=== PATIENT | female | born 1985 | race Caucasian/White ===

== ENCOUNTER 2023-07-02 08:46 | Outpatient (OUT) | payer OTHER, SELFPAY ==
[2023-07-02 09:14] LABS: Basophils Absolute Auto 0.1 10^3/uL (0.0-0.1); Basophils Percent Auto 0.6 % (0.2-2.0); Eosinophils Absolute Auto 0.3 10^3/uL (0.0-0.7); Eosinophils Percent Auto 4.2 % (0.9-7.0); Hematocrit 40.5 % (36.0-48.0); Hemoglobin 13.6 g/dL (12.0-16.0); Immature Granulocytes Abs Auto 0.02 10^3/uL (0.00-0.03); Immature Granulocytes Pct Auto 0.3 % (0.0-0.5); Lymphocytes Absolute Auto 2.2 10^3/uL (1.2-3.8); Lymphocytes Percent Auto 27.8 % (20.5-60.0); Mean Corpuscular HGB Conc 33.6 g/dL (29.9-35.2); Mean Corpuscular Hemoglobin 30.8 pg (26.7-34.0); Mean Corpuscular Volume 91.6 fL (81.0-99.0); Mean Platelet Volume 9.7 fL (9.5-13.5); Monocytes Absolute Auto 0.5 10^3/uL (0.3-0.8); Neutrophils Absolute Auto 4.9 10^3/uL (1.4-6.5); Neutrophils Percent Auto 61.1 % (43.0-75.0); Platelet Count 306 10^3/uL (150-450); Red Blood Count 4.42 10^6/uL (4.20-5.40)
[2023-07-02 12:10] LABS: Alanine Aminotransferase 31 U/L (14-59); Albumin Globulin Ratio 1.3; Albumin Level 4.2 g/dL (3.4-5.0); Alkaline Phosphatase 85 U/L (46-116); Anion Gap 10.9; Aspartate Amino Transferase 25 U/L (15-37); BUN Creatinine Ratio 8.2; Bilirubin Total 0.6 mg/dL (0.2-1.0); Calcium 9.4 mg/dL (8.5-10.1); Carbon Dioxide 27.9 mmol/L (21.0-32.0); Chloride 101 mmol/L (98-107); Chol HDL Ratio 3.8; Cholesterol 153 mg/dL (<=200); Estimated GFR (African America >60 (>=60); Estimated GFR (Non-African Ame 56 (>=60); Free T3 2.69 pg/mL (2.18-3.98); Globulin 3.3 g/dL; Glucose 99 mg/dL (74-106); HDL Cholesterol 40 mg/dL (40-60); LDL Cholesterol Calculated 90.4 mg/dL; Potassium 3.8 mmol/L (3.5-5.1); Sodium 136 mmol/L (136-145); Thyroid Stimulating Hormone 2.282 uIU/mL (0.358-3.740); Total Protein 7.5 g/dL (6.4-8.2); Triglycerides 113 mg/dL (<=150); VLDL CHOLESTEROL 22.6 mg/dL
[2023-07-02 12:58] LABS: Estimated Average Glucose 114 mg/dL; Glycohemoglobin A1C 5.6 % (4.5-6.2)
[2023-07-03 11:09] LABS: Insulin 29.8 uIU/mL (2.6-24.9)
== END 2023-07-02 08:47 | disposition home or self-care (01) ==
LOC: LAB 08:49
PROVIDERS: PCP Family Medicine; Visit Provider Nurse Practitioner Family
DX: Z00.00 Encounter for general adult medical examination without abnormal findings (principal)
CPT/HCPCS: 36415; 80053; 80061; 82306; 83036; 83525; 83540; 84436; 84443; 84481; 85025

== ENCOUNTER 2024-01-11 20:22 | Outpatient (REF) | payer OTHER, SELFPAY ==
[2024-01-15 11:12] LABS: Age Gdln ACOG Testing Note (.); HPV Aptima Negative (Negative); IGP, Aptima HPV, rfx 16/18,45 Note (.)
== END 2024-01-11 20:23 | disposition home or self-care (01) ==
LOC: LAB 20:22
PROVIDERS: PCP Family Medicine; Visit Provider Obstetrics & Gynecology
DX: Z01.419 Encounter for gynecological examination (general) (routine) without abnormal findings (principal)
CPT/HCPCS: 87624; G0145

== ENCOUNTER 2024-01-20 20:18 | Outpatient (REF) | payer OTHER, SELFPAY ==
--- OUTSIDE RECORDS SUMMARY | 2024-01-20 20:21 | XMS_ITS | CCD ---
Author Organization [facility] Care Team Providers Care Vice President Sales And Marketing Name Role Phone MATHIEU, VIRAJ Admitting Unavailable MATHIEU, VIRAJ Attending Unavailable HOY ., DR FALCON Primary Care Unavailable MATHIEU, VIRAJ Consulting Unavailable MATHIEU, VIRAJ Admitting Unavailable MATHIEU, VIRAJ Attending Unavailable HOY ., DR FALCON Primary Care Unavailable MATHIEU, VIRAJ Admitting Unavailable MATHIEU, VIRAJ Attending Unavailable HOY ., DR FALCON Primary Care Unavailable MATHIEU, VIRAJ Consulting Unavailable ZIEBER, DR YAMILET Rodríguez Consulting Unavailable MATHIEU, VIRAJ Admitting Unavailable MATHIEU, VIRAJ Attending Unavailable HOY ., DR FALCON Primary Care Unavailable MATHIEU, VIRAJ Consulting Unavailable UNIQUE FRASER Consulting Unavailable MILLY MACIAS Consulting Unavailable HOY ., DR FALCON Primary Care Unavailable CHRISTINE ., DR RASCON Admitting Unavailable HAY ., DR RASCON Attending Unavailable RICKIE, DR CHAVEZ Hinson Consulting Unavailable HAY ., DR RASCON Consulting Unavailable MATHIEU, VIRAJ Admitting Unavailable MATHIEU, VIRAJ Attending Unavailable HOY ., DR FALCON Primary Care Unavailable MATHIEU, VIRAJ Attending Unavailable Allergies Allergy Classification Reported Allergen(s) Allergy Type Date of Onset Reaction(s) Facility (1 source) Meperidine Drug Allergy 06-11-2013 [facility] Repository Problems Active Problems Problem Classification Problem Date Documented Da te Episodic/Chronic Abdominal pain (1 source) Pelvic and perineal pain; Translations: [PELVIC AND PERINEAL PAIN] Onset: 01-23-2023 Episodic Inflammatory diseases of female pelvic organs (1 source) Inflammatory disease of cervix uteri; Translations: [INFLAMMATORY DISEASE CERVIX UTERI] Onset: 01-23-2023 Episodic Menstrual disorders (9 sources) Dysmenorrhea, unspecified; Translations: [Excessive and frequent menstruation with regular cycle] Onset: 10-29-2022 Chronic Other female genital disorders (1 source) Unspecified dyspareunia; Translations: [UNSPECIFIED DYSPAREUNIA] Onset: 01-23-2023 Chronic Other female genital disorders (1 source) Abnormal uterine and vaginal bleeding, unspecified; Translations: [ABNORMAL UTERINE VAGINAL BLEED UNS] Onset: 01-12-2023 Chronic Other nutritional; endocrine; and metabolic disorders (1 source) Morbid (severe) obesity due to excess calories; Translations: [MORBID SEVERE OBES D/T EXCESS CATRACHO] Onset: 01-23-2023 Chronic Other nutritional; endocrine; and metabolic disorders (1 source) Body mass index (BMI) 40.0-44.9, adult; Translations: [BODY MASS INDEX BMI 40.0-44.9 ADULT] Onset: 01-23-2023 Chronic Residual codes; unclassified (1 source) Acquired absence of other specified parts of digestive tract; Translations: [ACQ ABSENCE OTH PART DIGESTV TRACT] Onset: 01-23-2023 Episodic Past or Other Problems Problem Classification Problem Date Documented Da te Episodic/Chronic Other aftercare (1 source) Other detention (current) drug therapy; Translations: [OTH FORMING ACID DUMPER CURRENT DRUG THERAPY] Onset: 05-08-2022 Episodic Other lower respiratory disease (3 sources) Shortness of breath; Translations: [SHORTNESS OF BREATH] Onset: 05-07-2022 Episodic Other lower respiratory disease (1 source) Other forms of dyspnea; Translations: [OTHER FORMS OF DYSPNEA] Onset: 05-08-2022 Episodic Pleurisy; pneumothorax; pulmonary collapse (1 source) Pleurisy; Translations: [PLEURISY] Onset: 05-08-2022 Episodic Results Test Name Value Interpretation Reference Range Facil ity BUNon 01-09-2023 Urea nitrogen [Mass/Vol] 11.0 mg/dL Normal 7.0-18.0 [facility] [place] Comment on above: Performed By: #### C THANIA, BUN #### [facility] [address] [place] [address] Dr. Katty Gutierrez CBC AUTO DIFFon 01-09-2023 BASO # 0.1 103/ul Normal 0.0-0.1 [facility] [place] Comment on above: Performed By: #### B MP, LIVER #### [facility] [address] [place] [address] Dr. Katty Gutierrez Basophils/100 WBC (Bld) 0.4 % Normal 0.2-2.0 [facility] [place] Comment on above: Performed By: #### B MP, LIVER #### [facility] [address] [place] [address] Dr. Katty Gutierrez EO # 0.1 103/ul Normal 0.0-0.7 [facility] [place] Comment on above: Performed By: #### B MP, LIVER #### [facility] [address] [place] [address] Dr. Katty Gutierrez Eosinophils/100 WBC (Bld) 0.9 % Normal 0.9-7.0 [facility] [place] Comment on above: Performed By: #### B MP, LIVER #### [facility] [address] [place] [address] Dr. Katty Gutierrez Erythrocyte distribution width (RBC) [Ratio] 12.5 % Normal 11.0-15.0 [facility] [place] Comment on above: Performed By: #### B MP, LIVER #### [facility] [address] [place] [address] Dr. Katty Gutierrez Hematocrit (Bld) [Volume fraction] 33.2 % Critically low 36.0-48.0 [facility] [place] Comment on above: Performed By: #### B MP, LIVER #### [facility] [address] [place] [address] Dr. Katty Gutierrez Hemoglobin (Bld) [Mass/Vol] 11.0 g/dL Critically low 12.0-16.0 [facility] [place] Comment on above: Performed By: #### B MP, LIVER #### [facility] [address] [place] [address] Dr. Katty Gutierrez IG # 0.05 10e3/ul Critically high 0.00-0.03 [facility] Comment on above: Performed By: #### B MP, LIVER #### [facility] [address] [place] [address] Dr. Katty Gutierrez IG % 0.4 % Normal 0.0-0.5 [facility] [place] Comment on above: Performed By: #### B MP, LIVER #### [facility] [address] [place] [address] Dr. Katty Gutierrez LYMPH # 1.4 103/ul Normal 1.2-3.8 [facility] Comment on above: Performed By: #### B MP, LIVER #### [facility] [address] [place] [address] Dr. Katty Gutierrez Lymphocytes/100 WBC (Bld) 10.5 % Critically low 20.5-60.0 [facility] Comment on above: Performed By: #### B MP, LIVER #### [facility] [address] [place] [address] Dr. Katty Gutierrez MANUAL DIFF REQ NO Normal [facility] Comment on above: Performed By: #### B MP, LIVER #### [facility] [address] [place] [address] Dr. Katty Gutierrez MCH (RBC) [Entitic mass] 29.8 pg Normal 26.7-34.0 [facility] Comment on above: Performed By: #### B MP, LIVER #### [facility] [address] [place] [address] Dr. Katty Gutierrez MCHC (RBC) [Mass/Vol] 33.1 g/dL Normal 29.9-35.2 [facility] Comment on above: Performed By: #### B MP, LIVER #### [facility] [address] [place] [address] Dr. Katty Gutierrez MCV (RBC) [Entitic vol] 90.0 fL Normal 81.0-99.0 [facility] Comment on above: Performed By: #### B MP, LIVER #### [facility] [address] [place] [address] Dr. Katty Gutierrez MONO # 1.0 103/ul Critically high 0.3-0.8 [facility] Comment on above: Performed By: #### B MP, LIVER #### [facility] [address] [place] [address] Dr. Katty Gutierrez Monocytes/100 WBC (Bld) 7.5 % Normal 1.7-12.0 [facility] Comment on above: Performed By: #### B MP, LIVER #### [facility] [address] [address] [address] Katty Gutierrez NEUT # 11.0 103/ul Critically high 1.4-6.5 [facility] Comment on above: Performed By: #### B MP, LIVER #### [facility] [address] [place] [address] Dr. Katty Gutierrez Neutrophils/100 WBC (Bld) 80.3 % Critically high 43.0-75.0 [facility] Comment on above: Performed By: #### B MP, LIVER #### [facility] [address] [place] [address] Dr. Katty Gutierrez Platelet mean volume (Bld) [Entitic vol] 10.4 fL Normal 9.5-13.5 [facility] Comment on above: Performed By: #### B MP, LIVER #### [facility] [address] [place] [address] Dr. Katty Gutierrez PLT 315 103/ul Normal 150-450 [facility] Comment on above: Performed By: #### B MP, LIVER #### [facility] [address] [place] [address] Dr. Katty Gutierrez RBC 3.69 106/ul Critically low 4.20-5.40 [facility] Comment on above: Performed By: #### B MP, LIVER #### [facility] [address] [place] [address] Dr. Katty Gutierrez WBC 13.7 103/ul Critically high 4.0-11.0 [facility] Comment on above: Performed By: #### B MP, LIVER #### [facility] [address] [place] [address] Dr. Katty Gutierrez CREATININEon 01-09-2023 Creatinine [Mass/Vol] 0.86 mg/dL Normal 0.55-1.02 [facility] [place] Comment on above: Performed By: #### C THANIA, BUN #### [facility] [address] [place] [address] Dr. Katty Gutierrez EGFR-AF GUAMANIAN >60 Normal >=60 [facility] Comment on above: Performed By: #### C THANIA, BUN #### [facility] [address] [place] [address] Dr. Katty Gutierrez EGFR-NON AF GUAMANIAN >60 Normal >=60 [facility] Comment on above: Performed By: #### C THANIA, BUN #### [facility] [address] [place] [address] Dr. Katty Gutierrez PREG QUANT HCGon 01-08-2023 HCG QUANT 2 mIU/mL Normal [facility] [place] Comment on above: Performed By: #### P REGQNT #### [facility] [address] [place] [address] Dr. Katty Gutierrez HCG RANGE SEE BELOW Normal [facility] [place] Comment on above: Result Comment: 5-50 0.2-1 WEEK 50-500 1-2 WEEKS 100-5,000 2-3 WEEKS 500-10,000 3-4 WEEKS 1,000-50,000 4-5 WEEKS 10,000-100,000 5-6 WEEKS 15,000-200,000 6-8 WEEKS 10,000-100,000 2-3 MONTHS Performed By: #### P REGQNT #### [facility] [address] [place] [address] Dr. Katty Gutierrez CBC AUTO DIFFon 01-05-2023 BASO # 0.1 103/ul Normal 0.0-0.1 [facility] [place] Comment on above: Performed By: #### P REGQNT #### [facility] [address] [place] [address] Dr. Katty Gutierrez Basophils/100 WBC (Bld) 0.7 % Normal 0.2-2.0 [facility] [place] Comment on above: Performed By: #### P REGQNT #### [facility] [address] [place] [address] Dr. Katty Gutierrez EO # 0.4 103/ul Normal 0.0-0.7 [facility] [place] Comment on above: Performed By: #### P REGQNT #### [facility] [address] [place] [address] Dr. Katty Gutierrez Eosinophils/100 WBC (Bld) 4.4 % Normal 0.9-7.0 [facility] [place] Comment on above: Performed By: #### P REGQNT #### [facility] [address] [place] [address] Dr. Katty Gutierrez Erythrocyte distribution width (RBC) [Ratio] 12.5 % Normal 11.0-15.0 [facility] [place] Comment on above: Performed By: #### P REGQNT #### [facility] [address] [place] [address] Dr. Katty Gutierrez Hematocrit (Bld) [Volume fraction] 39.1 % Normal 36.0-48.0 [facility] [place] Comment on above: Performed By: #### P REGQNT #### [facility] [address] [place] [address] Dr. Katty Gutierrez Hemoglobin (Bld) [Mass/Vol] 13.6 g/dL Normal 12.0-16.0 [facility] [place] Comment on above: Performed By: #### P REGQNT #### [facility] [address] [place] [address] Dr. Katty Gutierrez IG # 0.04 10e3/ul Critically high 0.00-0.03 [facility] Comment on above: Performed By: #### P REGQNT #### [facility] [address] [place] [address] Dr. Katty Gutierrez IG % 0.5 % Normal 0.0-0.5 [facility] [place] Comment on above: Performed By: #### P REGQNT #### [facility] [address] [place] [address] Dr. Katty Gutierrez LYMPH # 2.1 103/ul Normal 1.2-3.8 [facility] [place] Comment on above: Performed By: #### P REGQNT #### [facility] [address] [place] [address] Dr. Katty Gutierrez Lymphocytes/100 WBC (Bld) 25.2 % Normal 20.5-60.0 [facility] [place] Comment on above: Performed By: #### P REGQNT #### [facility] [address] [place] [address] Dr. Katty Gutierrez MANUAL DIFF REQ NO Normal [facility] Comment on above: Performed By: #### P REGQNT #### [facility] [address] [place] [address] Dr. Katty Gutierrez MCH (RBC) [Entitic mass] 30.4 pg Normal 26.7-34.0 [facility] [place] Comment on above: Performed By: #### P REGQNT #### [facility] [address] [place] [address] Dr. Katty Gutierrez MCHC (RBC) [Mass/Vol] 34.8 g/dL Normal 29.9-35.2 [facility] [place] Comment on above: Performed By: #### P REGQNT #### [facility] [address] [place] [address] Dr. Katty Gutierrez MCV (RBC) [Entitic vol] 87.3 fL Normal 81.0-99.0 [facility] [place] Comment on above: Performed By: #### P REGQNT #### [facility] [address] [place] [address] Dr. Katty Gutierrez MONO # 0.7 103/ul Normal 0.3-0.8 [facility] [place] Comment on above: Performed By: #### P REGQNT #### [facility] [address] [place] [address] Dr. Katty Gutierrez Monocytes/100 WBC (Bld) 8.2 % Normal 1.7-12.0 [facility] [place] Comment on above: Performed By: #### P REGQNT #### [facility] [address] [place] [address] Dr. Katty Gutierrez NEUT # 5.0 103/ul Normal 1.4-6.5 [facility] Comment on above: Performed By: #### P REGQNT #### [facility] [address] [place] [address] Dr. Katty Gutierrez Neutrophils/100 WBC (Bld) 61.0 % Normal 43.0-75.0 [facility] [place] Comment on above: Performed By: #### P REGQNT #### [facility] [address] [place] [address] Dr. Katty Gutierrez Platelet mean volume (Bld) [Entitic vol] 9.8 fL Normal 9.5-13.5 [facility] [place] Comment on above: Performed By: #### P REGQNT #### [facility] [address] [place] [address] Dr. Katty Gutierrez PLT 321 103/ul Normal 150-450 [facility] [place] Comment on above: Performed By: #### P REGQNT #### [facility] [address] [place] [address] Dr. Katty Gutierrez RBC 4.48 106/ul Normal 4.20-5.40 [facility] [place] Comment on above: Performed By: #### P REGQNT #### [facility] [address] [place] [address] Dr. Katty Gutierrez WBC 8.3 103/ul Normal 4.0-11.0 [facility] [place] Comment on above: Performed By: #### P REGQNT #### [facility] [address] [place] [address] Dr. Katty Gutirerez LIVER PROFILEon 01-05-2023 Albumin [Mass/Vol] 4.1 g/dL Normal 3.4-5.0 [facility] Comment on above: Performed By: #### B MP, LIVER #### [facility] [address] [place] [address] Dr. Katty Gutierrez Albumin/Globulin [Mass ratio] 1.3 {ratio} Normal [facility] [place] Comment on above: Performed By: #### B MP, LIVER #### [facility] [address] [place] [address] Dr. Katty Gutierrez ALP [Catalytic activity/Vol] 91 U/L Normal 46-116 [facility] Comment on above: Performed By: #### B MP, LIVER #### [facility] [address] [place] [address] Dr. Katty Gutierrez ALT [Catalytic activity/Vol] 41 U/L Normal 14-59 [facility] Comment on above: Performed By: #### B MP, LIVER #### [facility] [address] [place] [address] Dr. Katty Gutierrez AST [Catalytic activity/Vol] 18 U/L Normal 15-37 [facility] [place] Comment on above: Performed By: #### B MP, LIVER #### [facility] [address] [place] [address] Dr. Katty Gutierrez BILI, CONJUGATED 0.1 mg/dL Normal 0.0-0.2 [facility] Comment on above: Performed By: #### B MP, LIVER #### [facility] [address] [place] [address] Dr. Katty Gutierrez Bilirubin [Mass/Vol] 0.6 mg/dL Normal 0.2-1.0 [facility] [place] Comment on above: Performed By: #### B MP, LIVER #### [facility] [address] [place] [address] Dr. Katty Gutierrez Globulin (S) [Mass/Vol] 3.1 g/dL Normal [facility] [place] Comment on above: Performed By: #### B MP, LIVER #### [facility] [address] [place] [address] Dr. Katty Gutierrez Protein [Mass/Vol] 7.2 g/dL Normal 6.4-8.2 [facility] Comment on above: Performed By: #### B MP, LIVER #### [facility] [address] [place] [address] Dr. Katty Gutierrez PROF CHEM 8 (BAS METB)on Anion gap [Moles/Vol] 13.0 mmol/L Normal [facility] [place] Comment on above: Performed By: #### B MP, LIVER #### [facility] [address] [place] [address] Dr. Katty Gutierrez Calcium [Mass/Vol] 9.2 mg/dL Normal 8.5-10.1 [facility] Comment on above: Performed By: #### B MP, LIVER #### [facility] [address] [place] [address] Dr. Katty Gutierrez Chloride [Moles/Vol] 105 mmol/L Normal 98-107 [facility] Comment on above: Performed By: #### B MP, LIVER #### [facility] [address] [place] [address] Dr. Katty Gutierrez CO2 [Moles/Vol] 25.0 mmol/L Normal 21.0-32.0 [facility] Comment on above: Performed By: #### B MP, LIVER #### [facility] [address] [place] [address] Dr. Katty Gutierrez Creatinine [Mass/Vol] 0.84 mg/dL Normal 0.55-1.02 [facility] [place] Comment on above: Performed By: #### B MP, LIVER #### [facility] [address] [place] [address] Dr. Katty Gutierrez EGFR-AF GUAMANIAN >60 Normal >=60 [facility] Comment on above: Performed By: #### B MP, LIVER #### [facility] [address] [place] [address] Dr. Katty Gutierrez EGFR-NON AF GUAMANIAN >60 Normal >=60 [facility] [place] Comment on above: Performed By: #### B MP, LIVER #### [facility] [address] [place] [address] Dr. Katty Gutierrez Glucose [Mass/Vol] 121 mg/dL Critically high 74-106 [facility] Comment on above: Performed By: #### B MP, LIVER #### [facility] [address] [place] [address] Dr. Katty Gutierrez Potassium [Moles/Vol] 4.0 mmol/L Normal 3.5-5.1 [facility] Comment on above: Performed By: #### B MP, LIVER #### [facility] [address] [place] [address] Dr. Katty Gutierrez Sodium [Moles/Vol] 139 mmol/L Normal 136-145 [facility] Comment on above: Performed By: #### B MP, LIVER #### [facility] [address] [place] [address] Dr. Katty Gutierrez Urea nitrogen [Mass/Vol] 13.0 mg/dL Normal 7.0-18.0 [facility] [place] Comment on above: Performed By: #### B MP, LIVER #### [facility] [address] [place] [address] Dr. Katty Gutierrez Urea nitrogen/Creatinine [Mass ratio] 15.5 mg/mg Normal [facility] Comment on above: Performed By: #### B MP, LIVER #### [facility] [address] [place] [address] Dr. Katty Gutierrez PROTIMEon 01-05-2023 INR Coag (PPP) [Relative time] 0.96 {INR} Normal [facility] Comment on above: Performed By: #### P T, PTT #### [facility] [address] [place] [address] Dr. Katty Gutierrez INR GUIDELINES SEE BELOW Normal [facility] Comment on above: Result Comment: RICARDA RED INR: 2.0 - 3.0 CONDITIONS NOT LISTED BELOW 2.5 - 3.5 FOR PROSTHETIC HEART VALVE REPLACEMENT 2.5 - 3.5 RECURRENT THROMBOSIS Performed By: #### P T, PTT #### [facility] [address] [place] [address] Dr. Katty Gutierrez PT Coag (PPP) [Time] 10.2 s Normal 9.0-11.6 [facility] [place] Comment on above: Performed By: #### P T, PTT #### [facility] [address] [place] [address] Dr. Katty Gutierrez PTTon 01-05-2023 aPTT Coag (Bld) [Time] 26.2 s Normal 22.3-36.2 [facility] Comment on above: Performed By: #### P T, PTT #### [facility] [address] [place] [address] Dr. Katty Gutierrez TYPE AND SCREENon 01-05-2023 TYPE AND SCREEN Negative Normal [facility] Comment on above: Performed By: #### B MP, LIVER #### [facility] [address] [place] [address] Dr. Katty Gutierrez CBC AUTO DIFFon 10-29-2022 BASO # 0.1 103/ul Normal 0.0-0.1 [facility] [place] Comment on above: Performed By: #### C BC #### [facility] [address] [place] [address] Dr. Katty Gutierrez Basophils/100 WBC (Bld) 0.7 % Normal 0.2-2.0 [facility] [place] Comment on above: Performed By: #### C BC #### [facility] [address] [place] [address] Dr. Katty Gutierrez EO # 0.3 103/ul Normal 0.0-0.7 [facility] [place] Comment on above: Performed By: #### C BC #### [facility] [address] [place] [address] Dr. Katty Gutierrez Eosinophils/100 WBC (Bld) 3.2 % Normal 0.9-7.0 [facility] [place] Comment on above: Performed By: #### C BC #### [facility] [address] [place] [address] Dr. Katty Gutierrez Erythrocyte distribution width (RBC) [Ratio] 12.4 % Normal 11.0-15.0 [facility] [place] Comment on above: Performed By: #### C BC #### [facility] [address] [place] [address] Dr. Katty Gutierrez Hematocrit (Bld) [Volume fraction] 42.7 % Normal 36.0-48.0 [facility] [place] Comment on above: Performed By: #### C BC #### [facility] [address] [place] [address] Dr. Katty Gutierrez Hemoglobin (Bld) [Mass/Vol] 14.3 g/dL Normal 12.0-16.0 [facility] [place] Comment on above: Performed By: #### C BC #### [facility] [address] [place] [address] Dr. Katty Gutierrez IG # 0.04 10e3/ul Critically high 0.00-0.03 [facility] Comment on above: Performed By: #### C BC #### [facility] [address] [place] [address] Dr. Katty Gutierrez IG % 0.4 % Normal 0.0-0.5 [facility] [place] Comment on above: Performed By: #### C BC #### [facility] [address] [place] [address] Dr. Katty Gutierrez LYMPH # 2.5 103/ul Normal 1.2-3.8 [facility] [place] Comment on above: Performed By: #### C BC #### [facility] [address] [place] [address] Dr. Katty Gutierrez Lymphocytes/100 WBC (Bld) 24.7 % Normal 20.5-60.0 [facility] [place] Comment on above: Performed By: #### C BC #### [facility] [address] [place] [address] Dr. Katty Gutierrez MANUAL DIFF REQ NO Normal [facility] Comment on above: Performed By: #### C BC #### [facility] [address] [place] [address] Dr. Katty Gutierrez MCH (RBC) [Entitic mass] 30.0 pg Normal 26.7-34.0 [facility] [place] Comment on above: Performed By: #### C BC #### [facility] [address] [place] [address] Dr. Katty Gutierrez MCHC (RBC) [Mass/Vol] 33.5 g/dL Normal 29.9-35.2 [facility] [place] Comment on above: Performed By: #### C BC #### [facility] [address] [place] [address] Dr. Katty Gutierrez MCV (RBC) [Entitic vol] 89.7 fL Normal 81.0-99.0 [facility] [place] Comment on above: Performed By: #### C BC #### [facility] [address] [place] [address] Dr. Katty Gutierrez MONO # 0.7 103/ul Normal 0.3-0.8 [facility] [place] Comment on above: Performed By: #### C BC #### [facility] [address] [place] [address] Dr. Katty Gutierrez Monocytes/100 WBC (Bld) 7.0 % Normal 1.7-12.0 [facility] [place] Comment on above: Performed By: #### C BC #### [facility] [address] [place] [address] Dr. Katty Gutierrez NEUT # 6.5 103/ul Normal 1.4-6.5 [facility] [place] Comment on above: Performed By: #### C BC #### [facility] [address] [place] [address] Dr. Katty Gutierrez Neutrophils/100 WBC (Bld) 64.0 % Normal 43.0-75.0 [facility] [place] Comment on above: Performed By: #### C BC #### [facility] [address] [place] [address] Dr. Katty Gutierrez Platelet mean volume (Bld) [Entitic vol] 9.5 fL Normal 9.5-13.5 [facility] [place] Comment on above: Performed By: #### C BC #### [facility] [address] [place] [address] Dr. Katty Gutierrez PLT 363 103/ul Normal 150-450 [facility] [place] Comment on above: Performed By: #### C BC #### [facility] [address] [place] [address] Dr. aKtty Gutierrez RBC 4.76 106/ul Normal 4.20-5.40 [facility] [place] Comment on above: Performed By: #### C BC #### [facility] [address] [place] [address] Dr. Katty Gutierrez WBC 10.1 103/ul Normal 4.0-11.0 [facility] [place] Comment on above: Performed By: #### C BC #### [facility] [address] [place] [address] Dr. Katty Gutierrez FREE T4on 10-29-2022 Free T4 [Mass/Vol] 1.04 ng/dL Normal 0.76-1.46 [facility] Comment on above: Performed By: #### P REGQNT #### [facility] [address] [place] [address] Dr. Katty Gutierrez PREG QUANT HCGon 10-29-2022 HCG QUANT <1 Normal [facility] [place] Comment on above: Performed By: #### P REGQNT, TSH #### [facility] [address] [place] [address] Dr. Katty Gutierrez HCG RANGE SEE BELOW Normal [facility] [place] Comment on above: Result Comment: 5-50 0.2-1 WEEK 50-500 1-2 WEEKS 100-5,000 2-3 WEEKS 500-10,000 3-4 WEEKS 1,000-50,000 4-5 WEEKS 10,000-100,000 5-6 WEEKS 15,000-200,000 6-8 WEEKS 10,000-100,000 2-3 MONTHS Performed By: #### P REGQNT, TSH #### [facility] [address] [place] [address] Dr. Katty Gutierrez PROTIMEon 10-29-2022 INR Coag (PPP) [Relative time] 0.97 {INR} Normal [facility] Comment on above: Performed By: #### P REGQNT #### [facility] [address] [place] [address] Dr. Katty Gutierrez INR GUIDELINES SEE BELOW Normal [facility] Comment on above: Result Comment: RICARDA RED INR: 2.0 - 3.0 CONDITIONS NOT LISTED BELOW 2.5 - 3.5 FOR PROSTHETIC HEART VALVE REPLACEMENT 2.5 - 3.5 RECURRENT THROMBOSIS Performed By: #### P REGQNT #### [facility] [address] [place] [address] Dr. Katty Gutierrez PT Coag (PPP) [Time] 10.5 s Normal 9.0-11.6 [facility] [place] Comment on above: Performed By: #### P REGQNT #### [facility] [address] [place] [address] Dr. Katty Gutierrez PTTon 10-29-2022 aPTT Coag (Bld) [Time] 26.7 s Normal 22.3-36.2 [facility] [place] Comment on above: Performed By: #### P REGQNT #### [facility] [address] [place] [address] Dr. Katty Gutierrez TSHon 10-29-2022 TSH 1.956 uIU/mL Normal 0.358-3.740 [facility] Comment on above: Performed By: #### P REGQNT, TSH #### [facility] [address] [place] [address] Dr. Katty Gutierrez US PELVIS AND TRANSVAGon US PELVIS AND TRANSVAG EXAMINATION: US PELVIS AND TRANSVAG HISTORY: Irregular periods ; heavy, painful periods COMPARISON: No relevant comparison available. TECHNIQUE: Transabdominal and transvaginal sonographic examination. FINDINGS: UTERUS: Numerous nabothian cysts within the cervix. Uterus size: 9.6 x 7.60 6.0 cm ENDOMETRIUM: Heterogeneous and abnormally thickened endometrium with a slightly more defined 1.4 x 1.8 x 0.6 cm area within the fundal region; mass versus blood products. Endometrial thickness: 17 mm. RIGHT OVARY: Contains a 2.3 cm benign-appearing cysts. Duplex Doppler demonstrates normal waveform and flow; resistive index 0.4. Ovary size: 4.3 x 3.0 x 3.2 cm LEFT OVARY: Normal size and appearance. Duplex Doppler demonstrates normal waveform and flow; resistive index 0.4. Ovary size: 3.0 x 2.8 x 2.0 cm CUL-DE-SAC: Unremarkable. No significant free fluid. BLADDER: Unremarkable. OTHER: None. IMPRESSION: 1. Polyp/mass within the fundal endometrial cavity versus blood products. Abnormally thickened, heterogeneous endometrium (17 mm). Follow-up ultrasound in 6 weeks is recommended to evaluate persistence of these findings versus resolution. Electronically authenticated by: YAMILET SHAH Date: 2022-10-29 17:23 Normal [facility] BNPon 05-07-2022 Natriuretic peptide B (Bld) [Mass/Vol] 12.0 pg/mL Normal <=450.0 [facility] Comment on above: Performed By: #### P REGQNT #### [facility] [address] [address] [address] Katty Gutierrez CBC AUTO DIFFon 05-07-2022 BASO # 0.1 103/ul Normal 0.0-0.1 [facility] [place] Comment on above: Performed By: #### P REGQNT #### [facility] [address] [address] [address] Katty Gutierrez Basophils/100 WBC (Bld) 0.6 % Normal 0.2-2.0 [facility] [place] Comment on above: Performed By: #### P REGQNT #### [facility] [address] [place] [address] Dr. Katty Gutierrez EO # 0.3 103/ul Normal 0.0-0.7 [facility] Comment on above: Performed By: #### P REGQNT #### [facility] [address] [place] [address] Dr. Katty Gutierrez Eosinophils/100 WBC (Bld) 4.0 % Normal 0.9-7.0 [facility] Comment on above: Performed By: #### P REGQNT #### [facility] [address] [place] [address] Dr. Katty Gutierrez Erythrocyte distribution width (RBC) [Ratio] 12.7 % Normal 11.0-15.0 [facility] Comment on above: Performed By: #### P REGQNT #### [facility] [address] [place] [address] Dr. Katty Gutierrez Hematocrit (Bld) [Volume fraction] 40.6 % Normal 36.0-48.0 [facility] [place] Comment on above: Performed By: #### P REGQNT #### [facility] [address] [place] [address] Dr. Katty Gutierrez Hemoglobin (Bld) [Mass/Vol] 13.5 g/dL Normal 12.0-16.0 [facility] [place] Comment on above: Performed By: #### P REGQNT #### [facility] [address] [place] [address] Dr. Katty Gutierrez IG # 0.03 10e3/ul Normal 0.00-0.03 [facility] Comment on above: Performed By: #### P REGQNT #### [facility] [address] [place] [address] Dr. Katty Gutierrez IG % 0.4 % Normal 0.0-0.5 [facility] Comment on above: Performed By: #### P REGQNT #### [facility] [address] [place] [address] Dr. Katty Gutierrez LYMPH # 2.3 103/ul Normal 1.2-3.8 [facility] Comment on above: Performed By: #### P REGQNT #### [facility] [address] [place] [address] Dr. Katty Gutierrez Lymphocytes/100 WBC (Bld) 27.4 % Normal 20.5-60.0 [facility] [place] Comment on above: Performed By: #### P REGQNT #### [facility] [address] [place] [address] Dr. Katty Gutierrez MANUAL DIFF REQ NO Normal [facility] Comment on above: Performed By: #### P REGQNT #### [facility] [address] [place] [address] Dr. Katty Gutierrez MCH (RBC) [Entitic mass] 29.9 pg Normal 26.7-34.0 [facility] Comment on above: Performed By: #### P REGQNT #### [facility] [address] [place] [address] Dr. Katty Gutierrez MCHC (RBC) [Mass/Vol] 33.3 g/dL Normal 29.9-35.2 [facility] Comment on above: Performed By: #### P REGQNT #### [facility] [address] [place] [address] Dr. Katty Gutierrez MCV (RBC) [Entitic vol] 90.0 fL Normal 81.0-99.0 [facility] [place] Comment on above: Performed By: #### P REGQNT #### [facility] [address] [place] [address] Dr. Katty Gutierrez MONO # 0.6 103/ul Normal 0.3-0.8 [facility] [place] Comment on above: Performed By: #### P REGQNT #### [facility] [address] [place] [address] Dr. Katty Gutierrez Monocytes/100 WBC (Bld) 7.2 % Normal 1.7-12.0 [facility] Comment on above: Performed By: #### P REGQNT #### [facility] [address] [place] [address] Dr. Katty Gutierrez NEUT # 5.1 103/ul Normal 1.4-6.5 [facility] Comment on above: Performed By: #### P REGQNT #### [facility] [address] [address] [address] Katty Gutierrez Neutrophils/100 WBC (Bld) 60.4 % Normal 43.0-75.0 [facility] [place] Comment on above: Performed By: #### P REGQNT #### [facility] [address] [place] [address] Dr. Katty Gutierrez Platelet mean volume (Bld) [Entitic vol] 10.0 fL Normal 9.5-13.5 [facility] [place] Comment on above: Performed By: #### P REGQNT #### [facility] [address] [place] [address] Dr. Katty Gutierrez PLT 319 103/ul Normal 150-450 [facility] [place] Comment on above: Performed By: #### P REGQNT #### [facility] [address] [place] [address] Dr. aKtty Gutierrez RBC 4.51 106/ul Normal 4.20-5.40 [facility] Comment on above: Performed By: #### P REGQNT #### [facility] [address] [place] [address] Dr. Katty Gutierrez WBC 8.5 103/ul Normal 4.0-11.0 [facility] [place] Comment on above: Performed By: #### P REGQNT #### [facility] [address] [place] [address] Dr. Katty Gutierrez CTA CHEST WO W CONon 07-13-2 022 CTA CHEST WO W CON EXAMINATION: CTA CHEST WO W CON HISTORY: SHORTNESS OF BREATH , chest pressure COMPARISON: No relevant comparison available. TECHNIQUE: Axial, Coronal, and Sagittal images were created without and with IV contrast. Dose reduction techniques were achieved by using automated exposure control and/or adjustment of mA and/or kV according to patient size and/or use of iterative reconstruction technique. FINDINGS: LUNGS: No visible pulmonary disease. PLEURA: No mass, effusion, or pneumothorax. VASCULATURE: No abnormality. JUDY: No mass or adenopathy. MEDIASTINUM: No mass or adenopathy. CARDIAC: No enlargement, pericardial thickening, or significant calcification. AORTA: No aneurysm or dissection. CHEST WALL: No mass or axillary adenopathy. BONES: No bone lesion or fracture. LIMITED ABDOMEN: No suspicious findings. Limited images of the upper abdomen. OTHER: Negative. IMPRESSION: No central pulmonary thromboembolic disease Clear lungs Electronically authenticated by: CHAVEZ DAMIAN Date: 2022-05-07 12:19 Normal [facility] PROF CHEM 8 (BAS METB)on Anion gap [Moles/Vol] 14.9 mmol/L Normal [facility] [place] Comment on above: Performed By: #### P REGQNT #### [facility] [address] [address] [address] Katty Gutierrez Calcium [Mass/Vol] 9.4 mg/dL Normal 8.5-10.1 [facility] Comment on above: Performed By: #### P REGQNT #### [facility] [address] [place] [address] Dr. Katty Gutierrez Chloride [Moles/Vol] 104 mmol/L Normal 98-107 [facility] [place] Comment on above: Performed By: #### P REGQNT #### [facility] [address] [place] [address] Dr. Katty Gutierrez CO2 [Moles/Vol] 26.1 mmol/L Normal 21.0-32.0 [facility] Comment on above: Performed By: #### P REGQNT #### [facility] [address] [place] [address] Dr. Katty Gutierrez Creatinine [Mass/Vol] 0.96 mg/dL Normal 0.55-1.02 [facility] [place] Comment on above: Performed By: #### P REGQNT #### [facility] [address] [place] [address] Dr. Katty Gutierrez EGFR-AF GUAMANIAN >60 Normal >=60 [facility] Comment on above: Performed By: #### P REGQNT #### [facility] [address] [place] [address] Dr. Katty Gutierrez EGFR-NON AF GUAMANIAN >60 Normal >=60 [facility] [place] Comment on above: Performed By: #### P REGQNT #### [facility] [address] [place] [address] Dr. Katty Gutierrez Glucose [Mass/Vol] 104 mg/dL Normal 74-106 [facility] Comment on above: Performed By: #### P REGQNT #### [facility] [address] [address] [address] Katty Gutierrez Potassium [Moles/Vol] 4.0 mmol/L Normal 3.5-5.1 [facility] [place] Comment on above: Performed By: #### P REGQNT #### [facility] [address] [address] [address] Katty Gutierrez Sodium [Moles/Vol] 141 mmol/L Normal 136-145 [facility] Comment on above: Performed By: #### P REGQNT #### [facility] [address] [place] [address] Dr. Katty Gutierrez Urea nitrogen [Mass/Vol] 8.0 mg/dL Normal 7.0-18.0 [facility] [place] Comment on above: Performed By: #### P REGQNT #### [facility] [address] [place] [address] Dr. Katty Gutierrez Urea nitrogen/Creatinine [Mass ratio] 8.3 mg/mg Normal [facility] [place] Comment on above: Performed By: #### P REGQNT #### [facility] [address] [place] [address] Dr. Katty Gutierrez TROPONIN, HIGH SENSITIVITYon 05-07-2022 HSTROP <4.0 Normal 4.0-51.3 [facility] [place] Comment on above: Result Comment: CUT- OFF POINTS HAVE BEEN ESTABLISHED BASED ON THE FOURTH UNIVERSAL DEFINITIONS OF MYOCARDIAL INFARCTION. THE UPPER REFERENCE LIMIT (URL) OF TROPONIN, DEFINED THE 99TH PERCENTILE OF cTnI DISTRIBUTION IN A REFERENCE POPULATION, HAS BEEN CONFIRMED THE DECISION THRESHOLD FOR VA DIAGNOSIS. Performed By: #### P REGQNT #### [facility] [address] [place] [address] Dr. Katty Gutierrez Encounters Encounter Date Encounter Type Care Provider Facility Start: 01-11-2024 End: 01-11-2024 ambulatory VIRAJ WRIGHT Not Available Start: 01-12-2023 Encounter for prepro cedural cardiovascular examination VIRAJ WRIGHT [facility] Start: 01-08-2023 End: 01-09-2023 ambulatory VIRAJ MATHIEU Facility:[facility] Start: 01-05-2023 End: 01-06-2023 ambulatory VIRAJ MATHIEU Facility:[facility] Start: 01-05-2023 End: 01-06-2023 Encounter for preprocedural cardiovascular examination VIRAJ ZALDIVARO Facility:[facility] Start: 12-29-2022 Encounter for other preprocedural examination VIRAJ MATHIEU [facility] [place] Start: 12-26-2022 End: 12-27-2022 ambulatory VIRAJ MATHIEU Facility:[facility] Start: 12-26-2022 End: 12-27-2022 Encounter for other preprocedural examination VIRAJ ZALDIVARO Facility:[facility] Start: 10-29-2022 End: 10-30-2022 ambulatory VIRAJ MATHIEU Facility:[facility] Start: 05-29-2022 ambulatory VIRAJ ZALDIVARO Facility:[facility] Start: 05-07-2022 End: 05-07-[address] TERRIE BE . Facility:[facility] Payers Date Payer Category Payer Unknown [id number] 2.16.84 [id number] 1987 Unknown [id number] 2.16.84 [id number] 1987 Unknown [id number] 2.16.84 [id number] 1987 Unknown [id number] 2.16.84 [id number] 1987 Unknown [id number] 2.16.84 [id number] 1987 Unknown [id number] 2.16.84 [id number] 1987 Unknown [id number] 2.16.84 [id number] 1959 Private Health Insurance [id number] 1957 Self-pay Clinical Note 03-16-2023 Note Date & Type Note Facility 01-08-2023 Note OPERATIVE NOTE OPERATION DATE: 01/08/2023 PROCEDURE: Robotic assisted laparoscopic hysterectomy with bilateral salpingectomy with right oophorectomy. PREOPERATIVE DIAGNOSIS: Menorrhagia, dysmenorrhea, dyspareunia, pelvic pain. POSTOPERATIVE DIAGNOSIS: Menorrhagia, dysmenorrhea, dyspareunia, pelvic pain. ANESTHESIA: General. SURGEON: Viraj Wright D.O. TRAFFIC MAINTENANCE OFFICER: AVTAR Gilbert URINE OUTPUT: Yellow and clear. BLOOD LOSS: 150 mL. SPECIMEN: Uterus, bilateral tubes and right ovary. FINDINGS: Enlarged uterus. Normal appearing ovaries and tubes. PROCEDURE: The patient was taken back to the operating room, where she was prepped and draped in the normal sterile fashion after being placed in the dorsal lithotomy position. Patient's anesthesia was found to be adequate. Surgical timeout was performed using two patient identifiers. SCDs were on and in place. Two grams of Ancef were given prior to the surgery. Sterile Grewal catheter was inserted. Standard size VCare was secured to the uterine cervix and the surgeon changed gloves. Attention then was turned to the patient's abdomen, where a supraumbilical incision was then made. Two S retractors were used to identify the patient's fascia. The fascia was then tented up using Dom clamps and the patient's fascia was incised sharply. Patient's abdomen was identified and entered bluntly. The patient had the trocar placed and a pneumoperitoneum was obtained. Approximately 4 liters of CO2 gas was used. The camera was then placed through the trocar. At this time, two robot trocars were placed in the patient's left and right side, two hand widths from the midline, and this was placed under direct visualization. The patient's tube on the right side was tended up and the vessel sealer was then used to come across the mesosalpinx, and this was carried down to the uterine ovarian ligament. The vessel sealer was carried down serially to the broad ligament, to the area of the bladder flap, which was then created anteriorly, and the uterine arteries were skeletonized and sealed using the vessel sealer. The colpotomy was made using the monopolar cautery on cut, and this was carried circumferentially, posteriorly to anteriorly, until the uterus was amputated. The specimen was then removed intact through the vagina, without difficulty. The vagina was then closed using two running V-Loc in a non-lock fashion. The robot was undocked. The abdomen was desufflated. The skin defects were closed using 4-0 Vicryl. Please note, the fascia was closed using 0 Vicryl. Sponge, lap and needle counts were correct x2. Patient was taken to recovery room in stable condition. The patient was awakened by Anesthesia first. Patient tolerated procedure well [facility] Clinical Note 01-08-2023 Note Date & Type Note Facility 01-08-2023 Note OP Note OPERATION DATE: 01/08/2023 ADDENDUM: Please note that the patient had her right ovary removed. Please note that the vessel sealer was used to come across the infundibulopelvic ligament, down to the broad ligament. Otherwise, the note can stay the same. [facility] Summary Purpose Family History No Family History Records FoundNo Family History Records Found Advance Directives No Advanced Directives Records FoundNo Advanced Directives Records Found Additional Source Comments INFORMATION SOURCE (unrecogn ized section and content) DATE CREATED AUTHOR 02/18/2023 [facility] DATE CREATED AUTHOR AUTHOR'S ORGANIZ ATION 01/11/2024 [facility] EPIC FOR RECORDS PERTAINING TO PATIENTS WHO ARE OR HAVE BEEN ENROLLED IN A CHEMICAL DEPENDENCY/SUBSTANCEABUSE PROGRAM, SOME INFORMATION MAY BE OMITTED. This clinical summary was aggregated from multiple sources. Caution should be exercised in using it in the provision of clinical care. This summary normalizes information from multiple sources, and as a consequence, information in this document may materially change the coding, format and clinical context of patient data. In addition, data may be omitted in some cases. CLINICAL DECISIONS SHOULD BE BASED ON THE PRIMARY CLINICAL RECORDS. [facility] [employer] provides no warranty or guarantee of the accuracy or completeness of information in this document.
== END 2024-01-20 20:19 | disposition home or self-care (01) ==
LOC: LAB 20:18
PROVIDERS: PCP Family Medicine; Visit Provider Obstetrics & Gynecology
DX: Z01.419 Encounter for gynecological examination (general) (routine) without abnormal findings (principal); R87.615 Unsatisfactory cytologic smear of cervix; D22.5 Melanocytic nevi of trunk
CPT/HCPCS: 36415; 88304

== ENCOUNTER 2025-04-25 07:18 | Outpatient (OUT) | payer OTHER, SELFPAY ==
--- OUTSIDE RECORDS SUMMARY | 2025-04-25 07:21 | XMS_ITS | CCD ---
Author Organization [facility] Care Team Providers Care Vest Maker Name Role Phone MATHIEU, VIRAJ Admitting Unavailable MATHIEU, VIRAJ Attending Unavailable HOY ., DR FALCON Primary Care Unavailable MATHIEU, VIRAJ Consulting Unavailable MATHIEU, VIRAJ Admitting Unavailable MATHIEU, VIRAJ Attending Unavailable HOY ., DR FALCON Primary Care Unavailable MATHIEU, VIRAJ Admitting Unavailable MATHIEU, VIRAJ Attending Unavailable HOY ., DR FALCON Primary Care Unavailable MATHIEU, VIRAJ Consulting Unavailable LAYSSA, DR YAMILET Rodríguez Consulting Unavailable MATHIEU, VIRAJ Admitting Unavailable MATHIEU, VIRAJ Attending Unavailable HOY ., DR FALCON Primary Care Unavailable MATHIEU, VIRAJ Consulting Unavailable UNIQUE FRASER Consulting Unavailable MILLY MACIAS Consulting Unavailable HOY ., DR FALCON Primary Care Unavailable CHRISTINE ., DR RASCON Admitting Unavailable HAY ., DR RASCON Attending Unavailable CORNING, DR CHAVEZ Hinson Consulting Unavailable HAY ., DR RASCON Consulting Unavailable MATHIEU, VIRAJ Admitting Unavailable MATHIEU, VIRAJ Attending Unavailable HOY ., DR FALCON Primary Care Unavailable MATHIEU, VIRAJ Attending Unavailable MATHIEU, VIRAJ Attending Unavailable Allergies Allergy Classification Reported Allergen(s) Allergy Type Date of Onset Reaction(s) Facility (1 source) Meperidine Drug Allergy 06-11-2013 [facility] Repository Problems Active Problems Problem [...] te Episodic/Chronic Other aftercare (1 source) Other group home (current) drug therapy; Translations: [OTH NURSING HOME CURRENT DRUG THERAPY] Onset: 05-08-2022 Episodic Other [...] Urea nitrogen [Mass/Vol] 11.0 mg/dL Normal 7.0-18.0 [facility] Comment on above: Performed By: #### C THANIA, BUN #### [facility] [address] [place] [address] Dr. Katty Gutierrez CBC AUTO DIFFon 01-09-2023 BASO # 0.1 103/ul Normal 0.0-0.1 [facility] Comment on above: Performed By: #### B MP, LIVER #### [facility] [address] [place] [address] Dr. Katty Gutierrez Basophils/100 WBC (Bld) 0.4 % Normal 0.2-2.0 [facility] Comment on above: Performed By: #### B MP, LIVER #### [facility] [address] [place] [address] Dr. Katty Gutierrez EO # 0.1 103/ul Normal 0.0-0.7 [facility] Comment on above: Performed By: #### B MP, LIVER #### [facility] [address] [place] [address] Dr. Katty Gutierrez Eosinophils/100 WBC (Bld) 0.9 % Normal 0.9-7.0 [facility] Comment on above: Performed By: #### B MP, LIVER #### [facility] [address] [place] [address] Dr. Katty Gutierrez Erythrocyte distribution width (RBC) [Ratio] 12.5 % Normal 11.0-15.0 [facility] Comment on above: Performed By: #### B MP, LIVER #### [facility] [address] [place] [address] Dr. Katty Gutierrez Hematocrit (Bld) [Volume fraction] 33.2 % Critically low 36.0-48.0 [facility] Comment on above: Performed By: #### B MP, LIVER #### [facility] [address] [place] [address] Dr. Katty Gutierrez Hemoglobin (Bld) [Mass/Vol] 11.0 g/dL Critically low 12.0-16.0 [facility] Comment on above: Performed By: #### B MP, LIVER #### [facility] [address] [place] [address] Dr. Katty Gutierrez IG # 0.05 10e3/ul Critically high 0.00-0.[address] [facility] Comment on above: Performed By: #### B MP, LIVER #### [facility] [address] [place] [address] Dr. Katty Gutierrez IG % 0.4 % Normal 0.0-0.5 [facility] Comment on above: Performed By: #### B MP, LIVER #### [facility] [address] [address] [address] Katty Gutierrez LYMPH # 1.4 103/ul Normal 1.2-3.8 [facility] Comment on above: Performed By: #### B MP, LIVER #### [facility] [address] [place] [address] Dr. Katty Gutierrez Lymphocytes/100 WBC (Bld) 10.5 % Critically low 20.5-60.0 [facility] Comment on above: Performed By: #### B MP, LIVER #### [facility] [address] [place] [address] Dr. Katty Gutierrez MANUAL DIFF REQ NO Normal [facility] Comment on above: Performed By: #### B MP, LIVER #### [facility] [address] [place] [address] Dr. Katty Gutierrez MCH (RBC) [Entitic mass] 29.8 pg Normal 26.7-34.0 [facility] Comment on above: Performed By: #### B MP, LIVER #### [facility] [address] [place] [address] Dr. Katty Gutierrez MCHC (RBC) [Mass/Vol] 33.1 g/dL Normal 29.9-35.2 [facility] Comment on above: Performed By: #### B MP, LIVER #### [facility] [address] [place] [address] Dr. Katty Gutierrez MCV (RBC) [Entitic vol] 90.0 fL Normal 81.0-99.0 [facility] Comment on above: Performed By: #### B MP, LIVER #### [facility] [address] [place] [address] Dr. Katty Gutierrez MONO # 1.0 103/ul Critically high 0.3-0.8 [facility] Comment on above: Performed By: #### B MP, LIVER #### [facility] [address] [place] [address] Dr. Katty Gutierrez Monocytes/100 WBC (Bld) 7.5 % Normal 1.7-12.0 [facility] Comment on above: Performed By: #### B MP, LIVER #### [facility] [address] [address] [address] Katty Gutierrez NEUT # 11.0 103/ul Critically high 1.4-6.5 [facility] Comment on above: Performed By: #### B MP, LIVER #### [facility] [address] [address] [address] Katty Gutierrez Neutrophils/100 WBC (Bld) 80.3 % Critically high 43.0-75.0 [facility] Comment on above: Performed By: #### B MP, LIVER #### [facility] [address] [address] [address] Katty Gutierrez Platelet mean volume (Bld) [Entitic vol] 10.4 fL Normal 9.5-13.5 [facility] Comment on above: Performed By: #### B MP, LIVER #### [facility] [address] [address] [address] Katty Gutierrez PLT 315 103/ul Normal 150-450 [facility] Comment on above: Performed By: #### B MP, LIVER #### [facility] [address] [address] [address] Katty Gutierrez RBC 3.69 106/ul Critically low 4.20-5.40 [facility] Comment on above: Performed By: #### B MP, LIVER #### [facility] [address] [address] [address] Katty Gutierrez WBC 13.7 103/ul Critically high 4.0-11.0 [facility] Comment on above: Performed By: #### B MP, LIVER #### [facility] [address] [place] [address] Dr. Katty Gutierrez CREATININEon 01-09-2023 Creatinine [Mass/Vol] 0.86 mg/dL Normal 0.55-1.02 [facility] Comment on above: Performed By: #### C THANIA, BUN #### [facility] [address] [place] [address] Dr. Katty Gutierrez EGFR-AF SENEGALESE >60 Normal >=60 [facility] Comment on above: Performed By: #### C THANIA, BUN #### [facility] [address] [place] [address] Dr. Katty Gutierrez EGFR-NON AF SENEGALESE >60 Normal >=60 [facility] Comment on above: Performed By: #### C THANIA, BUN #### [facility] [address] [place] [address] Dr. Katty Gutierrez PREG QUANT HCGon 01-08-2023 HCG QUANT 2 mIU/mL Normal [facility] Comment on above: Performed By: #### P REGQNT #### [facility] [address] [place] [address] Dr. Katty Gutierrez HCG RANGE SEE BELOW Normal [facility] Comment on above: Result Comment: 5-50 0.2-1 WEEK 50-500 1-2 WEEKS 100-5,000 2-3 WEEKS 500-10,000 3-4 WEEKS 1,000-50,000 4-5 WEEKS 10,000-100,000 5-6 WEEKS 15,000-200,000 6-8 WEEKS 10,000-100,000 2-3 MONTHS Performed By: #### P REGQNT #### [facility] [address] [place] [address] Dr. Katty Gutierrez CBC AUTO DIFFon 01-05-2023 BASO # 0.1 103/ul Normal 0.0-0.1 [facility] Comment on above: Performed By: #### P REGQNT #### [facility] [address] [place] [address] Dr. Katty Gutierrez Basophils/100 WBC (Bld) 0.7 % Normal 0.2-2.0 [facility] Comment on above: Performed By: #### P REGQNT #### [facility] [address] [place] [address] Dr. Katty Gutierrez EO # 0.4 103/ul Normal 0.0-0.7 [facility] Comment on above: Performed By: #### P REGQNT #### [facility] [address] [place] [address] Dr. Katty Gutierrez Eosinophils/100 WBC (Bld) 4.4 % Normal 0.9-7.0 [facility] Comment on above: Performed By: #### P REGQNT #### [facility] [address] [place] [address] Dr. Katty Gutierrez Erythrocyte distribution width (RBC) [Ratio] 12.5 % Normal 11.0-15.0 [facility] Comment on above: Performed By: #### P REGQNT #### [facility] [address] [place] [address] Dr. Katty Gutierrez Hematocrit (Bld) [Volume fraction] 39.1 % Normal 36.0-48.0 [facility] Comment on above: Performed By: #### P REGQNT #### [facility] [address] [place] [address] Dr. Katty Gutierrez Hemoglobin (Bld) [Mass/Vol] 13.6 g/dL Normal 12.0-16.0 [facility] Comment on above: Performed By: #### P REGQNT #### [facility] [address] [place] [address] Dr. Katty Gutierrez IG # 0.04 10e3/ul Critically high 0.00-0.[address] [facility] Comment on above: Performed By: #### P REGQNT #### [facility] [address] [place] [address] Dr. Katty Gutierrez IG % 0.5 % Normal 0.0-0.5 [facility] Comment on above: Performed By: #### P REGQNT #### [facility] [address] [place] [address] Dr. Katty Gutierrez LYMPH # 2.1 103/ul Normal 1.2-3.8 [facility] Comment on above: Performed By: #### P REGQNT #### [facility] [address] [place] [address] Dr. Katty Gutierrez Lymphocytes/100 WBC (Bld) 25.2 % Normal 20.5-60.0 [facility] Comment on above: Performed By: #### P REGQNT #### [facility] [address] [place] [address] Dr. Katty Gutierrez MANUAL DIFF REQ NO Normal [facility] Comment on above: Performed By: #### P REGQNT #### [facility] [address] [place] [address] Dr. Katty Gutierrez MCH (RBC) [Entitic mass] 30.4 pg Normal 26.7-34.0 [facility] Comment on above: Performed By: #### P REGQNT #### [facility] [address] [place] [address] Dr. Katty Gutierrez MCHC (RBC) [Mass/Vol] 34.8 g/dL Normal 29.9-35.2 [facility] Comment on above: Performed By: #### P REGQNT #### [facility] [address] [place] [address] Dr. Katty Gutierrez MCV (RBC) [Entitic vol] 87.3 fL Normal 81.0-99.0 [facility] Comment on above: Performed By: #### P REGQNT #### [facility] [address] [place] [address] Dr. Katty Gutierrez MONO # 0.7 103/ul Normal 0.3-0.8 [facility] Comment on above: Performed By: #### P REGQNT #### [facility] [address] [place] [address] Dr. Katty Gutierrez Monocytes/100 WBC (Bld) 8.2 % Normal 1.7-12.0 [facility] Comment on above: Performed By: #### P REGQNT #### [facility] [address] [place] [address] Dr. Katty Gutierrez NEUT # 5.0 103/ul Normal 1.4-6.5 [facility] Comment on above: Performed By: #### P REGQNT #### [facility] [address] [place] [address] Dr. Katty Gutierrez Neutrophils/100 WBC (Bld) 61.0 % Normal 43.0-75.0 [facility] Comment on above: Performed By: #### P REGQNT #### [facility] [address] [place] [address] Dr. Katty Gutierrez Platelet mean volume (Bld) [Entitic vol] 9.8 fL Normal 9.5-13.5 [facility] Comment on above: Performed By: #### P REGQNT #### [facility] [address] [place] [address] Dr. Katty Gutierrez PLT 321 103/ul Normal 150-450 [facility] Comment on above: Performed By: #### P REGQNT #### [facility] [address] [place] [address] Dr. Katty Gutierrez RBC 4.48 106/ul Normal 4.20-5.40 [facility] Comment on above: Performed By: #### P REGQNT #### [facility] [address] [place] [address] Dr. Katty Gutierrez WBC 8.3 103/ul Normal 4.0-11.0 [facility] Comment on above: Performed By: #### P REGQNT #### [facility] [address] [place] [address] Dr. Katty Gutierrez LIVER PROFILEon 01-05-2023 Albumin [Mass/Vol] 4.1 g/dL Normal 3.4-5.0 [facility] Comment on above: Performed By: #### B MP, LIVER #### [facility] [address] [place] [address] Dr. Katty Gutierrez Albumin/Globulin [Mass ratio] 1.3 {ratio} Normal [facility] Comment on above: Performed By: #### B MP, LIVER #### [facility] [address] [place] [address] Dr. Katty Gutierrez ALP [Catalytic activity/Vol] 91 U/L Normal 46-116 [facility] Comment on above: Performed By: #### B MP, LIVER #### [facility] [address] [place] [address] Dr. Katty Gutierrez ALT [Catalytic activity/Vol] 41 U/L Normal 14-59 [facility] Comment on above: Performed By: #### B MP, LIVER #### [facility] [address] [place] [address] Dr. Katty Gutierrez AST [Catalytic activity/Vol] 18 U/L Normal 15-37 [facility] Comment on above: Performed By: #### B MP, LIVER #### [facility] [address] [place] [address] Dr. Katty Gutierrez BILI, CONJUGATED 0.1 mg/dL Normal 0.0-0.2 [facility] Comment on above: Performed By: #### B MP, LIVER #### [facility] [address] [place] [address] Dr. Katty Gutierrez Bilirubin [Mass/Vol] 0.6 mg/dL Normal 0.2-1.0 [facility] Comment on above: Performed By: #### B MP, LIVER #### [facility] [address] [place] [address] Dr. Katty Gutierrez Globulin (S) [Mass/Vol] 3.1 g/dL Normal [facility] Comment on above: Performed By: #### B MP, LIVER #### [facility] [address] [place] [address] Dr. Katty Gutierrez Protein [Mass/Vol] 7.2 g/dL Normal 6.4-8.2 [facility] Comment on above: Performed By: #### B MP, LIVER #### [facility] [address] [place] [address] Dr. Katty Gutierrez PROF CHEM 8 (BAS METB)on Anion gap [Moles/Vol] 13.0 mmol/L Normal [facility] Comment on above: Performed By: #### B MP, LIVER #### [facility] [address] [place] [address] Dr. Katty Gutierrez Calcium [Mass/Vol] 9.2 mg/dL Normal 8.5-10.1 [facility] Comment on above: Performed By: #### B MP, LIVER #### [facility] [address] [place] [address] Dr. Katty Gutierrez Chloride [Moles/Vol] 105 mmol/L Normal 98-107 [facility] Comment on above: Performed By: #### B MP, LIVER #### [facility] [address] [address] [address] Katty Gutierrez CO2 [Moles/Vol] 25.0 mmol/L Normal 21.0-32.0 [facility] Comment on above: Performed By: #### B MP, LIVER #### [facility] [address] [address] [address] Katty Gutierrez Creatinine [Mass/Vol] 0.84 mg/dL Normal 0.55-1.02 [facility] Comment on above: Performed By: #### B MP, LIVER #### [facility] [address] [place] [address] Dr. Katty Gutierrez EGFR-AF SENEGALESE >60 Normal >=60 [facility] Comment on above: Performed By: #### B MP, LIVER #### [facility] [address] [place] [address] Dr. Katty Gutierrez EGFR-NON AF SENEGALESE >60 Normal >=60 [facility] Comment on above: Performed By: #### B MP, LIVER #### [facility] [address] [place] [address] Dr. Katty Gutierrez Glucose [Mass/Vol] 121 mg/dL Critically high 74-106 [facility] Comment on above: Performed By: #### B MP, LIVER #### [facility] [address] [place] [address] Dr. Katty Gutierrez Potassium [Moles/Vol] 4.0 mmol/L Normal 3.5-5.1 [facility] Comment on above: Performed By: #### B MP, LIVER #### [facility] [address] [address] [address] Katty Gutierrez Sodium [Moles/Vol] 139 mmol/L Normal 136-145 [facility] Comment on above: Performed By: #### B MP, LIVER #### [facility] [address] [place] [address] Dr. Katty Gutierrez Urea nitrogen [Mass/Vol] 13.0 mg/dL Normal 7.0-18.0 [facility] Comment on above: Performed By: #### B MP, LIVER #### [facility] [address] [place] [address] Dr. Katty Gutierrez Urea nitrogen/Creatinine [Mass ratio] 15.5 mg/mg Normal [facility] Comment on above: Performed By: #### B MP, LIVER #### [facility] [address] [place] [address] Dr. Katty Gutierrez PROTIMEon 01-05-2023 INR Coag (PPP) [Relative time] 0.96 {INR} Normal [facility] Comment on above: Performed By: #### P T, PTT #### [facility] [address] [place] [address] Dr. Katty Gutierrez INR GUIDELINES SEE BELOW Normal [facility] Comment on above: Result Comment: RICARDA RED INR: 2.0 - 3.0 CONDITIONS NOT LISTED BELOW 2.5 - 3.5 FOR PROSTHETIC HEART VALVE REPLACEMENT 2.5 - 3.5 RECURRENT THROMBOSIS Performed By: #### P T, PTT #### [facility] [address] [place] [address] Dr. Katty Gutierrez PT Coag (PPP) [Time] 10.2 s Normal 9.0-11.6 [facility] Comment on above: Performed By: #### P T, PTT #### [facility] [address] [place] [address] Dr. Katty Gutierrez PTTon 01-05-2023 aPTT Coag (Bld) [Time] 26.2 s Normal 22.3-36.2 [facility] Comment on above: Performed By: #### P T, PTT #### [facility] [address] [place] [address] Dr. Katty Gutierrez TYPE AND SCREENon 01-05-2023 TYPE AND SCREEN Negative Normal [facility] Comment on above: Performed By: #### B MP, LIVER #### [facility] [address] [place] [address] Dr. Katty Gutierrez CBC AUTO DIFFon 10-29-2022 BASO # 0.1 103/ul Normal 0.0-0.1 [facility] Comment on above: Performed By: #### C BC #### [facility] [address] [address] [address] Katty Gutierrez Basophils/100 WBC (Bld) 0.7 % Normal 0.2-2.0 [facility] Comment on above: Performed By: #### C BC #### [facility] [address] [address] [address] Katty Gutierrez EO # 0.3 103/ul Normal 0.0-0.7 [facility] Comment on above: Performed By: #### C BC #### [facility] [address] [address] [address] Katty Gutierrez Eosinophils/100 WBC (Bld) 3.2 % Normal 0.9-7.0 [facility] Comment on above: Performed By: #### C BC #### [facility] [address] [place] [address] Dr. Katty Gutierrez Erythrocyte distribution width (RBC) [Ratio] 12.4 % Normal 11.0-15.0 [facility] Comment on above: Performed By: #### C BC #### [facility] [address] [place] [address] Dr. Katty Gutierrez Hematocrit (Bld) [Volume fraction] 42.7 % Normal 36.0-48.0 [facility] Comment on above: Performed By: #### C BC #### [facility] [address] [place] [address] Dr. Katty Gutierrez Hemoglobin (Bld) [Mass/Vol] 14.3 g/dL Normal 12.0-16.0 [facility] Comment on above: Performed By: #### C BC #### [facility] [address] [place] [address] Dr. Katty Gutierrez IG # 0.04 10e3/ul Critically high 0.00-0.[address] [facility] Comment on above: Performed By: #### C BC #### [facility] [address] [address] [address] Katty Gutierrez IG % 0.4 % Normal 0.0-0.5 [facility] Comment on above: Performed By: #### C BC #### [facility] [address] [place] [address] Dr. Katty Gutierrez LYMPH # 2.5 103/ul Normal 1.2-3.8 [facility] Comment on above: Performed By: #### C BC #### [facility] [address] [place] [address] Dr. Katty Gutierrez Lymphocytes/100 WBC (Bld) 24.7 % Normal 20.5-60.0 [facility] Comment on above: Performed By: #### C BC #### [facility] [address] [place] [address] Dr. Katty Gutierrez MANUAL DIFF REQ NO Normal [facility] Comment on above: Performed By: #### C BC #### [facility] [address] [place] [address] Dr. Katty Gutierrez MCH (RBC) [Entitic mass] 30.0 pg Normal 26.7-34.0 [facility] Comment on above: Performed By: #### C BC #### [facility] [address] [place] [address] Dr. Katty Gutierrez MCHC (RBC) [Mass/Vol] 33.5 g/dL Normal 29.9-35.2 [facility] Comment on above: Performed By: #### C BC #### [facility] [address] [place] [address] Dr. Katty Gutierrez MCV (RBC) [Entitic vol] 89.7 fL Normal 81.0-99.0 [facility] Comment on above: Performed By: #### C BC #### [facility] [address] [place] [address] Dr. Katty Gutierrez MONO # 0.7 103/ul Normal 0.3-0.8 [facility] Comment on above: Performed By: #### C BC #### [facility] [address] [place] [address] Dr. Katty Gutierrez Monocytes/100 WBC (Bld) 7.0 % Normal 1.7-12.0 [facility] Comment on above: Performed By: #### C BC #### [facility] [address] [place] [address] Dr. Katty Gutierrez NEUT # 6.5 103/ul Normal 1.4-6.5 [facility] Comment on above: Performed By: #### C BC #### [facility] [address] [place] [address] Dr. Katty Gutierrez Neutrophils/100 WBC (Bld) 64.0 % Normal 43.0-75.0 [facility] Comment on above: Performed By: #### C BC #### [facility] [address] [place] [address] Dr. Katty Gutierrez Platelet mean volume (Bld) [Entitic vol] 9.5 fL Normal 9.5-13.5 [facility] Comment on above: Performed By: #### C BC #### [facility] [address] [place] [address] Dr. Katty Gutierrez PLT 363 103/ul Normal 150-450 [facility] Comment on above: Performed By: #### C BC #### [facility] [address] [place] [address] Dr. Katty Gutierrez RBC 4.76 106/ul Normal 4.20-5.40 [facility] Comment on above: Performed By: #### C BC #### [facility] [address] [place] [address] Dr. Katty Gutierrez WBC 10.1 103/ul Normal 4.0-11.0 [facility] Comment on above: Performed By: #### C BC #### [facility] [address] [place] [address] Dr. Katty Gutierrez FREE T4on 10-29-2022 Free T4 [Mass/Vol] 1.04 ng/dL Normal 0.76-1.46 [facility] Comment on above: Performed By: #### P REGQNT #### [facility] [address] [place] [address] Dr. Katty Gutierrez PREG QUANT HCGon 10-29-2022 HCG QUANT <1 Normal [facility] Comment on above: Performed By: #### P REGQNT, TSH #### [facility] [address] [place] [address] Dr. Katty Gutierrez HCG RANGE SEE BELOW Normal [facility] Comment on above: Result Comment: 5-50 0.2-1 WEEK 50-500 1-2 WEEKS 100-5,000 2-3 WEEKS 500-10,000 3-4 WEEKS 1,000-50,000 4-5 WEEKS 10,000-100,000 5-6 WEEKS 15,000-200,000 6-8 WEEKS 10,000-100,000 2-3 MONTHS Performed By: #### P REGQNT, TSH #### [facility] [address] [place] [address] Dr. Katty Gutierrez PROTIMEon 10-29-2022 INR Coag (PPP) [Relative time] 0.97 {INR} Normal [facility] Comment on above: Performed By: #### P REGQNT #### [facility] [address] [place] [address] Dr. Katty Gutierrez INR GUIDELINES SEE BELOW Normal [facility] Comment on above: Result Comment: RICARDA RED INR: 2.0 - 3.0 CONDITIONS NOT LISTED BELOW 2.5 - 3.5 FOR PROSTHETIC HEART VALVE REPLACEMENT 2.5 - 3.5 RECURRENT THROMBOSIS Performed By: #### P REGQNT #### [facility] [address] [place] [address] Dr. Katty Gutierrez PT Coag (PPP) [Time] 10.5 s Normal 9.0-11.6 [facility] Comment on above: Performed By: #### P REGQNT #### [facility] [address] [place] [address] Dr. Katty Gutierrez PTTon 10-29-2022 aPTT Coag (Bld) [Time] 26.7 s Normal 22.3-36.2 [facility] Comment on above: Performed By: #### P REGQNT #### [facility] [address] [place] [address] Dr. Katty Gutierrez TSHon 10-29-2022 TSH 1.956 uIU/mL Normal 0.358-3.740 [facility] [place] Comment on above: Performed By: #### P REGQNT, TSH #### [facility] [address] [address] [address] Katty Gutierrez US PELVIS AND TRANSVAGon [...] YAMILET SHAH Date: 2022-10-29 17:23 Normal [facility] BNPon 05-07-2022 Natriuretic peptide B (Bld) [Mass/Vol] 12.0 pg/mL Normal <=450.0 [facility] Comment on above: Performed By: #### P REGQNT #### [facility] [address] [place] [address] Dr. Katty Gutierrez CBC AUTO DIFFon 05-07-2022 BASO # 0.1 103/ul Normal 0.0-0.1 [facility] Comment on above: Performed By: #### P REGQNT #### [facility] [address] [place] [address] Dr. Katty Gutierrez Basophils/100 WBC (Bld) 0.6 % Normal 0.2-2.0 [facility] Comment on above: Performed By: #### P REGQNT #### [facility] [address] [place] [address] Dr. Katty Gutierrez EO # 0.3 103/ul Normal 0.0-0.7 [facility] Comment on above: Performed By: #### P REGQNT #### [facility] [address] [place] [address] Dr. Katty Gutierrez Eosinophils/100 WBC (Bld) 4.0 % Normal 0.9-7.0 [facility] Comment on above: Performed By: #### P REGQNT #### [facility] [address] [place] [address] Dr. Katty Gutierrez Erythrocyte distribution width (RBC) [Ratio] 12.7 % Normal 11.0-15.0 [facility] Comment on above: Performed By: #### P REGQNT #### [facility] [address] [place] [address] Dr. Katty Gutierrez Hematocrit (Bld) [Volume fraction] 40.6 % Normal 36.0-48.0 [facility] Comment on above: Performed By: #### P REGQNT #### [facility] [address] [place] [address] Dr. Katty Gutierrez Hemoglobin (Bld) [Mass/Vol] 13.5 g/dL Normal 12.0-16.0 [facility] Comment on above: Performed By: #### P REGQNT #### [facility] [address] [place] [address] Dr. Katty Gutierrez IG # 0.03 10e3/ul Normal 0.00-0.03 [facility] Comment on above: Performed By: #### P REGQNT #### [facility] [address] [place] [address] Dr. Katty Gutierrez IG % 0.4 % Normal 0.0-0.5 [facility] Comment on above: Performed By: #### P REGQNT #### [facility] [address] [place] [address] Dr. Katty Gutierrez LYMPH # 2.3 103/ul Normal 1.2-3.8 [facility] Comment on above: Performed By: #### P REGQNT #### [facility] [address] [address] [address] Katty Gutierrez Lymphocytes/100 WBC (Bld) 27.4 % Normal 20.5-60.0 [facility] Comment on above: Performed By: #### P REGQNT #### [facility] [address] [address] [address] Katty Gutierrez MANUAL DIFF REQ NO Normal [facility] Comment on above: Performed By: #### P REGQNT #### [facility] [address] [address] [address] Katty Gutierrez MCH (RBC) [Entitic mass] 29.9 pg Normal 26.7-34.0 [facility] Comment on above: Performed By: #### P REGQNT #### [facility] [address] [place] [address] Dr. Katty Gutierrez MCHC (RBC) [Mass/Vol] 33.3 g/dL Normal 29.9-35.2 [facility] Comment on above: Performed By: #### P REGQNT #### [facility] [address] [address] [address] Katty Gutierrez MCV (RBC) [Entitic vol] 90.0 fL Normal 81.0-99.0 [facility] Comment on above: Performed By: #### P REGQNT #### [facility] [address] [address] [address] Katty Gutierrez MONO # 0.6 103/ul Normal 0.3-0.8 [facility] Comment on above: Performed By: #### P REGQNT #### [facility] [address] [address] [address] Katty Gutierrez Monocytes/100 WBC (Bld) 7.2 % Normal 1.7-12.0 [facility] Comment on above: Performed By: #### P REGQNT #### [facility] [address] [place] [address] Dr. Katty Gutierrez NEUT # 5.1 103/ul Normal 1.4-6.5 [facility] Comment on above: Performed By: #### P REGQNT #### [facility] [address] [address] [address] Katty Gutierrez Neutrophils/100 WBC (Bld) 60.4 % Normal 43.0-75.0 [facility] Comment on above: Performed By: #### P REGQNT #### [facility] [address] [address] [address] Katty Gutierrez Platelet mean volume (Bld) [Entitic vol] 10.0 fL Normal 9.5-13.5 [facility] Comment on above: Performed By: #### P REGQNT #### [facility] [address] [address] [address] Katty Gutierrez PLT 319 103/ul Normal 150-450 [facility] Comment on above: Performed By: #### P REGQNT #### [facility] [address] [place] [address] Dr. Katty Gutierrez RBC 4.51 106/ul Normal 4.20-5.40 [facility] Comment on above: Performed By: #### P REGQNT #### [facility] [address] [address] [address] Katty Gutierrez WBC 8.5 103/ul Normal 4.0-11.0 [facility] Comment on above: Performed By: #### P REGQNT #### [facility] [address] [place] [address] Dr. Katty Gutierrez CTA CHEST WO W CONon 05-07-2 022 CTA CHEST WO W CON EXAMINATION: [...] by: CHAVEZ DAMIAN Date: 2022-05-07 12:19 Normal [facility] PROF CHEM 8 (BAS METB)on Anion gap [Moles/Vol] 14.9 mmol/L Normal [facility] Comment on above: Performed By: #### P REGQNT #### [facility] [address] [address] [address] Katty Gutierrez Calcium [Mass/Vol] 9.4 mg/dL Normal 8.5-10.1 [facility] Comment on above: Performed By: #### P REGQNT #### [facility] [address] [place] [address] Dr. Katty Gutierrez Chloride [Moles/Vol] 104 mmol/L Normal 98-107 [facility] Comment on above: Performed By: #### P REGQNT #### [facility] [address] [address] [address] Katty Gutierrez CO2 [Moles/Vol] 26.1 mmol/L Normal 21.0-32.0 [facility] Comment on above: Performed By: #### P REGQNT #### [facility] [address] [place] [address] Dr. Katty Gutierrez Creatinine [Mass/Vol] 0.96 mg/dL Normal 0.55-1.02 [facility] Comment on above: Performed By: #### P REGQNT #### [facility] [address] [address] [address] Katty Gutierrez EGFR-AF SENEGALESE >60 Normal >=60 [facility] Comment on above: Performed By: #### P REGQNT #### [facility] [address] [address] [address] Katty Gutierrez EGFR-NON AF SENEGALESE >60 Normal >=60 [facility] Comment on above: Performed By: #### P REGQNT #### [facility] [address] [address] [address] Katty Gutierrez Glucose [Mass/Vol] 104 mg/dL Normal 74-106 [facility] Comment on above: Performed By: #### P REGQNT #### [facility] [address] [address] [address] Katty Gutierrez Potassium [Moles/Vol] 4.0 mmol/L Normal 3.5-5.1 [facility] Comment on above: Performed By: #### P REGQNT #### [facility] [address] [address] [address] Katty Gutierrez Sodium [Moles/Vol] 141 mmol/L Normal 136-145 [facility] Comment on above: Performed By: #### P REGQNT #### [facility] [address] [address] [address] Katty Gutierrez Urea nitrogen [Mass/Vol] 8.0 mg/dL Normal 7.0-18.0 [facility] Comment on above: Performed By: #### P REGQNT #### [facility] [address] [address] [address] Katty Gutierrez Urea nitrogen/Creatinine [Mass ratio] 8.3 mg/mg Normal [facility] Comment on above: Performed By: #### P REGQNT #### [facility] [address] [address] [address] Katty Gutierrez TROPONIN, HIGH SENSITIVITYon 05-07-2022 HSTROP <4.0 Normal 4.0-51.3 [facility] Comment on above: Result Comment: CUT- OFF POINTS HAVE BEEN ESTABLISHED BASED ON THE FOURTH UNIVERSAL DEFINITIONS OF MYOCARDIAL INFARCTION. THE UPPER REFERENCE LIMIT (URL) OF TROPONIN, DEFINED THE 99TH PERCENTILE OF cTnI DISTRIBUTION IN A REFERENCE POPULATION, HAS BEEN CONFIRMED THE DECISION THRESHOLD FOR CO DIAGNOSIS. Performed By: #### P REGQNT #### [facility] [address] [address] [address] Katty Gutierrez Encounters Encounter Date Encounter Type Care Provider Facility Start: 01-20-2024 End: 01-20-2024 ambulatory VIRAJ WRIGHT Not Available Start: 01-11-2024 End: 01-11-2024 ambulatory VIRAJ ZALDIVARO Not Available Start: 01-12-2023 Encounter for prepro cedural cardiovascular examination VIRAJ ZALDIVARO [facility] Start: 01-08-2023 End: 01-09-2023 ambulatory VIRAJ ZALDIVARO Facility:[facility] Start: 01-05-2023 End: 01-06-2023 ambulatory VIRAJ ZALDIVARO Facility:[facility] Start: 01-05-2023 End: 01-06-2023 Encounter for preprocedural cardiovascular examination VIRAJ ZALDIVARO Facility:[facility] Start: 12-29-2022 Encounter for other preprocedural examination VIRAJ MATHIEU [facility] Start: 12-26-2022 End: 12-27-2022 ambulatory VIRAJ ZALDIVARO Facility:[facility] Start: 12-26-2022 End: 12-27-2022 Encounter for other preprocedural examination VIRAJ ZALDIVARO Facility:[facility] Start: 10-29-2022 End: 10-30-2022 ambulatory VIRAJ ZALDIVARO Facility:[facility] Start: 05-29-2022 ambulatory VIRAJ ZALDIVARO Facility:[facility] Start: 05-07-2022 End: 05-07-[address] TERRIE BE . Facility:[facility] Payers Date Payer Category Payer Unknown [id number] 2.16.84 [id number] 1987 Unknown [id number] 2.16.84 [id number] 1987 Unknown [id number] 2.16.84 [id number] 1987 Unknown [id number] 2.16.84 [id number] 1987 Unknown [id number] 2.16.84 [id number] 1987 Unknown [id number] .16.84 [id number] 1987 Unknown [id number] 2.16.84 [id number] 1987 Unknown [id number] 2.16.84 [id number] 1959 Private Health Insurance [id number] 1957 Self-pay Clinical Note 01-08-2023 Note Date & Type Note Facility 01-08-2023 Note OPERATIVE NOTE OPERATION DATE: 01/08/2023 PROCEDURE: Robotic assisted laparoscopic hysterectomy with bilateral salpingectomy with right oophorectomy. PREOPERATIVE DIAGNOSIS: Menorrhagia, dysmenorrhea, dyspareunia, pelvic pain. POSTOPERATIVE DIAGNOSIS: Menorrhagia, dysmenorrhea, dyspareunia, pelvic pain. ANESTHESIA: General. SURGEON: Viraj Wright D.O. VENDING MACHINE MECHANIC: AVTAR Gilbert URINE OUTPUT: Yellow and clear. [...] Anesthesia first. Patient tolerated procedure well [facility] Clinical Note 01-08-2023 Note Date & Type Note Facility 01-08-2023 Note OP Note OPERATION DATE: 01/08/2023 ADDENDUM: Please note that the patient had her right ovary removed. Please note that the vessel sealer was used to come across the infundibulopelvic ligament, down to the broad ligament. Otherwise, the note can stay the same. [facility] Summary Purpose Family History No Family History Records FoundNo Family History Records Found Advance Directives No Advanced Directives Records FoundNo Advanced Directives Records Found Additional Source Comments INFORMATION SOURCE (unrecogn ized section and content) DATE CREATED AUTHOR 02/18/2023 [facility] pital DATE CREATED AUTHOR AUTHOR'S ORGANIZ ATION 01/22/2024 [facility] FOR RECORDS PERTAINING TO PATIENTS WHO ARE [...] BE BASED ON THE PRIMARY CLINICAL RECORDS. [facility] [facility]. provides no warranty or guarantee of the accuracy or completeness of information in this document.
[2025-04-25 07:38] LABS: Hematocrit 40.6 % (36.0-48.0); Hemoglobin 13.8 g/dL (12.0-16.0); Immature Granulocytes Abs Auto 0.03 10^3/uL (0.00-0.03); Immature Granulocytes Pct Auto 0.4 % (0.0-0.5); Lymphocytes Absolute Auto 2.2 10^3/uL (1.2-3.8); Mean Corpuscular HGB Conc 34.0 g/dL (29.9-35.2); Mean Corpuscular Hemoglobin 30.9 pg (26.7-34.0); Mean Corpuscular Volume 91.0 fL (81.0-99.0); Platelet Count 265 10^3/uL (150-450); Red Blood Count 4.46 10^6/uL (4.20-5.40); White Blood Count 8.4 10^3/uL (4.0-11.0)
[2025-04-25 10:30] LABS: Iron 84.0 ug/dL (50.0-170.0)
[2025-04-25 10:54] LABS: Alanine Aminotransferase 31 U/L (14-59); Albumin Globulin Ratio 1.0; Albumin Level 3.5 g/dL (3.4-5.0); Alkaline Phosphatase 91 U/L (46-116); Anion Gap 14.8; Aspartate Amino Transferase 22 U/L (15-37); Blood Urea Nitrogen 11.0 mg/dL (7.0-18.0); Calcium 9.1 mg/dL (8.5-10.1); Carbon Dioxide 26.3 mmol/L (21.0-32.0); Chloride 104 mmol/L (98-107); Cholesterol 159 mg/dL (<=200); Estimated GFR (African America >60 (>=60 mL/min/1.73m^2); Estimated GFR (Non-African Ame >60 (>=60 mL/min/1.73m^2); Free T3 2.76 pg/mL (2.18-3.98); Globulin 3.4 g/dL; Glucose 102 mg/dL (74-106); HDL Cholesterol 39 mg/dL (40-60); Potassium 4.1 mmol/L (3.5-5.1); Sodium 141 mmol/L (136-145); Thyroid Stimulating Hormone 2.350 uIU/mL (0.358-3.740); Total Protein 6.9 g/dL (6.4-8.2); Triglycerides 192 mg/dL (<=150); VLDL CHOLESTEROL 38.4 mg/dL
== END 2025-04-25 07:19 | disposition home or self-care (01) ==
LOC: LAB 07:19
PROVIDERS: PCP Family Medicine; Visit Provider Family Medicine
DX: Z00.00 Encounter for general adult medical examination without abnormal findings (principal)
CPT/HCPCS: 36415; 80053; 80061; 83036; 83525; 83540; 84436; 84443; 84481; 85025

== ENCOUNTER 2025-05-07 18:10 | Emergency (ER) | payer OTHER, SELFPAY ==
--- OUTSIDE RECORDS SUMMARY | 2024-09-19 10:45 | XMS_ITS ---
Author Organization [facility] in [place] Address [address] [place] [address] Care Team Providers Care Music Publisher Name Role Phone Heriberto Wei Primary Care Provider REASON FOR VISIT Contact Dermatitis/ Non Resolving Encounters Encounter Location Date Provider Diagnosis [facility] [place] [address] [place] [address] 09/19/2024 Heriberto Wei Plan Of Treatment Next Appt Details Provider Name:Heriberto Wei, 08:30:00 AM, [address] [place], [address], Progress Notes * Bassam CANNONB:1985 ( 40 yo F)Acc No.[id number]:09/19/2024 UNLOCKED PROGRESS NOTE Progress Note Patient: Amy TOVAR [facility] Vince Wei [facility] Audi :1985 A ge:39 Y S ex:Female Date:09/19/2024 Address:[address] [id number] Subjective: * Chief Complaints: * 1 . Contact Dermatitis/ Non Resolving. * Medical History: Objective: * Vitals: Assessment: Plan: * Treatment: * * Electronic signature of Heriberto Wei MD, [id number] on 05/07/2025 at 06:14 PM EDT Sign off status: Pending Visit Status: C ANC (Cancelled) * Provider: Vince Wei ([facility])MD Date: 1 11/19/2023 Generated for Valentín johnston/Norman/Beto on: 0 05/07/2025 06:14 PM EDT
--- OUTSIDE RECORDS SUMMARY | 2025-04-24 07:15 | XMS_ITS ---
Author Organization [facility] in [place] Address [address] [place] [address] Care Team Providers Care Soft Sugar Cutter Name Role Phone Heriberto Wei Primary Care Provider Allergies No Known Allergies REASON FOR VISIT Presents to office alone for headaches, Would like yearly labs ordered Medications Medication SIG (Take, Route, Frequency, Duration) Notes Start Date End Date Status Triamcinolone Acetonide 0.1 % 1 application Externally Twice a day for 30 09/03/2023 Active Estradiol 0.5 MG 1 tablet Orally Once a day for 30 days Active Ubrelvy 50 MG 1 tablet as needed, may take second dose at least 2 hours after first dose up to 4 tablets per day as needed Orally Once a day Active Adipex-P 37.5 MG 1 tablet before haleigh kfast Orally Once a day 04/24/2025 Active Social History Tobacco Use: Social History Observation Description Date Details (start date - stop date) Never Smoker NA - NA Tobacco Use/Smoking Question Answer Notes Patient is a nonsmoker AUDIT-C (Standard) Question Answer Notes Did you have a drink containing alcohol in the p ast year? No Points 0 Interpretation Negative Problems Problem Type SNOMED Code ICD Code Onset Dates Problem Status W/U Status Risk Notes Problem Well adult (833652991) Well adult (Z00.00) Active confirmed Problem Migraine (67368407) Migraine (G43.909) Active confirmed Vital Signs Weight 316.4 lbs 04/24/2025 Height 72 in 04/24/2025 Blood pressure systolic 132 mm Hg 04/24/20 25 Blood pressure diastolic 96 mm Hg 025 BMI 42.91 kg/m2 04/24/2025 Encounters Encounter Location Date Provider Diagnosis [facility] [address] [place] [address] 04/24/2025 Heriberto Wei Well adult Z00.00 an d Migraine G43.909 Assessments Encounter Date Diagnosis (ICD Code) Assessment Notes Treatment Notes Treatment Clinical Notes Section Notes 04/24/2025 Well adult (ICD-10 - Z00.00) 04/24/2025 Migraine (ICD-10 - G43.909) failing treatment 0 needs MRI to rule out other migraine - heaache etiologies Plan Of Treatment Medication Medication Name Sig Start Date Stop Date Notes Adipex-P 37.5 MG 1 tablet before haleigh kfast Orally Once a day 04/24/2025 Treatment Notes Assessment Notes Migraine failing treatment 0 needs MRI to rule out other migraine - heaache etiologies Pending Test Test Name Order Date HEMOGLOBIN A1C (GLYCO) 04/24/2025 IRON, TOTAL 04/24/2025 LIPID PANEL (CHOL/TRIG/HDL/LDL) 04/24/20 25 Insulin Level 04/24/2025 MRI BRAIN WO CON 04/24/2025 THYROID PANEL (T4/TSH/FREE T3) 5 CMP (COMP MET [place]) w/eGFR CKD-EPI 2024 CBC WITH DIFF 04/24/2025 Next Appt Details Provider Name:Heriberto Wei, 08:30:00 AM, [address] [place], [address], Progress Notes * Isra CANNON:1985 ( 40 yo F)Acc No.[id number]:04/24/2025 Progress Note Patient: Amy TOVAR Provider: Vince Wei ([facility])MD :1985 A ge:40 Y S ex:Female Date:04/24/2025 Address:[facility] [address] [id number] Check In:10:58 AM ESTCheck O ut:12:00 PM EST Subjective: * Chief Complaints: * P resents to office alone for headachesWould like yearly labs ordered * HPI: D epression Screening: PHQ-2 (2015 Edition) L ittle interest or pleasure in doing things??Not at all F eeling down, depressed, or hopeless? N ot at all T otal Score 0 doisused headacehs getting more frequent again ubrelvy helps as preventive - QOD -. * Active Problem List R07.9 Chest pain Modified On:07/21/2023 Status:confirmed G43.909 Migraine headache Modified On:08/03/2023 Status:confirmed I10 Hypertension Modified On:10/30/2023 Status:confirmed R06.00 Dyspnea Modified On:07/21/2023 Status:confirmed E66.01 Morbid (severe) obes ity due to excess calories Modified On:07/02/2023 Status:confirmed Z68.41 Body mass index [BMI ] 40.0-44.9, adult Modified On:07/02/2023 Status:confirmed G89.29 Other chronic pain Modified On:07/02/2023 Status:confirmed E66.9 Obese Modified On:10/02/2023 Status:confirmed Z00.00 Well adult Modified On:04/24/2025 Status:confirmed G43.909 Migraine Modified On:04/24/2025 Status:confirmed * Medical History: * Surgical History: C HOLECYSTECTOMY 06/2016CESAREAN DELIVERY x2 Hysterectomy 01/08/2023 * Hospitalization/Major Diagno stic Procedure: * Family History: F ather: alive, diagnosed with Unspecified essential hypertension. M other: alive. B rother(s): alive, asthma. S ister(s): alive, asthma. S on(s): alive, asthma. D aughter(s): alive. 1 brother(s) , 1 sister(s) . 1 son(s) , 1 daughter(s) . . * Social History: T obacco Use: T obacco Use/Smoking P atient is a n onsmoker D rug/Alcohol: A NIKITA-C (Standard) D id you have a drink containing alcohol in the past year? N o P oints 0 I nterpretation N egative * Medications: T akingEstradiol 0.5 MG Tablet 1 tablet Orally Once a day Triamcinolone Acetonide 0.1 % Cream 1 application Externally Twice a day Ubrelvy(Ubrogepant) 50 MG Tablet 1 tablet as needed, may take second dose at least 2 hours after first dose up to 4 tablets per day as needed Orally Once a day Taking Estradiol 0.5 MG Tablet 1 tablet Orally Once a day Taking Triamcinolone Acetonide 0.1 % Cream 1 application Externally Twice a day Taking Ubrelvy(Ubrogepant) 50 MG Tablet 1 tablet as needed, may take second dose at least 2 hours after first dose up to 4 tablets per day as needed Orally Once a day DiscontinuedAdipex-P(Phentermine HCl) 37.5 MG Tablet 1 tablet before breakfast Orally Once a day Amoxicillin-Pot Clavulanate 875-125 MG Tablet 1 tablet Orally every 12 hrs Azithromycin 250 MG Tablet 2 tabs today then 1 tab Orally daily dexAMETHasone 6 MG Tablet 1 tablet Orally daily Medication List reviewed and reconciled with the patientDiscontinued Adipex-P(Phentermine HCl) 37.5 MG Tablet 1 tablet before breakfast Orally Once a day Discontinued Amoxicillin-Pot Clavulanate 875-125 MG Tablet 1 tablet Orally every 12 hrs Discontinued Azithromycin 250 MG Tablet 2 tabs today then 1 tab Orally daily Discontinued dexAMETHasone 6 MG Tablet 1 tablet Orally daily Medication List reviewed and reconciled with the patient * Allergies: N .K.D.A.no[Allergies Verified] Objective: * Vitals: W t:316.4lbs, Ht: 72 in, BP:132/96mm Hg, BMI:42.91Index, Ht-cm: 182.88 cm, Wt-k.52 kg. Assessment: * Assessment: 1. W ell adult - Z00.00 (Primary) 2 . M igraine - G43.909 Plan: * Treatment: 2. M igraine I maging: MRI BRAIN WO CON Notes: failing treatment 0 needs MRI to rule out other migraine - heaache etiologies * Procedure Codes: * Preventive Medicine: Screenings/Counseling: B NE ACTION PLAN Above Normal BMI Follow-up D ietary management education, guidance, and counseling See treatment section of progress note for complete details of management plan. * * Sign off status: Completed Visit Status: C HK (Check Out) true * Provider: Vince Wei ([facility])MD Date: 0 04/24/2025 Generated for Valentín johnston/Norman/eTransmitting on: 0 05/07/2025 06:14 PM EDT History and Physical Notes * HPI (History of Present Illness) Category Sub-Category Detail Notes Category Not es Depression Screening PHQ-2 (2015 Edition) Little interest or pleasure in doing things?: Not at all doisused headacehs getting more frequent again ubrelvy helps as preventive - QOD - Feeling down, depressed, or hopeless?: N ot at all Total Score: 0
--- OUTSIDE RECORDS SUMMARY | 2025-04-25 14:48 | XMS_ITS ---
Author Organization [facility] in [place] Address [address] [place] [address] Care Team Providers Care Raftsman Name Role Phone Heriberto Wei Primary Care Provider [phone] REASON FOR VISIT Lab Results Encounters Encounter Location Date Provider Diagnosis [facility] [address] [place] [address] 04/25/2025 Heriberto Wei Plan Of Treatment Next Appt Details Provider Name:Heriberto Lawson Eriberto, 08:30:00 AM, [address] [place], [address], Progress Notes * SHIV BassamB:1985 ( 40 yo F)Acc No.[id number]:04/25/2025 Patient: Amy TOVAR :1985 A ge:40 Y S ex:Female Address:[address] [place] [address] * true * Date: Generated for Printi ng/Faxing/eTransmitting on: 05/07/2025 06:14 PM EDT
[2025-05-07] VITALS (22 sets, daily range): BP systolic 123–184; BP diastolic 71–113; PULSE 69–100; TEMP 36.7; O2SAT 98–100; BMI 42.2
--- OUTSIDE RECORDS SUMMARY | 2025-05-07 18:14 | XMS_ITS | Encounter Summary ---
Author Organization [facility] Address [address] [place] [address] Care Team Providers Care Marketing Financial Analyst Name Role Phone Unavailable Primary Care Provider Unavailabl e Encounter Details Date Type Department Care Team (Late st Contact Info) Description 04/27/2025 Abstract [facility] [address] [place] [id number] Ronak Wright, DO [address] [place], [id number] Social History Tobacco Use Types Packs/Day Years Used Date Smoking Tobacco: Never Alcohol Use Standard Drinks/Week Comments Never 0 (1 standard drink = 0.6 oz pure alcohol) caffeine: 1 can pop occasionally Comments No Sex and Gender Information Value Date Recorded Sex Assigned at Not on file Legal Sex Female 7:25 PM EDT Gender Identity Not on file Sexual Orientation Not on file documented as of this encounter Plan of Treatment Not on file documented as of this encounter Visit Diagnoses Not on filedocumented in this encounter
--- OUTSIDE RECORDS SUMMARY | 2025-05-07 18:14 | XMS_ITS | Clinical Summary ---
Author Organization [facility] Address [address] [facility] [place] [address] Care Team Providers Care Chief Meteorologist Name Role Phone Unavailable Primary Care Provider Unavailabl e Allergies No known active allergies Medications Ubrogepant (Ubrelvy) 100 MG tabletIndication s: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, not intractable Take 1 tablet by mouth every other day 16 tablet 3 07/11/2024 Active estradiol (Estrace) 0.5 MG tabletIndication s:Hormone imbalance TAKE 1 TABLET (0.5 MG) BY MOUTH IN THE MORNING 30 tablet 3 01/09/2025 05/09/20 25 Active Encounters Date Type Department Care Team Description 04/27/2025 Abstract [facility] [address] [phone] Ronak Wright, DO 04/26/[address] [facility] [address] [place] [id number] Ronak Wright, DO 03/29/2025 Travel from Last 3 Months Family History Medical History Relation Name Comments Heart disease Father Hypertension Father Hypertension Maternal Grandfather Heart disease Maternal Grandmother Hypertension Maternal Grandmother Melanoma Mother Hypertension Paternal Grandfather Hypertension Paternal Grandmother Relation Name Status Comments Brother x1 Daughter Alive Father Alive Maternal Grandfather Maternal Grandmother Mother Alive Paternal Grandfather Paternal Grandmother Sister x1 Son Alive Social History Tobacco Use Types Packs/Day Years Used Date Smoking Tobacco: Never Tobacco Cessation:Counseling Given: Not Answered Alcohol Use Standard Drinks/Week Comments Never 0 (1 standard drink = 0.6 oz pure alcohol) caffeine: 1 can pop occasionally Comments No Sex and Gender Information Value Date Recorded Sex Assigned at Not on file Legal Sex Female 7:25 PM EDT Gender Identity Not on file Sexual Orientation Not on file Last Filed Vital Signs Vital Sign Reading Time Taken Comments Blood Pressure 118/80 01/20/2024 2:38 PM EDT Pulse - - Temperature - - Respiratory Rate - - Oxygen Saturation - - Inhaled Oxygen Concentration - - Weight 132 kg (291 lb 12.8 oz) 01/20/2024 2:38 P M EDT Height 182.9 cm (6') 01/11/2024 9:13 AM EDT Body Mass Index 39.58 01/11/2024 9:13 AM EDT Plan of Treatment Health Maintenance Due Date Last Done Comments HPV/Cotest 02/29/2020 Influenza Vaccine (#1) 2025 Cervical Cancer Screening 01/19/2027 Pap Smear 01/19/2027 01/20/2024, 01/11/2024, 05/0 03/2015 Procedures Procedure Name Priority Date/Time Associated Diagnosis Comments PAP SMEAR Routine 01/20/2024 2:40 PM EDT Well woman exam with routine gynecological exam from Last 3 Months or Most Recently Relevant to Health Maintenance Results * Pap Smear (01/20/2024 2:40 PM EDT) Swab Cervical swab / Unknown 01/20/2024 2:40 PM EDT us Ronak Adriana DO LAB CYTOLOGY ORDERABLES Final Re sult EXTERNAL LAB from Last 3 Months or Most Recently Relevant to Health Maintenance Insurance [employer]
--- OUTSIDE RECORDS SUMMARY | 2025-05-07 18:14 | XMS_ITS | Encounter Summary ---
Author Organization [facility] Address [address] [place] [address] Care Team Providers Care Smasher Hand Name Role Phone Unavailable Primary Care Provider Unavailabl e Encounter Details Date Type Department Care Team (Late st Contact Info) Description 04/26/2025 Telephone [facility] [address] [place] [id number] Ronak Wright, DO [address] [facility] [address] Rafaela Jackson, [facility]11 Social History Tobacco Use Types Packs/Day Years [...] on file documented as of this encounter Miscellaneous Notes * Telephone Encounter - Amy Amado LPN - 04/27/2025 8:21 AM EDT Prior Auth was completed on Cover mymeds awaiting response. * Telephone Encounter - Amy Amado LPN - 04/26/2025 12:59 PM EDT Hi, my name is Aly Cannon, I am calling from my Karen Cannon. Birthday [birth year]. Dr Wright gave a prescription for [employer] [facility] down in [place] is going to be sending another priorauthorization. They they said, just give you guys a call to let you know if that is what they are going to be doing. Any questions? Her phone number [phone] or - [phone]. Thank you. documented in this encounter Plan of Treatment Not on file documented as of this encounter Visit Diagnoses Not on filedocumented in this encounter
--- OUTSIDE RECORDS SUMMARY | 2025-05-07 18:14 | XMS_ITS | Patient Health Record ---
Author Organization [facility] in [place] Address [address] [place] [address] Care Team Providers Care Supervisor Instrument Repair Name Role Phone Heriberto Wei Primary Care Provider Allergies No Known Allergies Results Component Value Reference Range Notes CBC AUTO DIFF Reviewed date:04/25/2025 06:48:54 PM Interpretation: Performing Lab: Notes/Report: [facility] , White Blood Count 8.4 4.0-11.0 10 3/uL Red Blood Count 4.46 4.20-5.40 10 6/uL Hemoglobin 13.8 12.0-16.0 g/dL Hematocrit 40.6 36.0-48.0 % Mean Corpuscular Volume 91.0 81.0-99.0 fL Mean Corpuscular Hemoglobin 30.9 26.7-34.0 pg Mean Corpuscular HGB Conc 34.0 29.9-35.2 g/dL Red Cell Distribution Width 12.3 11.0-15.0 % Platelet Count 265 150-450 10 3/uL Mean Platelet Volume 9.8 9.5-13.5 fL Neutrophils Percent Auto 60.8 43.0-75.0 % Lymphocytes Percent Auto 26.4 20.5-60.0 % Monocytes Percent Auto 6.6 1.7-12.0 % Eosinophils Percent Auto 5.3 0.9-7.0 % Basophils Percent Auto 0.5 0.2-2.0 % Immature Granulocytes Pct Auto 0.4 0.0-0.5 % Neutrophils Absolute Auto 5.1 1.4-6.5 10 3/uL Lymphocytes Absolute Auto 2.2 1.2-3.8 10 3/uL Monocytes Absolute Auto 0.6 0.3-0.8 10 3/uL Eosinophils Absolute Auto 0.5 0.0-0.7 10 3/uL Basophils Absolute Auto 0.0 0.0-0.1 10 3/uL Immature Granulocytes Abs Auto 0.03 0.00-0.03 10 3/uL Performing Lab: see note - [facility] FREE T3 Reviewed date:04/25/2025 06:48:54 PM Interpretation: Performing Lab: Notes/Report: [facility] , Free T3 2.76 2.18-3.98 pg/mL Performing Lab: see note - [facility] GLYCOHEMOGLOBIN A1C Reviewed date:04/25/2025 06:48:54 PM Interpretation: Performing Lab: Notes/Report: [facility] , Glycohemoglobin A1C 5.7 4.5-6.2 % ADA RECOMMENDED LIMIT 4.0 - 6.0 ADA THERAPEUTIC TARGET < 7.0 ACTION SUGGESTED > 7.0 Estimated Average Glucose 117 Performing Lab: see note - [facility] INSULIN Reviewed date:04/26/2025 06:35:28 PM Interpretation: Performing Lab: Notes/Report: [facility] , Insulin 26.7 2.6-24.9 uIU/mL Performed at: - [facility] [address] [id number] Acid Polymerization Operator: Fabricio Espinal PhD, Phone: [phone] Performing Lab: see note - [facility] LB IRON Reviewed date:04/25/2025 06:48:54 PM Interpretation: Performing Lab: Notes/Report: [facility] , Iron 84.0 50.0-170.0 ug/dL Performing Lab: see note ML - [facility] LIPID PROFILE Reviewed date:04/25/2025 06:48:54 PM Interpretation: Performing Lab: Notes/Report: [facility] , Triglycerides 192 <=150 mg/dL Cholesterol 159 <=200 mg/dL HDL Cholesterol 39 40-60 mg/dL <40 mg/dl - HIGH CARDIOVASCULAR RISK > or =60 mg/dl - LOW CARDIOVASCULAR RISK LDL Cholesterol Calculated 82.0 160-189 mg/dl HIGH <100 mg/dl OPTIMAL >190 mg/dl VERY HIGH 100-129 mg/dl NEAR OR ABOVE OPTIMAL 130-159 mg/dl BORDERLINE HIGH VLDL CHOLESTEROL 38.4 Chol HDL Ratio 4.1 4.4 - 7.1 AVERAGE RISK 7.1 - 11.0 MODERATE RISK >11.0 HIGH RISK 3.3 - 4.4 LOW RISK Performing Lab: see note - [facility] LB PROF 14(COMP METB) Reviewed date:04/25/2025 06:48:54 PM Interpretation: Performing Lab: Notes/Report: [facility] , Sodium 141 136-145 mmol/L Potassium 4.1 3.5-5.1 mmol/L Chloride 104 98-107 mmol/L Carbon Dioxide 26.3 21.0-32.0 mmol/L Anion Gap 14.8 Glucose 102 74-106 mg/dL Blood Urea Nitrogen 11.0 7.0-18.0 mg/dL Creatinine 0.81 0.55-1.02 mg/dL Estimated GFR ( Gemini >60 >=60 mL/min/1.73m 2 Estimated GFR (Non- Dora >60 >=60 mL/min/1.73m 2 BUN Creatinine Ratio 13.6 Calcium 9.1 8.5-10.1 mg/dL Bilirubin Total 0.5 0.2-1.0 mg/dL Aspartate Amino Transferase 22 15-37 U/L Alanine Aminotransferase 31 14-59 U/L Alkaline Phosphatase 91 46-116 U/L Total Protein 6.9 6.4-8.2 g/dL Albumin Level 3.5 3.4-5.0 g/dL Globulin 3.4 Albumin Globulin Ratio 1.0 Performing Lab: see note ML - [facility] LB T4 Reviewed date:04/25/2025 06:48:54 PM Interpretation: Performing Lab: Notes/Report: [facility] , T4 Thyroxine 8.10 4.80-13.90 ug/dL Performing Lab: see note ML - [facility] LB TSH Reviewed date:04/25/2025 06:48:54 PM Interpretation: Performing Lab: Notes/Report: [facility] , Thyroid Stimulating Hormone 2.350 0.358-3.740 u IU/mL Performing Lab: see note - [facility] LB Reason For Referral No Information Medications Medication SIG (Take, Route, Frequency, Duration) Notes Start Date End Date Status Estradiol 0.5 MG 1 tablet Orally Once a day for 30 days Active Triamcinolone Acetonide 0.1 % 1 application Externally Twice a day for 30 09/03/2023 Active Ubrelvy 50 MG 1 tablet as [...] Question Answer Notes Patient is a nonsmoker Alcohol Screen (Audit-C) Question Answer Notes Did you have a drink containing alcohol in the p ast year? No Points 0 Interpretation Negative AUDIT-C (Standard) Question Answer Notes Did you have a drink containing alcohol in the p ast year? No Points 0 Interpretation Negative Problems Problem Type SNOMED Code ICD Code Onset Dates Problem Status W/U Status Risk Notes Problem [id number] Morbid (severe) obesity due to excess calories (E66.01) Active confirmed Problem 33721404 Other chronic pain (G89.29) Active confirmed Problem Chest pain (R07.9) Active confirmed Problem Migraine variant with headache (disorder) (131827411) Migraine headache (G43.909) Active confirmed Problem Hypertension (22976750) Hypertension (I10) Active confirmed Problem Dyspnea (R06.00) Active confirmed Problem Migraine (96591079) Migraine (G43.909) Active confirmed Problem Obese (148017000) Obese (E66.9) Active confirme d Problem Well adult (451121788) Well adult (Z00.00) Active confirmed Problem 908127871 Body mass index [BMI] 40.0-44.9, adult (Z68.41) Active confirmed Vital Signs Blood pressure diastolic 96 mm Hg 04/24/2025 Height 72 in 04/24/2025 Blood pressure systolic 132 mm Hg 04/24/2025 Weight 316.4 lbs 04/24/2025 BMI 42.91 kg/m2 04/24/2025 Encounters Encounter Location Date Provider Diagnosis [facility] [address] [place] [address] 04/24/2025 Heriberto Hoy Well adult Z00.00 an d Migraine G43.909 [facility] [address] [place] [address] 07/04/2024 Heriberto Wei [facility] [address] [place] [address] 07/04/2024 Heriberto Wei [facility] [address] [place] [address] 08/25/2024 Heriberto Wei Hypertension I10 [facility] [address] [place] [address] 04/25/2025 Heriberto Wei Assessments Encounter Date Diagnosis (ICD Code) Assessment Notes Treatment Notes Treatment Clinical Notes Section Notes 04/24/2025 Migraine (ICD-10 - G43.909) failing treatment 0 needs MRI to rule out other migraine - heaache etiologies 04/24/2025 Well adult (ICD-10 - Z00.00) 08/25/2024 Hypertension (ICD-10 - I10) Plan Of Treatment Pending Test Test Name Order Date CMP (COMPLETE METABOLIC PANEL) 3 HEMOGLOBIN A1C (GLYCO) 07/02/2023 HEMOGLOBIN A1C (GLYCO) 04/24/2025 IRON, TOTAL 04/24/2025 IRON, TOTAL 07/02/2023 LIPID PANEL (CHOL/TRIG/HDL/LDL) 07/02/20 23 LIPID PANEL (CHOL/TRIG/HDL/LDL) 04/24/20 25 CBC WITH DIFF 07/02/2023 VITAMIN D, 25 LEVEL (TOTAL) 07/02/2023 Insulin Level 07/02/2023 Insulin Level 04/24/2025 MRI BRAIN WO CON 04/24/2025 THYROID PANEL (T4/TSH/FREE T3) 5 THYROID PANEL (T4/TSH/FREE T3) 3 CMP (COMP MET [place]) w/eGFR CKD-EPI 2024 CBC WITH DIFF 04/24/2025 Next Appt Details Provider Name:Heriberto Wei, 08:30:00 AM, [address] [facility] [place], [address], Insurance Providers Payer Name Payer Address Payer Phone Subscriber Number Group Number Insured Name Patient Relationship to Insured Coverage Start Date Coverage End Date [facility] [address] [place] [phone] [id number] Amy Cannon Self - patient is the insured Medical (General) History Medical History History ICD Code Chest pain R07.9 Dyspnea R06.00 Hypertension I10 Migraine headache G43.909 Surgical History Surgery Date(Month/Year) CHOLECYSTECTOMY 06/2016 DELIVERY x2 Hysterectomy 01/08/2023
--- OUTSIDE RECORDS SUMMARY | 2025-05-07 18:15 | XMS_ITS | CCD ---
Author Organization [facility] Care Team Providers Care Slitter Processed Film Name Role Phone MATHIEU, VIRAJ Admitting Unavailable MATHIEU, VIRAJ Attending Unavailable HOY ., DR FALCON Primary Care Unavailable MATHIEU, VIRAJ Consulting Unavailable MATHIEU, VIRAJ Admitting Unavailable MATHIEU, VIRAJ Attending Unavailable HOY ., DR FALCON Primary Care Unavailable MATHIEU, VIRAJ Admitting Unavailable MATHIEU, VIRAJ Attending Unavailable HOY ., DR FALCON Primary Care Unavailable MATHIEU, VIRAJ Consulting Unavailable ALYSSA, DR YAMILET Rodríguez Consulting Unavailable MATHIEU, VIRAJ Admitting Unavailable MATHIEU, VIRAJ Attending Unavailable HOY ., DR FALCON Primary Care Unavailable MATHIEU, VIRAJ Consulting Unavailable UNIQUE FRASER Consulting Unavailable MILLY MACIAS Consulting Unavailable HOY ., DR FALCON Primary Care Unavailable CHRISTINE ., DR RASCON Admitting Unavailable HAY ., DR RASCON Attending Unavailable RUMNEY, DR CHAVEZ Hinson Consulting Unavailable HAY ., DR RASCON Consulting Unavailable MATHIEU, VIRAJ Admitting Unavailable MATHIEU, VIRAJ Attending Unavailable HOY ., DR FALCON Primary Care Unavailable MATHIEU, VIRAJ Attending Unavailable MATHIEU, VIRAJ Attending Unavailable Allergies Allergy Classification Reported Allergen(s) Allergy Type Date of Onset Reaction(s) Facility (1 source) Meperidine Drug Allergy 06-11-2013 [facility] Repository Problems Active Problems Problem Classification Problem [...] te Episodic/Chronic Other aftercare (1 source) 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 Katty Gutierrez CBC AUTO DIFFon 01-09-2023 BASO # 0.1 103/ul Normal 0.0-0.1 [facility] Comment on above: Performed By: #### B MP, LIVER #### [facility] [address] [place] [address] Dr. Katty Gutierrez Basophils/100 WBC (Bld) 0.4 % Normal 0.2-2.0 [facility] Comment on above: Performed By: #### B MP, LIVER #### [facility] [address] [place] [address] Dr. Katty Gutierrez EO # 0.1 103/ul Normal 0.0-0.7 [facility] Comment on above: Performed By: #### B MP, LIVER #### [facility] [address] [place] [address] Dr. Katty Gutierrez Eosinophils/100 WBC (Bld) 0.9 % Normal 0.9-7.0 [facility] Comment on above: Performed By: #### B MP, LIVER #### [facility] [address] [place] [address] Dr. Katty Gutierrez Erythrocyte distribution width (RBC) [Ratio] 12.5 % Normal 11.0-15.0 [facility] Comment on above: Performed By: #### B MP, LIVER #### [facility] [address] [place] [address] Dr. Katty Gutierrez Hematocrit (Bld) [Volume fraction] 33.2 % Critically low 36.0-48.0 [facility] Comment on above: Performed By: #### B MP, LIVER #### [facility] [address] [place] [address] Dr. Katty Gutierrez Hemoglobin (Bld) [Mass/Vol] 11.0 g/dL Critically low 12.0-16.0 [facility] Comment on above: Performed By: #### B MP, LIVER #### [facility] [address] [place] [address] Dr. Katty Gutierrez IG # 0.05 10e3/ul Critically high 0.00-0.03 [facility] Comment on above: Performed By: #### B MP, LIVER #### [facility] [address] [place] [address] Dr. Katty Gutierrez IG % 0.4 % Normal 0.0-0.5 [facility] Comment on above: Performed By: #### B MP, LIVER #### [facility] [address] [address] [address] Katty Gutierrez LYMPH # 1.4 103/ul Normal 1.2-3.8 [facility] Comment on above: Performed By: #### B MP, LIVER #### [facility] [address] [place] [address] Dr. Katty Gutierrez Lymphocytes/100 WBC (Bld) 10.5 % Critically low 20.5-60.0 [facility] Comment on above: Performed By: #### B MP, LIVER #### [facility] [address] [place] [address] Dr. Katty Gutierrez MANUAL DIFF REQ NO Normal [facility] Comment on above: Performed By: #### B MP, LIVER #### [facility] [address] [place] [address] Dr. Katty Gutierrez MCH (RBC) [Entitic mass] 29.8 pg Normal 26.7-34.0 [facility] Comment on above: Performed By: #### B MP, LIVER #### [facility] [address] [place] [address] Dr. Katty Gutierrez MCHC (RBC) [Mass/Vol] 33.1 g/dL Normal 29.9-35.2 [facility] Comment on above: Performed By: #### B MP, LIVER #### [facility] [address] [place] [address] Dr. Katty Gutierrez MCV (RBC) [Entitic vol] 90.0 fL Normal 81.0-99.0 [facility] Comment on above: Performed By: #### B MP, LIVER #### [facility] [address] [place] [address] Dr. Katty Gutierrez MONO # 1.0 103/ul Critically high 0.3-0.8 [facility] Comment on above: Performed By: #### B MP, LIVER #### [facility] [address] [place] [address] Dr. Katty Gutierrez Monocytes/100 WBC (Bld) 7.5 % Normal 1.7-12.0 [facility] Comment on above: Performed By: #### B MP, LIVER #### [facility] [address] [address] [address] Katty Gutierrez NEUT # 11.0 103/ul Critically high 1.4-6.5 [facility] Comment on above: Performed By: #### B MP, LIVER #### [facility] [address] [address] [address] Katty Gutierrez Neutrophils/100 WBC (Bld) 80.3 % Critically high 43.0-75.0 [facility] Comment on above: Performed By: #### B MP, LIVER #### [facility] [address] [address] [address] Katty Gutierrez Platelet mean volume (Bld) [Entitic vol] 10.4 fL Normal 9.5-13.5 [facility] Comment on above: Performed By: #### B MP, LIVER #### [facility] [address] [address] [address] Katty Gutierrez PLT 315 103/ul Normal 150-450 [facility] Comment on above: Performed By: #### B MP, LIVER #### [facility] [address] [address] [address] Katty Gutierrez RBC 3.69 106/ul Critically low 4.20-5.40 [facility] Comment on above: Performed By: #### B MP, LIVER #### [facility] [address] [address] [address] Katty Gutierrez WBC 13.7 103/ul Critically high 4.0-11.0 [facility] Comment on above: Performed By: #### B MP, LIVER #### [facility] [address] [place] [address] Dr. Katty Gutierrez CREATININEon 01-09-2023 Creatinine [Mass/Vol] 0.86 mg/dL Normal 0.55-1.02 [facility] Comment on above: Performed By: #### C THANIA, BUN #### [facility] [address] [place] [address] Dr. Katty Gutierrez EGFR-AF NIUEAN >60 Normal >=60 [facility] Comment on above: Performed By: #### C THANIA, BUN #### [facility] [address] [place] [address] Dr. Katty Gutierrez EGFR-NON AF NIUEAN >60 Normal >=60 [facility] Comment on above: Performed By: #### C THANIA, BUN #### [facility] [address] [place] [address] Dr. Katty Gutierrez PREG QUANT HCGon 01-08-2023 HCG QUANT 2 mIU/mL Normal [facility] Comment on above: Performed By: #### P REGQNT #### [facility] [address] [place] [address] Dr. Katty Gutierrez HCG RANGE SEE BELOW Normal [facility] Comment on above: Result Comment: 5-50 0.2-1 WEEK 50-500 1-2 WEEKS 100-5,000 2-3 WEEKS 500-10,000 3-4 WEEKS 1,000-50,000 4-5 WEEKS 10,000-100,000 5-6 WEEKS 15,000-200,000 6-8 WEEKS 10,000-100,000 2-3 MONTHS Performed By: #### P REGQNT #### [facility] [address] [place] [address] Dr. Katty Gutierrez CBC AUTO DIFFon 01-05-2023 BASO # 0.1 103/ul Normal 0.0-0.1 [facility] Comment on above: Performed By: #### P REGQNT #### [facility] [address] [place] [address] Dr. Katty Gutierrez Basophils/100 WBC (Bld) 0.7 % Normal 0.2-2.0 [facility] Comment on above: Performed By: #### P REGQNT #### [facility] [address] [place] [address] Dr. Katty Gutierrez EO # 0.4 103/ul Normal 0.0-0.7 [facility] Comment on above: Performed By: #### P REGQNT #### [facility] [address] [place] [address] Dr. Katty Gutierrez Eosinophils/100 WBC (Bld) 4.4 % Normal 0.9-7.0 [facility] Comment on above: Performed By: #### P REGQNT #### [facility] [address] [place] [address] Dr. Katty Gutierrez Erythrocyte distribution width (RBC) [Ratio] 12.5 % Normal 11.0-15.0 [facility] Comment on above: Performed By: #### P REGQNT #### [facility] [address] [place] [address] Dr. Katty Gutierrez Hematocrit (Bld) [Volume fraction] 39.1 % Normal 36.0-48.0 [facility] Comment on above: Performed By: #### P REGQNT #### [facility] [address] [place] [address] Dr. Katty Gutierrez Hemoglobin (Bld) [Mass/Vol] 13.6 g/dL Normal 12.0-16.0 [facility] Comment on above: Performed By: #### P REGQNT #### [facility] [address] [place] [address] Dr. Katty Gutierrez IG # 0.04 10e3/ul Critically high 0.00-0.03 [facility] Comment on above: Performed By: #### P REGQNT #### [facility] [address] [place] [address] Dr. Katty Gutierrez IG % 0.5 % Normal 0.0-0.5 [facility] Comment on above: Performed By: #### P REGQNT #### [facility] [address] [place] [address] Dr. Katty Gutierrez LYMPH # 2.1 103/ul Normal 1.2-3.8 [facility] Comment on above: Performed By: #### P REGQNT #### [facility] [address] [place] [address] Dr. Katty Gutierrez Lymphocytes/100 WBC (Bld) 25.2 % Normal 20.5-60.0 [facility] Comment on above: Performed By: #### P REGQNT #### [facility] [address] [place] [address] Dr. aKtty Gutierrez MANUAL DIFF REQ NO Normal [facility] Comment on above: Performed By: #### P REGQNT #### [facility] [address] [place] [address] Dr. Katty Gutierrez MCH (RBC) [Entitic mass] 30.4 pg Normal 26.7-34.0 [facility] Comment on above: Performed By: #### P REGQNT #### [facility] [address] [place] [address] Dr. Katty Gutierrez MCHC (RBC) [Mass/Vol] 34.8 g/dL Normal 29.9-35.2 [facility] Comment on above: Performed By: #### P REGQNT #### [facility] [address] [place] [address] Dr. Katty Gutierrez MCV (RBC) [Entitic vol] 87.3 fL Normal 81.0-99.0 [facility] Comment on above: Performed By: #### P REGQNT #### [facility] [address] [place] [address] Dr. aKtty Gutierrez MONO # 0.7 103/ul Normal 0.3-0.8 [facility] Comment on above: Performed By: #### P REGQNT #### [facility] [address] [place] [address] Dr. Katty Gutierrez Monocytes/100 WBC (Bld) 8.2 % Normal 1.7-12.0 [facility] Comment on above: Performed By: #### P REGQNT #### [facility] [address] [place] [address] Dr. Katty Gutierrez NEUT # 5.0 103/ul Normal 1.4-6.5 [facility] Comment on above: Performed By: #### P REGQNT #### [facility] [address] [place] [address] Dr. Katty Gutierrez Neutrophils/100 WBC (Bld) 61.0 % Normal 43.0-75.0 [facility] Comment on above: Performed By: #### P REGQNT #### [facility] [address] [place] [address] Dr. Katty Gutierrez Platelet mean volume (Bld) [Entitic vol] 9.8 fL Normal 9.5-13.5 [facility] Comment on above: Performed By: #### P REGQNT #### [facility] [address] [place] [address] Dr. Katty Gutierrez PLT 321 103/ul Normal 150-450 [facility] Comment on above: Performed By: #### P REGQNT #### [facility] [address] [place] [address] Dr. Katty Gutierrez RBC 4.48 106/ul Normal 4.20-5.40 [facility] Comment on above: Performed By: #### P REGQNT #### [facility] [address] [place] [address] Dr. Katty Gutierrez WBC 8.3 103/ul Normal 4.0-11.0 [facility] Comment on above: Performed By: #### P REGQNT #### [facility] [address] [place] [address] Dr. Katty Gutierrez LIVER PROFILEon 01-05-2023 Albumin [Mass/Vol] 4.1 g/dL Normal 3.4-5.0 [facility] Comment on above: Performed By: #### B MP, LIVER #### [facility] [address] [place] [address] Dr. Katty Gutierrez Albumin/Globulin [Mass ratio] 1.3 {ratio} Normal [facility] Comment on above: Performed By: #### B MP, LIVER #### [facility] [address] [place] [address] Dr. Katty Gutierrez ALP [Catalytic activity/Vol] 91 U/L Normal 46-116 [facility] Comment on above: Performed By: #### B MP, LIVER #### [facility] [address] [place] [address] Dr. Katty Gutierrez ALT [Catalytic activity/Vol] 41 U/L Normal 14-59 [facility] Comment on above: Performed By: #### B MP, LIVER #### [facility] [address] [place] [address] Dr. Katty Gutierrez AST [Catalytic activity/Vol] 18 U/L Normal 15-37 [facility] Comment on above: Performed By: #### B MP, LIVER #### [facility] [address] [place] [address] Dr. Katty Gutierrez BILI, CONJUGATED 0.1 mg/dL Normal 0.0-0.2 [facility] Comment on above: Performed By: #### B MP, LIVER #### [facility] [address] [place] [address] Dr. Katty Gutierrez Bilirubin [Mass/Vol] 0.6 mg/dL Normal 0.2-1.0 [facility] Comment on above: Performed By: #### B MP, LIVER #### [facility] [address] [place] [address] Dr. Katty Gutierrez Globulin (S) [Mass/Vol] 3.1 g/dL Normal [facility] Comment on above: Performed By: #### B MP, LIVER #### [facility] [address] [place] [address] Dr. Katty Gutierrez Protein [Mass/Vol] 7.2 g/dL Normal 6.4-8.2 [facility] Comment on above: Performed By: #### B MP, LIVER #### [facility] [address] [place] [address] Dr. Katty Gutierrez PROF CHEM 8 (BAS METB)on Anion gap [Moles/Vol] 13.0 mmol/L Normal [facility] Comment on above: Performed By: #### B MP, LIVER #### [facility] [address] [place] [address] Dr. Katty Gutierrez Calcium [Mass/Vol] 9.2 mg/dL Normal 8.5-10.1 [facility] Comment on above: Performed By: #### B MP, LIVER #### [facility] [address] [place] [address] Dr. Katty Gutierrez Chloride [Moles/Vol] 105 mmol/L Normal 98-107 [facility] Comment on above: Performed By: #### B MP, LIVER #### [facility] [address] [address] [address] Katty Gutierrez CO2 [Moles/Vol] 25.0 mmol/L Normal 21.0-32.0 [facility] Comment on above: Performed By: #### B MP, LIVER #### [facility] [address] [address] [address] Katty Gutierrez Creatinine [Mass/Vol] 0.84 mg/dL Normal 0.55-1.02 [facility] Comment on above: Performed By: #### B MP, LIVER #### [facility] [address] [place] [address] Dr. Katty Gutierrez EGFR-AF NIUEAN >60 Normal >=60 [facility] Comment on above: Performed By: #### B MP, LIVER #### [facility] [address] [place] [address] Dr. Katty Gutierrez EGFR-NON AF NIUEAN >60 Normal >=60 [facility] Comment on above: Performed By: #### B MP, LIVER #### [facility] [address] [place] [address] Dr. Katty Gutierrez Glucose [Mass/Vol] 121 mg/dL Critically high 74-106 [facility] Comment on above: Performed By: #### B MP, LIVER #### [facility] [address] [place] [address] Dr. Katty Gutierrez Potassium [Moles/Vol] 4.0 mmol/L Normal 3.5-5.1 [facility] Comment on above: Performed By: #### B MP, LIVER #### [facility] [address] [address] [address] Katty Gutierrez Sodium [Moles/Vol] 139 mmol/L Normal 136-145 [facility] Comment on above: Performed By: #### B MP, LIVER #### [facility] [address] [place] [address] Dr. Katty Gutierrez Urea nitrogen [Mass/Vol] 13.0 mg/dL Normal 7.0-18.0 [facility] Comment on above: Performed By: #### B MP, LIVER #### [facility] [address] [place] [address] Dr. Katty Gutierrez Urea nitrogen/Creatinine [Mass ratio] 15.5 mg/mg Normal [facility] Comment on above: Performed By: #### B MP, LIVER #### [facility] [address] [place] [address] Dr. Katty Gutierrez PROTIMEon 01-05-2023 INR Coag (PPP) [Relative time] 0.96 {INR} Normal [facility] Comment on above: Performed By: #### P T, PTT #### [facility] [address] [place] [address] Dr. Katty Gutierrez INR GUIDELINES SEE BELOW Normal [facility] Comment on above: Result Comment: RICARDA RED INR: 2.0 - 3.0 CONDITIONS NOT LISTED BELOW 2.5 - 3.5 FOR PROSTHETIC HEART VALVE REPLACEMENT 2.5 - 3.5 RECURRENT THROMBOSIS Performed By: #### P T, PTT #### [facility] [address] [place] [address] Dr. Katty Gutierrez PT Coag (PPP) [Time] 10.2 s Normal 9.0-11.6 [facility] Comment on above: Performed By: #### P T, PTT #### [facility] [address] [place] [address] Dr. Katty Gutierrez PTTon 01-05-2023 aPTT Coag (Bld) [Time] 26.2 s Normal 22.3-36.2 [facility] Comment on above: Performed By: #### P T, PTT #### [facility] [address] [place] [address] Dr. Katty Gutierrez TYPE AND SCREENon 01-05-2023 TYPE AND SCREEN Negative Normal [facility] Comment on above: Performed By: #### B MP, LIVER #### [facility] [address] [place] [address] Dr. Katty Gutierrez CBC AUTO DIFFon 10-29-2022 BASO # 0.1 103/ul Normal 0.0-0.1 [facility] Comment on above: Performed By: #### C BC #### [facility] [address] [address] [address] Katty Gutierrez Basophils/100 WBC (Bld) 0.7 % Normal 0.2-2.0 [facility] Comment on above: Performed By: #### C BC #### [facility] [address] [address] [address] Katty Gutierrez EO # 0.3 103/ul Normal 0.0-0.7 [facility] Comment on above: Performed By: #### C BC #### [facility] [address] [address] [address] Katty Gutierrez Eosinophils/100 WBC (Bld) 3.2 % Normal 0.9-7.0 [facility] Comment on above: Performed By: #### C BC #### [facility] [address] [place] [address] Dr. Katty Gutierrez Erythrocyte distribution width (RBC) [Ratio] 12.4 % Normal 11.0-15.0 [facility] Comment on above: Performed By: #### C BC #### [facility] [address] [place] [address] Dr. Katty Gutierrez Hematocrit (Bld) [Volume fraction] 42.7 % Normal 36.0-48.0 [facility] Comment on above: Performed By: #### C BC #### [facility] [address] [place] [address] Dr. Katty Gutierrez Hemoglobin (Bld) [Mass/Vol] 14.3 g/dL Normal 12.0-16.0 [facility] Comment on above: Performed By: #### C BC #### [facility] [address] [place] [address] Dr. Katty Gutiererz IG # 0.04 10e3/ul Critically high 0.00-0.03 [facility] Comment on above: Performed By: #### C BC #### [facility] [address] [address] [address] Katty Gutierrez IG % 0.4 % Normal 0.0-0.5 [facility] Comment on above: Performed By: #### C BC #### [facility] [address] [place] [address] Dr. Katty Gutierrez LYMPH # 2.5 103/ul Normal 1.2-3.8 [facility] Comment on above: Performed By: #### C BC #### [facility] [address] [place] [address] Dr. Katty Gutierrez Lymphocytes/100 WBC (Bld) 24.7 % Normal 20.5-60.0 [facility] Comment on above: Performed By: #### C BC #### [facility] [address] [place] [address] Dr. Katty Gutiererz MANUAL DIFF REQ NO Normal [facility] Comment on above: Performed By: #### C BC #### [facility] [address] [place] [address] Dr. Ktaty Gutierrez MCH (RBC) [Entitic mass] 30.0 pg Normal 26.7-34.0 [facility] Comment on above: Performed By: #### C BC #### [facility] [address] [place] [address] Dr. Katty Gutierrez MCHC (RBC) [Mass/Vol] 33.5 g/dL Normal 29.9-35.2 [facility] Comment on above: Performed By: #### C BC #### [facility] [address] [place] [address] Dr. Katty Gutierrez MCV (RBC) [Entitic vol] 89.7 fL Normal 81.0-99.0 [facility] Comment on above: Performed By: #### C BC #### [facility] [address] [place] [address] Dr. Katty Gutierrez MONO # 0.7 103/ul Normal 0.3-0.8 [facility] Comment on above: Performed By: #### C BC #### [facility] [address] [place] [address] Dr. Katty Gutierrez Monocytes/100 WBC (Bld) 7.0 % Normal 1.7-12.0 [facility] Comment on above: Performed By: #### C BC #### [facility] [address] [place] [address] Dr. Katty Gutierrez NEUT # 6.5 103/ul Normal 1.4-6.5 [facility] Comment on above: Performed By: #### C BC #### [facility] [address] [place] [address] Dr. Katty Gutierrez Neutrophils/100 WBC (Bld) 64.0 % Normal 43.0-75.0 [facility] Comment on above: Performed By: #### C BC #### [facility] [address] [place] [address] Dr. Katty Gutierrez Platelet mean volume (Bld) [Entitic vol] 9.5 fL Normal 9.5-13.5 [facility] Comment on above: Performed By: #### C BC #### [facility] [address] [place] [address] Dr. Katty Gutirerez PLT 363 103/ul Normal 150-450 [facility] Comment on above: Performed By: #### C BC #### [facility] [address] [place] [address] Dr. Katty Gutierrez RBC 4.76 106/ul Normal 4.20-5.40 [facility] Comment on above: Performed By: #### C BC #### [facility] [address] [place] [address] Dr. Katty Gutierrez WBC 10.1 103/ul Normal 4.0-11.0 [facility] Comment on above: Performed By: #### C BC #### [facility] [address] [place] [address] Dr. Katty Gutierrez FREE T4on 10-29-2022 Free T4 [Mass/Vol] 1.04 ng/dL Normal 0.76-1.46 [facility] Comment on above: Performed By: #### P REGQNT #### [facility] [address] [place] [address] Dr. Katty Gutierrez PREG QUANT HCGon 10-29-2022 HCG QUANT <1 Normal [facility] Comment on above: Performed By: #### P REGQNT, TSH #### [facility] [address] [place] [address] Dr. Katty Gutierrez HCG RANGE SEE BELOW Normal [facility] Comment on above: Result Comment: 5-50 0.2-1 WEEK 50-500 1-2 WEEKS 100-5,000 2-3 WEEKS 500-10,000 3-4 WEEKS 1,000-50,000 4-5 WEEKS 10,000-100,000 5-6 WEEKS 15,000-200,000 6-8 WEEKS 10,000-100,000 2-3 MONTHS Performed By: #### P REGQNT, TSH #### [facility] [address] [place] [address] Dr. Katty Gutierrez PROTIMEon 10-29-2022 INR Coag (PPP) [Relative time] 0.97 {INR} Normal [facility] Comment on above: Performed By: #### P REGQNT #### [facility] [address] [place] [address] Dr. Katty Gutierrez INR GUIDELINES SEE BELOW Normal [facility] Comment on above: Result Comment: RICARDA RED INR: 2.0 - 3.0 CONDITIONS NOT LISTED BELOW 2.5 - 3.5 FOR PROSTHETIC HEART VALVE REPLACEMENT 2.5 - 3.5 RECURRENT THROMBOSIS Performed By: #### P REGQNT #### [facility] [address] [place] [address] Dr. Katty Gutierrez PT Coag (PPP) [Time] 10.5 s Normal 9.0-11.6 [facility] Comment on above: Performed By: #### P REGQNT #### [facility] [address] [place] [address] Dr. Katty Gutierrez PTTon 10-29-2022 aPTT Coag (Bld) [Time] 26.7 s Normal 22.3-36.2 [facility] Comment on above: Performed By: #### P REGQNT #### [facility] [address] [place] [address] Dr. Katty Gutierrez TSHon 10-29-2022 TSH 1.956 uIU/mL Normal 0.358-3.740 [facility] Comment on above: Performed By: #### P REGQNT, TSH #### [facility] [address] [address] [address] Katty Gutierrez US PELVIS AND TRANSVAGon [...] YAMILET SHAH Date: 2022-10-29 17:23 Normal [facility] BNPon 05-07-2022 Natriuretic peptide B (Bld) [Mass/Vol] 12.0 pg/mL Normal <=450.0 [facility] Comment on above: Performed By: #### P REGQNT #### [facility] [address] [place] [address] Dr. Katty Gutierrez CBC AUTO DIFFon 05-07-2022 BASO # 0.1 103/ul Normal 0.0-0.1 [facility] Comment on above: Performed By: #### P REGQNT #### [facility] [address] [place] [address] Dr. Katty Gutierrez Basophils/100 WBC (Bld) 0.6 % Normal 0.2-2.0 [facility] Comment on above: Performed By: #### P REGQNT #### [facility] [address] [place] [address] Dr. Katty Gutierrez EO # 0.3 103/ul Normal 0.0-0.7 [facility] Comment on above: Performed By: #### P REGQNT #### [facility] [address] [place] [address] Dr. Katty Gutierrez Eosinophils/100 WBC (Bld) 4.0 % Normal 0.9-7.0 [facility] Comment on above: Performed By: #### P REGQNT #### [facility] [address] [place] [address] Dr. Katty Gutierrez Erythrocyte distribution width (RBC) [Ratio] 12.7 % Normal 11.0-15.0 [facility] Comment on above: Performed By: #### P REGQNT #### [facility] [address] [place] [address] Dr. Katty Gutierrez Hematocrit (Bld) [Volume fraction] 40.6 % Normal 36.0-48.0 [facility] Comment on above: Performed By: #### P REGQNT #### [facility] [address] [place] [address] Dr. Katty Gutierrez Hemoglobin (Bld) [Mass/Vol] 13.5 g/dL Normal 12.0-16.0 [facility] Comment on above: Performed By: #### P REGQNT #### [facility] [address] [place] [address] Dr. Katty Gutierrez IG # 0.03 10e3/ul Normal 0.00-0.03 [facility] Comment on above: Performed By: #### P REGQNT #### [facility] [address] [place] [address] Dr. Katty Gutierrez IG % 0.4 % Normal 0.0-0.5 [facility] Comment on above: Performed By: #### P REGQNT #### [facility] [address] [place] [address] Dr. Katty Gutierrez LYMPH # 2.3 103/ul Normal 1.2-3.8 [facility] Comment on above: Performed By: #### P REGQNT #### [facility] [address] [address] [address] Katty Gutierrez Lymphocytes/100 WBC (Bld) 27.4 % Normal 20.5-60.0 [facility] Comment on above: Performed By: #### P REGQNT #### [facility] [address] [address] [address] Katty Gutierrez MANUAL DIFF REQ NO Normal [facility] Comment on above: Performed By: #### P REGQNT #### [facility] [address] [address] [address] Katty Gutierrez MCH (RBC) [Entitic mass] 29.9 pg Normal 26.7-34.0 [facility] Comment on above: Performed By: #### P REGQNT #### [facility] [address] [place] [address] Dr. Katty Gutierrez MCHC (RBC) [Mass/Vol] 33.3 g/dL Normal 29.9-35.2 [facility] Comment on above: Performed By: #### P REGQNT #### [facility] [address] [address] [address] Katty Gutierrez MCV (RBC) [Entitic vol] 90.0 fL Normal 81.0-99.0 [facility] Comment on above: Performed By: #### P REGQNT #### [facility] [address] [address] [address] Katty Gutierrez MONO # 0.6 103/ul Normal 0.3-0.8 [facility] Comment on above: Performed By: #### P REGQNT #### [facility] [address] [address] [address] Katty Gutierrez Monocytes/100 WBC (Bld) 7.2 % Normal 1.7-12.0 [facility] Comment on above: Performed By: #### P REGQNT #### [facility] [address] [place] [address] Dr. Katty Gutierrez NEUT # 5.1 103/ul Normal 1.4-6.5 [facility] Comment on above: Performed By: #### P REGQNT #### [facility] [address] [address] [address] Katty Gutierrez Neutrophils/100 WBC (Bld) 60.4 % Normal 43.0-75.0 [facility] Comment on above: Performed By: #### P REGQNT #### [facility] [address] [address] [address] Katty Gutierrez Platelet mean volume (Bld) [Entitic vol] 10.0 fL Normal 9.5-13.5 [facility] Comment on above: Performed By: #### P REGQNT #### [facility] [address] [address] [address] Katty Gutierrez PLT 319 103/ul Normal 150-450 [facility] Comment on above: Performed By: #### P REGQNT #### [facility] [address] [place] [address] Dr. Katty Gutierrez RBC 4.51 106/ul Normal 4.20-5.40 [facility] Comment on above: Performed By: #### P REGQNT #### [facility] [address] [address] [address] Katty Gutierrez WBC 8.5 103/ul Normal 4.0-11.0 [facility] Comment on above: Performed By: #### P REGQNT #### [facility] [address] [place] [address] Dr. Katty Gutierrez CTA CHEST WO W [...] by: CHAVEZ DAMIAN Date: 2022-05-07 12:19 Normal [facility] PROF CHEM 8 (BAS METB)on Anion gap [Moles/Vol] 14.9 mmol/L Normal [facility] Comment on above: Performed By: #### P REGQNT #### [facility] [address] [address] [address] Katty Gutierrez Calcium [Mass/Vol] 9.4 mg/dL Normal 8.5-10.1 [facility] Comment on above: Performed By: #### P REGQNT #### [facility] [address] [place] [address] Dr. Katty Gutierrez Chloride [Moles/Vol] 104 mmol/L Normal 98-107 [facility] Comment on above: Performed By: #### P REGQNT #### [facility] [address] [address] [address] Katty Gutierrez CO2 [Moles/Vol] 26.1 mmol/L Normal 21.0-32.0 [facility] Comment on above: Performed By: #### P REGQNT #### [facility] [address] [place] [address] Dr. Katty Gutierrez Creatinine [Mass/Vol] 0.96 mg/dL Normal 0.55-1.02 [facility] Comment on above: Performed By: #### P REGQNT #### [facility] [address] [address] [address] Katty Gutierrez EGFR-AF NIUEAN >60 Normal >=60 [facility] Comment on above: Performed By: #### P REGQNT #### [facility] [address] [address] [address] Katty Gutierrez EGFR-NON AF NIUEAN >60 Normal >=60 [facility] Comment on above: Performed By: #### P REGQNT #### [facility] [address] [address] [address] Katty Gutierrez Glucose [Mass/Vol] 104 mg/dL Normal 74-106 [facility] Comment on above: Performed By: #### P REGQNT #### [facility] [address] [address] [address] Katty Gutierrez Potassium [Moles/Vol] 4.0 mmol/L Normal 3.5-5.1 [facility] Comment on above: Performed By: #### P REGQNT #### [facility] [address] [address] [address] Katty Gutierrez Sodium [Moles/Vol] 141 mmol/L Normal 136-145 [facility] Comment on above: Performed By: #### P REGQNT #### [facility] [address] [address] [address] Katty Gutierrez Urea nitrogen [Mass/Vol] 8.0 mg/dL Normal 7.0-18.0 [facility] Comment on above: Performed By: #### P REGQNT #### [facility] [address] [address] [address] Katty Gutierrez Urea nitrogen/Creatinine [Mass ratio] 8.3 mg/mg Normal [facility] Comment on above: Performed By: #### P REGQNT #### [facility] [address] [address] [address] Katty Gutierrez TROPONIN, HIGH SENSITIVITYon 05-07-2022 HSTROP <4.0 Normal 4.0-51.3 [facility] Comment on above: Result Comment: CUT- OFF POINTS HAVE BEEN ESTABLISHED BASED ON THE FOURTH UNIVERSAL DEFINITIONS OF MYOCARDIAL INFARCTION. THE UPPER REFERENCE LIMIT (URL) OF TROPONIN, DEFINED THE 99TH PERCENTILE OF cTnI DISTRIBUTION IN A REFERENCE POPULATION, HAS BEEN CONFIRMED THE DECISION THRESHOLD FOR [place] DIAGNOSIS. Performed By: #### P REGQNT #### [facility] [address] [address] [address] Katty Gutierrez Encounters Encounter Date Encounter Type Care Provider Facility Start: 01-20-2024 End: 01-20-2024 ambulatory VIRAJ WRIGHT Not Available Start: 01-11-2024 End: 01-11-2024 ambulatory VIRAJ ZALDIVARO Not Available Start: 01-12-2023 Encounter for prepro cedural cardiovascular examination VIRAJ ZALDIVARO [facility] Start: 01-08-2023 End: 01-09-2023 ambulatory VIRAJ ZALDIVARO Facility:[facility] Start: 01-05-2023 End: 01-06-2023 ambulatory VIRAJ ZALDIVARO Facility:[facility] Start: 01-05-2023 End: 01-06-2023 Encounter for preprocedural cardiovascular examination VIRAJ ZALDIVARO Facility:[facility] Start: 12-29-2022 Encounter for other preprocedural examination VIRAJ MATHIEU [facility] Start: 12-26-2022 End: 12-27-2022 ambulatory VIRAJ ZALDIVARO Facility:[facility] Start: 12-26-2022 End: 12-27-2022 Encounter for other preprocedural examination VIRAJ ZALDIVARO Facility:[facility] Start: 10-29-2022 End: 10-30-2022 ambulatory VIRAJ ZALDIVARO Facility:[facility] Start: 05-29-2022 ambulatory VIRAJ ZALDIVARO Facility:[facility] Start: 05-07-2022 End: 05-07-[address] TERRIE BE . Facility:[facility] Payers Date Payer Category Payer Unknown [id number] 2.16.84 [id number] 1985 Unknown [id number] 2.16.84 [id number] 1987 Unknown [id number] 2.16.84 [id number] 1987 Unknown [id number] 2.16.84 [id number] 1987 Unknown [id number] 2.16.84 [id number] 1987 Unknown [id number] .[id number] [id number] 1987 Unknown [id number] 2.16.84 [id number] 1987 Unknown [id number] 2.16.84 [id number] 1959 Private Health Insurance [id number] 1957 Self-pay Clinical Note 01-08-2023 Note Date & Type Note Facility 01-08-2023 Note OPERATIVE NOTE OPERATION DATE: 01/08/2023 PROCEDURE: Robotic assisted laparoscopic hysterectomy with bilateral salpingectomy with right oophorectomy. PREOPERATIVE DIAGNOSIS: Menorrhagia, dysmenorrhea, dyspareunia, pelvic pain. POSTOPERATIVE DIAGNOSIS: Menorrhagia, dysmenorrhea, dyspareunia, pelvic pain. ANESTHESIA: General. SURGEON: Viraj Wright D.O. [employer]GER: AVTAR Gilbert URINE OUTPUT: Yellow and clear. [...] Anesthesia first. Patient tolerated procedure well [facility] Clinical Note 01-08-2023 Note Date & Type Note Facility 01-08-2023 Note OP Note OPERATION DATE: 01/08/2023 ADDENDUM: Please note that the patient had her right ovary removed. Please note that the vessel sealer was used to come across the infundibulopelvic ligament, down to the broad ligament. Otherwise, the note can stay the same. [facility] Summary Purpose Family History No Family History Records FoundNo Family History Records Found Advance Directives No Advanced Directives Records FoundNo Advanced Directives Records Found Additional Source Comments INFORMATION SOURCE (unrecogn ized section and content) DATE CREATED AUTHOR 02/18/2023 [facility] DATE CREATED AUTHOR AUTHOR'S ORGANIZ ATION 01/22/2024 [facility] FOR RECORDS PERTAINING TO PATIENTS WHO [...] BE BASED ON THE PRIMARY CLINICAL RECORDS. [facility] [facility]. provides no warranty or guarantee of the accuracy or completeness of information in this document.
--- NOTE | 2025-05-07 19:15 | ECG_ITS ---
[facility] Test Date: 2025-05-07 Pat Name: CAROLINE CHANEY Department: Room: - Gender: Female [employer]: : 1985 Requested By: [id number] Order Number: [id number] Reading MD: CASSY MONTGOMERY Measurements Intervals [place] Rate: 75 P: 42 [place]: 134 QRS: 80 QRSD: 80 T: 37 QT: 372 QTc: 400 Interpretive Statements 1100 Sinus rhythm 9110 normal ECG Compared to ECG 05/07/2022 11:34:34 No significant changes Electronically Signed On 05-09-2025 16:37:36 EDT by CASSY MONTGOMERY
--- NOTE | 2025-05-07 19:24 | ED_ITS ---
HPI HPI - General Adult General Chief complaint: Chest Pain Stated complaint: HEAVINESS IN CHEST Time Seen by Provider: 05/07/25 19:14 Source: patient Mode of arrival: walk-in Limitations: no limitations History of Present Illness HPI narrative: The patient is a 40-year-old female who presents to the emergency department today for evaluation concerns for intermittent chest pressure. She endorses over the past week this is mostly been brought on by stress and feeling anxious. She reports the symptoms will last a few minutes before resolving on their own. She denies any shortness of breath. No dizziness or syncope. No abdominal pain or nausea/vomiting. She endorses she is on Ubrelvy for headaches and Adipex for weight loss and is concerned may be in any more action with these medications causing her symptoms. Related Data Home Medications ?Medication ?Instructions ?Recorded ?Confirmed estradiol 0.5 mg tablet mg 05/07/25 phentermine 37.5 mg tablet mg 05/07/25 ubrogepant 100 mg tablet (Ubrelvy) mg 05/07/25 Allergies Allergy/AdvReac Type Severity Reaction Status Date / Time No Known Drug Allergies Allergy Verified 05/07/25 18:27 Review of Systems ROS Status of ROS 10 or more systems reviewed and unremark able except as noted in history and below PFSH PFSH Social History Little interest or pleasure in doing things: not at all Feeling down, depressed, or hopeless: not at all Exam Narrative Exam Narrative: Constituational: Awake/ alert, no apparent distress, well hydrated HENMT: normocephalic, external ears normal, moist oral mucous membranes and oropharynx normal Eyes: EOMI and conjunctivae normal Neck: ROM intact Chest: inspection of chest normal Respiratory: Normal respiratory effort, clear to auscultation bilaterally Cardio: regular rate and regular rhythm GI: soft to palpation and non-tender Back: nontender MSK: ROM intact, +NVI Skin: no rashes or petechiae Neuro: no focal deficits Psych: mental status grossly normal Constitutional Vital Signs, click to edit/add: Last Vital Signs Temp 98.1 F 05/07/25 18:18 Pulse 100 H 05/07/25 18:18 Resp 16 05/07/25 18:18 BP 158/98 H 05/07/25 18:18 Pulse Ox 100 05/07/25 18:18 O2 Del Method Room Air 05/07/25 18:18 Course Vital Signs Vital signs: Vital Signs Temperature 98.1 F 05/07/25 18:18 Pulse Rate 100 H 05/07/25 18:18 Respiratory Rate 16 05/07/25 18:18 Blood Pressure 158/98 H 05/07/25 18:18 Pulse Oximetry 100 05/07/25 18:18 Oxygen Delivery Method Room Air 05/07/25 18:18 Temperature 98.1 F 05/07/25 18:18 Pulse Rate 100 H 05/07/25 18:18 Respiratory Rate 16 05/07/25 18:18 Blood Pressure 158/98 H 05/07/25 18:18 Pulse Oximetry 100 05/07/25 18:18 Oxygen Delivery Method Room Air 05/07/25 18:18 Medical Decision Making MDM Narrative Medical decision making narrative: Well-appearing 40-year-old female who presented to the emergency department today for evaluation of concerns for atypical chest pain with as sociated symptoms of feeling anxious. Initial examination vital signs overall stable. She is currently pain-free and has no complaints on arrival to the ER. She does not appear to be exhibiting any ischemic symptoms and additionally is euvolemic on exam. EKG without acute changes and troponin negative x 1. Labs stable as below. Chest x-ray without critical findings as interpreted by the ER. Low clinical suspicion for PE with negative Wells score. Discussed these findings with the patient including recommendations for supportive care. Advised on follow-up with patient's primary care provider for reevaluation. Discussed signs and symptoms of any worsening condition and when to consider reevaluation by the emergency department. Patient verbalized an understanding of this and is agreeable with the plan to be discharged home. Medical Records Medical records reviewed: Yes I reviewed the patient's medical records Lab Data Lab results reviewed: Yes I reviewed the patient's lab results Labs: Lab Results 05/07/25 Range/Units 19:40 WBC 9.2 (4.0-11.0) 10^3/uL RBC 4.25 (4.20-5.40) 10^6/uL Hgb 13.4 (12.0-16.0) g/dL Hct 38.8 (36.0-48.0) % MCV 91.3 (81.0-99.0) fL MCH 31.5 (26.7-34.0) pg MCHC 34.5 (29.9-35.2) g/dL RDW 12.3 (11.0-15.0) % Plt Count 279 (150-450) 10^3/uL MPV 10.2 (9.5-13.5) fL Neut % (Auto) 51.8 (43.0-75.0) % Lymph % (Auto) 37.2 (20.5-60.0) % [place] % (Auto) 5.9 (1.7-12.0) % Eos % (Auto) 4.2 (0.9-7.0) % Baso % (Auto) 0.7 (0.2-2.0) % Neut # (Auto) 4.8 (1.4-6.5) 10^3/uL Lymph # (Auto) 3.4 (1.2-3.8) 10^3/uL [place] # (Auto) 0.5 (0.3-0.8) 10^3/uL Eos # (Auto) 0.4 (0.0-0.7) 10^3/uL Baso # (Auto) 0.1 (0.0-0.1) 10^3/uL Abs Immat Gran (auto) 0.02 (0.00-0.03) 10^3/uL Imm/Tot Granulo (auto) 0.2 (0.0-0.5) % Sodium 140 (136-145) mmol/L Potassium 4.1 (3.5-5.1) mmol/L Chloride 102 (98-107) mmol/L Carbon Dioxide 28.5 (21.0-32.0) mmol/L Anion Gap 13.6 BUN 16.0 (7.0-18.0) mg/dL Creatinine 0.93 (0.55-1.02) mg/dL Est GFR ( Amer) >60 (>=60 mL/min/1.73m^2) Est GFR (Non-Af Amer) >60 (>=60 mL/min/1.73m^2) BUN/Creatinine Ratio 17.2 Glucose 102 (74-106) mg/dL Calcium 10.3 H (8.5-10.1) mg/dL Total Bilirubin 0.4 (0.2-1.0) mg/dL AST 24 (15-37) U/L ALT 34 (14-59) U/L Alkaline Phosphatase 98 (46-116) U/L Troponin I High Sens 4.3 (4.0-51.3) pg/mL Total Protein 7.2 (6.4-8.2) g/dL Albumin 3.9 (3.4-5.0) g/dL Globulin 3.3 g/dL Albumin/Globulin Ratio 1.2 Imaging Data Chest x-ray: Attestation: I personally reviewed and interpreted this imaging study as follows: My impression: Normal chest radiograph ECG Data Attestation: I personally reviewed and interpreted this ECG as follows: (SR with HR 75, no acute/ ischemic changes) Discharge Plan Discharge Chief Complaint: Chest Pain Clinical Impression: Atypical chest pain Patient Disposition: Home, Self-Care Prescriptions / Home Meds: No Action phentermine 37.5 mg tablet estradiol 0.5 mg tablet Ubrelvy 100 mg tablet Print Language: Uzbek Instructions: Noncardiac Chest Pain (ED) Additional Instructions: With your primary care provider for reevaluation as discussed. May return to the ER with any new or worsening symptoms/concerns. Referrals: Abdoulaye Wei MD [Primary Care Provider, Family Practice] - 1 week
[2025-05-07 19:59] LABS: Hematocrit 38.8 % (36.0-48.0); Hemoglobin 13.4 g/dL (12.0-16.0); Immature Granulocytes Abs Auto 0.02 10^3/uL (0.00-0.03); Immature Granulocytes Pct Auto 0.2 % (0.0-0.5); Lymphocytes Absolute Auto 3.4 10^3/uL (1.2-3.8); Mean Corpuscular HGB Conc 34.5 g/dL (29.9-35.2); Mean Corpuscular Hemoglobin 31.5 pg (26.7-34.0); Mean Corpuscular Volume 91.3 fL (81.0-99.0); Platelet Count 279 10^3/uL (150-450); Red Blood Count 4.25 10^6/uL (4.20-5.40); White Blood Count 9.2 10^3/uL (4.0-11.0)
[2025-05-07 20:18] LABS: Alanine Aminotransferase 34 U/L (14-59); Albumin Globulin Ratio 1.2; Albumin Level 3.9 g/dL (3.4-5.0); Alkaline Phosphatase 98 U/L (46-116); Anion Gap 13.6; Aspartate Amino Transferase 24 U/L (15-37); Blood Urea Nitrogen 16.0 mg/dL (7.0-18.0); Calcium 10.3 mg/dL (8.5-10.1); Carbon Dioxide 28.5 mmol/L (21.0-32.0); Chloride 102 mmol/L (98-107); Estimated GFR (African America >60 (>=60 mL/min/1.73m^2); Estimated GFR (Non-African Ame >60 (>=60 mL/min/1.73m^2); Globulin 3.3 g/dL; Glucose 102 mg/dL (74-106); Potassium 4.1 mmol/L (3.5-5.1); Sodium 140 mmol/L (136-145); Total Protein 7.2 g/dL (6.4-8.2)
== END 2025-05-07 21:18 | disposition home or self-care (01) ==
PROVIDERS: Nurse Practitioner; Emergency Provider Emergency Medicine; PCP Family Medicine
DX: R07.89 Other chest pain (principal); Z79.899 Other long term (current) drug therapy
CPT/HCPCS: 36415; 71046; 80053; 84484; 85025; 93005; 99285

== ENCOUNTER 2025-06-12 15:43 | Outpatient (REF) | payer OTHER, SELFPAY ==
--- OUTSIDE RECORDS SUMMARY | 2025-06-12 17:22 | XMS_ITS | CCD ---
Author Organization [facility] Care Team Providers Care Biometrics Consultant Name Role Phone ADRIANA, VIRAJ Admitting Unavailable ADRIANA, VIRAJ Attending Unavailable HOY ., DR FALCON Primary Care Unavailable ADRIANA, VIRAJ Consulting Unavailable ADRIANA, VIRAJ Admitting Unavailable ADRIANA, VIRAJ Attending Unavailable HOY ., DR FALCON Primary Care Unavailable ADRIANA, VIRAJ Admitting Unavailable ADRIANA, VIRAJ Attending Unavailable HOY ., DR FALCON Primary Care Unavailable ADRIANA, VIRAJ Consulting Unavailable ALYSSA, DR YAMILET Rodríguez Consulting Unavailable ADRIANA, VIRAJ Admitting Unavailable ADRIANA, VIRAJ Attending Unavailable HOY ., DR FALOCN Primary Care Unavailable ADRIANA, VIRAJ Consulting Unavailable UNIQUE FRASER Consulting Unavailable MILLY MACIAS Consulting Unavailable CHINOY ., DR FALCON Primary Care Unavailable CHRISTINE ., DR RASCON Admitting Unavailable HAY ., DR RASCON Attending Unavailable RICKIE, DR CHAVEZ Hinson Consulting Unavailable HAY ., DR RASCON Consulting Unavailable ADRIANA, VIRAJ Admitting Unavailable ADRIANA, VIRAJ Attending Unavailable CHINOY ., DR FALCON Primary Care Unavailable Unavailable Primary Care Provider Unavailabl e VIRAJ WRIGHT Attending Unavailable Allergies Allergy Classification Reported Allergen(s) Allergy Type Date of Onset Reaction(s) Facility (1 source) Meperidine Drug Allergy 06-11-2013 [facility] Medications Current Medications Medication Drug Class(es) Dates Sig (Normalized) Sig (Original) 168 hr estradiol 0.35322 mg/hr transdermal system (7 sources) Estrogen Start: 05-15-2025 End: 05-15-2026 estradiol (Climara) 0.025 MG/24HR Indications: Postoperative follow-up , Hormone imbalance Place 1 patch over 7 days on the skin 1 (one) time per week 12 patch 3 05/15/2025 05/15/2026 Active Start: 05-12-2025 End: 09-09-2025 take 1 tablet by mouth in the morning estradiol (Estrace) 0.5 MG tablet Indications: Hormone imbalance TAKE 1 TABLET (0.5 MG) BY MOUTH IN THE MORNING 30 tablet 3 05/12/2025 05/15/2025 Discontinued (Side effects) progesterone 100 mg oral capsule (4 sources) Progesterone Start: 05-15-2025 End: 05-15-2026 take 1 capsule by mouth once daily progesterone (Prometrium) 100 MG capsule Indications: Postoperative follow-up , Hormone imbalance Take 1 capsule (100 mg) by mouth Daily 30 capsule 11 05/15/2025 05/15/2026 Active ubrogepant 100 mg oral tablet (5 sources) Start: 07-11-2024 take 1 tablet by mouth every other day Ubrogepant (Ubrelvy) 100 MG tablet Indications: 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, not intractable Take 1 tablet by mouth every other day 16 tablet 3 07/11/2024 Active Problems Active Problems Problem Classification Problem Date [...] with regular cycle] Onset: 10-29-2022 Chronic Other aftercare (2 sources) Surgical follow-up; Translations: [Encounter for follow-up examination after completed treatment for conditions other than malignant neoplasm] 05-15-2025 Episodic Other endocrine disorders (2 sources) Disorder of endocrine system; Translations: [Endocrine disorder, unspecified] 05-15-2025 Episodic Other female genital disorders (1 source) Unspecified [...] te Episodic/Chronic Other aftercare (1 source) Other [facility]iary (current) drug therapy; Translations: [OTH [facility] CURRENT DRUG THERAPY] Onset: 05-08-2022 Episodic Other [...] [Mass/Vol] 11.0 mg/dL Normal 7.0-18.0 [facility] Comment on above: Performed By: #### C THANIA, BUN #### [facility] [address] [address] [address] Katty Gutierrez CBC AUTO DIFFon 01-09-2023 BASO # 0.1 103/ul Normal 0.0-0.1 [facility] Comment on above: Performed By: #### B MP, LIVER #### [facility] [address] [address] [address] Katty Gutierrez Basophils/100 WBC (Bld) 0.4 % Normal 0.2-2.0 [facility] Comment on above: Performed By: #### B MP, LIVER #### [facility] [address] [address] [address] Katty Gutierrez EO # 0.1 103/ul Normal 0.0-0.7 [facility] Comment on above: Performed By: #### B MP, LIVER #### [facility] [address] [place] [address] Dr. Katty Gutierrez Eosinophils/100 WBC (Bld) 0.9 % Normal 0.9-7.0 [facility] Comment on above: Performed By: #### B MP, LIVER #### [facility] [address] [place] [address] Dr. Katty Gutierrez Erythrocyte distribution width (RBC) [Ratio] 12.5 % Normal 11.0-15.0 [facility] Comment on above: Performed By: #### B MP, LIVER #### [facility] [address] [place] [address] Dr. Katty Gutierrez Hematocrit (Bld) [Volume fraction] 33.2 % Critically low 36.0-48.0 [facility] Comment on above: Performed By: #### B MP, LIVER #### [facility] [address] [place] [address] Dr. Katty Gutierrez Hemoglobin (Bld) [Mass/Vol] 11.0 g/dL Critically low 12.0-16.0 [facility] Comment on above: Performed By: #### B MP, LIVER #### [facility] [address] [place] [address] Dr. Katty Gutierrez IG # 0.05 10e3/ul Critically high 0.00-0.03 [facility] Comment on above: Performed By: #### B MP, LIVER #### [facility] [address] [place] [address] Dr. Katty Gutierrez IG % 0.4 % Normal 0.0-0.5 [facility] Comment on above: Performed By: #### B MP, LIVER #### [facility] [address] [place] [address] Dr. Katty Gutierrez LYMPH # 1.4 103/ul Normal 1.2-3.8 [facility] Comment on above: Performed By: #### B MP, LIVER #### [facility] [address] [place] [address] Dr. Katty Gutierrez Lymphocytes/100 WBC (Bld) 10.5 % Critically low 20.5-60.0 [facility] Comment on above: Performed By: #### B MP, LIVER #### [facility] [address] [place] [address] Dr. Katty Gutierrez MANUAL DIFF REQ NO Normal [facility] Comment on above: Performed By: #### B MP, LIVER #### [facility] [address] [place] [address] Dr. Katty Gutierrez MCH (RBC) [Entitic mass] 29.8 pg Normal 26.7-34.0 [facility] Comment on above: Performed By: #### B MP, LIVER #### [facility] [address] [place] [address] Dr. Katty Gutierrez MCHC (RBC) [Mass/Vol] 33.1 g/dL Normal 29.9-35.2 [facility] Comment on above: Performed By: #### B MP, LIVER #### [facility] [address] [place] [address] Dr. Katty Gutierrez MCV (RBC) [Entitic vol] 90.0 fL Normal 81.0-99.0 [facility] Comment on above: Performed By: #### B MP, LIVER #### [facility] [address] [place] [address] Dr. Katty Gutierrez MONO # 1.0 103/ul Critically high 0.3-0.8 [facility] Comment on above: Performed By: #### B MP, LIVER #### [facility] [address] [place] [address] Dr. Katty Gutierrez Monocytes/100 WBC (Bld) 7.5 % Normal 1.7-12.0 [facility] Comment on above: Performed By: #### B MP, LIVER #### [facility] [address] [place] [address] Dr. Katty Gutierrez NEUT # 11.0 103/ul Critically high 1.4-6.5 [facility] Comment on above: Performed By: #### B MP, LIVER #### [facility] [address] [place] [address] Dr. Katty Gutierrez Neutrophils/100 WBC (Bld) 80.3 % Critically high 43.0-75.0 [facility] Comment on above: Performed By: #### B MP, LIVER #### [facility] [address] [place] [address] Dr. Katty Gutierrez Platelet mean volume (Bld) [Entitic vol] 10.4 fL Normal 9.5-13.5 [facility] Comment on above: Performed By: #### B MP, LIVER #### [facility] [address] [place] [address] Dr. Katty Gutierrez PLT 315 103/ul Normal 150-450 [facility] Comment on above: Performed By: #### B MP, LIVER #### [facility] [address] [place] [address] Dr. Katty Gutierrez RBC 3.69 106/ul Critically low 4.20-5.40 [facility] Comment on above: Performed By: #### B MP, LIVER #### [facility] [address] [place] [address] Dr. Katty Gutierrez WBC 13.7 103/ul Critically high 4.0-11.0 [facility] Comment on above: Performed By: #### B MP, LIVER #### [facility] [address] [place] [address] Dr. Katty Gutierrez CREATININEon 01-09-2023 Creatinine [Mass/Vol] 0.86 mg/dL Normal 0.55-1.02 [facility] Comment on above: Performed By: #### C THANIA, BUN #### [facility] [address] [place] [address] Dr. Katty Gutierrez EGFR-AF MONGOLIAN >60 Normal >=60 [facility] Comment on above: Performed By: #### C THANIA, BUN #### [facility] [address] [place] [address] Dr. Katty Gutierrez EGFR-NON AF MONGOLIAN >60 Normal >=60 [facility] Comment on above: Performed By: #### C THANIA, BUN #### [facility] [address] [place] [address] Dr. Katty Gutierrez PREG QUANT HCGon 01-08-2023 HCG QUANT 2 mIU/mL Normal [facility] Comment on above: Performed By: #### P REGQNT #### [facility] [address] [place] [address] Dr. Katty Gutierrez HCG RANGE SEE BELOW Normal [facility] Comment on above: Result Comment: 5-50 0.2-1 WEEK 50-500 1-2 WEEKS 100-5,000 2-3 WEEKS 500-10,000 3-4 WEEKS 1,000-50,000 4-5 WEEKS 10,000-100,000 5-6 WEEKS 15,000-200,000 6-8 WEEKS 10,000-100,000 2-3 MONTHS Performed By: #### P REGQNT #### [facility] [address] [place] [address] Dr. Katty Gutierrez CBC AUTO DIFFon 01-05-2023 BASO # 0.1 103/ul Normal 0.0-0.1 [facility] Comment on above: Performed By: #### P REGQNT #### [facility] [address] [place] [address] Dr. Katty Gutierrez Basophils/100 WBC (Bld) 0.7 % Normal 0.2-2.0 [facility] Comment on above: Performed By: #### P REGQNT #### [facility] [address] [place] [address] Dr. Katty Gutierrez EO # 0.4 103/ul Normal 0.0-0.7 [facility] Comment on above: Performed By: #### P REGQNT #### [facility] [address] [place] [address] Dr. Katty Gutierrez Eosinophils/100 WBC (Bld) 4.4 % Normal 0.9-7.0 [facility] Comment on above: Performed By: #### P REGQNT #### [facility] [address] [place] [address] Dr. Katty Gutierrez Erythrocyte distribution width (RBC) [Ratio] 12.5 % Normal 11.0-15.0 [facility] Comment on above: Performed By: #### P REGQNT #### [facility] [address] [address] [address] Katty Gutierrez Hematocrit (Bld) [Volume fraction] 39.1 % Normal 36.0-48.0 [facility] Comment on above: Performed By: #### P REGQNT #### [facility] [address] [address] [address] Katty Gutierrez Hemoglobin (Bld) [Mass/Vol] 13.6 g/dL Normal 12.0-16.0 [facility] Comment on above: Performed By: #### P REGQNT #### [facility] [address] [address] [address] Katty Gutierrez IG # 0.04 10e3/ul Critically high 0.00-0.03 [facility] Comment on above: Performed By: #### P REGQNT #### [facility] [address] [place] [address] Dr. Katty Gutierrez IG % 0.5 % Normal 0.0-0.5 [facility] Comment on above: Performed By: #### P REGQNT #### [facility] [address] [address] [address] Katty Gutierrez LYMPH # 2.1 103/ul Normal 1.2-3.8 [facility] Comment on above: Performed By: #### P REGQNT #### [facility] [address] [address] [address] Katty Gutierrez Lymphocytes/100 WBC (Bld) 25.2 % Normal 20.5-60.0 [facility] Comment on above: Performed By: #### P REGQNT #### [facility] [address] [place] [address] Dr. Katty Gutierrez MANUAL DIFF REQ NO Normal [facility] Comment on above: Performed By: #### P REGQNT #### [facility] [address] [place] [address] Dr. Katty Gutierrez MCH (RBC) [Entitic mass] 30.4 pg Normal 26.7-34.0 [facility] Comment on above: Performed By: #### P REGQNT #### [facility] [address] [address] [address] Katty Gutierrez MCHC (RBC) [Mass/Vol] 34.8 g/dL Normal 29.9-35.2 [facility] Comment on above: Performed By: #### P REGQNT #### [facility] [address] [address] [address] Katty Gutierrez MCV (RBC) [Entitic vol] 87.3 fL Normal 81.0-99.0 [facility] Comment on above: Performed By: #### P REGQNT #### [facility] [address] [address] [address] Katty Gutierrez MONO # 0.7 103/ul Normal 0.3-0.8 [facility] Comment on above: Performed By: #### P REGQNT #### [facility] [address] [place] [address] Dr. Katty Gutierrez Monocytes/100 WBC (Bld) 8.2 % Normal 1.7-12.0 [facility] Comment on above: Performed By: #### P REGQNT #### [facility] [address] [place] [address] Dr. Katty Gutierrez NEUT # 5.0 103/ul Normal 1.4-6.5 [facility] Comment on above: Performed By: #### P REGQNT #### [facility] [address] [place] [address] Dr. Katty Gutierrez Neutrophils/100 WBC (Bld) 61.0 % Normal 43.0-75.0 [facility] Comment on above: Performed By: #### P REGQNT #### [facility] [address] [address] [address] Katty Gutierrez Platelet mean volume (Bld) [Entitic vol] 9.8 fL Normal 9.5-13.5 [facility] Comment on above: Performed By: #### P REGQNT #### [facility] [address] [place] [address] Dr. Katty Gutierrez PLT 321 103/ul Normal 150-450 [facility] Comment on above: Performed By: #### P REGQNT #### [facility] [address] [place] [address] Dr. Katty Gutierrez RBC 4.48 106/ul Normal 4.20-5.40 [facility] Comment on above: Performed By: #### P REGQNT #### [facility] [address] [place] [address] Dr. Katty Gutierrez WBC 8.3 103/ul Normal 4.0-11.0 [facility] Comment on above: Performed By: #### P REGQNT #### [facility] [address] [place] [address] Dr. Katty Gutierrez LIVER PROFILEon 01-05-2023 Albumin [Mass/Vol] 4.1 g/dL Normal 3.4-5.0 [facility] Comment on above: Performed By: #### B MP, LIVER #### [facility] [address] [place] [address] Dr. Katty Gutierrez Albumin/Globulin [Mass ratio] 1.3 {ratio} Normal [facility] Comment on above: Performed By: #### B MP, LIVER #### [facility] [address] [place] [address] Dr. Katty Gutierrez ALP [Catalytic activity/Vol] 91 U/L Normal 46-116 [facility] Comment on above: Performed By: #### B MP, LIVER #### [facility] [address] [place] [address] Dr. Katty Gutierrez ALT [Catalytic activity/Vol] 41 U/L Normal 14-59 [facility] Comment on above: Performed By: #### B MP, LIVER #### [facility] [address] [place] [address] Dr. Katty Gutierrez AST [Catalytic activity/Vol] 18 U/L Normal 15-37 [facility] Comment on above: Performed By: #### B MP, LIVER #### [facility] [address] [place] [address] Dr. Katty Gutierrez BILI, CONJUGATED 0.1 mg/dL Normal 0.0-0.2 [facility] Comment on above: Performed By: #### B MP, LIVER #### [facility] [address] [place] [address] Dr. Katty Gutierrez Bilirubin [Mass/Vol] 0.6 mg/dL Normal 0.2-1.0 [facility] Comment on above: Performed By: #### B MP, LIVER #### [facility] [address] [place] [address] Dr. Katty Gutierrez Globulin (S) [Mass/Vol] 3.1 g/dL Normal [facility] Comment on above: Performed By: #### B MP, LIVER #### [facility] [address] [place] [address] Dr. Katty Gutierrez Protein [Mass/Vol] 7.2 g/dL Normal 6.4-8.2 [facility] Comment on above: Performed By: #### B MP, LIVER #### [facility] [address] [place] [address] Dr. Katty Gutierrez PROF CHEM 8 (BAS METB)on Anion gap [Moles/Vol] 13.0 mmol/L Normal [facility] Comment on above: Performed By: #### B MP, LIVER #### [facility] [address] [place] [address] Dr. Katty Gutierrez Calcium [Mass/Vol] 9.2 mg/dL Normal 8.5-10.1 [facility] Comment on above: Performed By: #### B MP, LIVER #### [facility] [address] [place] [address] Dr. Katty Gutierrez Chloride [Moles/Vol] 105 mmol/L Normal 98-107 [facility] Comment on above: Performed By: #### B MP, LIVER #### [facility] [address] [place] [address] Dr. Katty Gutierrez CO2 [Moles/Vol] 25.0 mmol/L Normal 21.0-32.0 [facility] Comment on above: Performed By: #### B MP, LIVER #### [facility] [address] [place] [address] Dr. Katty Gutierrez Creatinine [Mass/Vol] 0.84 mg/dL Normal 0.55-1.02 [facility] Comment on above: Performed By: #### B MP, LIVER #### [facility] [address] [place] [address] Dr. Katty Gutierrez EGFR-AF MONGOLIAN >60 Normal >=60 [facility] Comment on above: Performed By: #### B MP, LIVER #### [facility] [address] [address] [address] Katty Gutierrez EGFR-NON AF MONGOLIAN >60 Normal >=60 [facility] Comment on above: Performed By: #### B MP, LIVER #### [facility] [address] [place] [address] Dr. Katty Gutierrez Glucose [Mass/Vol] 121 mg/dL Critically high 74-106 [facility] Comment on above: Performed By: #### B MP, LIVER #### [facility] [address] [place] [address] Dr. Katty Gutierrez Potassium [Moles/Vol] 4.0 mmol/L Normal 3.5-5.1 [facility] Comment on above: Performed By: #### B MP, LIVER #### [facility] [address] [place] [address] Dr. Katty Gutierrez Sodium [Moles/Vol] 139 mmol/L Normal 136-145 [facility] Comment on above: Performed By: #### B MP, LIVER #### [facility] [address] [place] [address] Dr. Katty Gutierrez Urea nitrogen [Mass/Vol] 13.0 mg/dL Normal 7.0-18.0 [facility] Comment on above: Performed By: #### B MP, LIVER #### [facility] [address] [place] [address] Dr. Katty Gutierrez Urea nitrogen/Creatinine [Mass ratio] 15.5 mg/mg Normal [facility] Comment on above: Performed By: #### B MP, LIVER #### [facility] [address] [place] [address] Dr. Katty Gutierrez PROTIMEon 01-05-2023 INR Coag (PPP) [Relative time] 0.96 {INR} Normal [facility] Comment on above: Performed By: #### P T, PTT #### [facility] [address] [place] [address] Dr. Katty Gutierrez INR GUIDELINES SEE BELOW Normal [facility] Comment on above: Result Comment: RICARDA RED INR: 2.0 - 3.0 CONDITIONS NOT LISTED BELOW 2.5 - 3.5 FOR PROSTHETIC HEART VALVE REPLACEMENT 2.5 - 3.5 RECURRENT THROMBOSIS Performed By: #### P T, PTT #### [facility] [address] [place] [address] Dr. Katty Gutierrez PT Coag (PPP) [Time] 10.2 s Normal 9.0-11.6 [facility] Comment on above: Performed By: #### P T, PTT #### [facility] [address] [place] [address] Dr. Katty Gutierrez PTTon 01-05-2023 aPTT Coag (Bld) [Time] 26.2 s Normal 22.3-36.2 [facility] Comment on above: Performed By: #### P T, PTT #### [facility] [address] [place] [address] Dr. Katty Gutierrez TYPE AND SCREENon 01-05-2023 TYPE AND SCREEN Negative Normal [facility] Comment on above: Performed By: #### B MP, LIVER #### [facility] [address] [place] [address] Dr. Katty Gutierrez CBC AUTO DIFFon 10-29-2022 BASO # 0.1 103/ul Normal 0.0-0.1 [facility] Comment on above: Performed By: #### C BC #### [facility] [address] [place] [address] Dr. Katty Gutierrez Basophils/100 WBC (Bld) 0.7 % Normal 0.2-2.0 [facility] Comment on above: Performed By: #### C BC #### [facility] [address] [place] [address] Dr. Katty Gutierrez EO # 0.3 103/ul Normal 0.0-0.7 [facility] Comment on above: Performed By: #### C BC #### [facility] [address] [place] [address] Dr. Katty Gutierrez Eosinophils/100 WBC (Bld) 3.2 % Normal 0.9-7.0 [facility] Comment on above: Performed By: #### C BC #### [facility] [address] [place] [address] Dr. Katty Gutierrez Erythrocyte distribution width (RBC) [Ratio] 12.4 % Normal 11.0-15.0 [facility] Comment on above: Performed By: #### C BC #### [facility] [address] [place] [address] Dr. Katty Gutierrez Hematocrit (Bld) [Volume fraction] 42.7 % Normal 36.0-48.0 [facility] Comment on above: Performed By: #### C BC #### [facility] [address] [place] [address] Dr. Katty Gutierrez Hemoglobin (Bld) [Mass/Vol] 14.3 g/dL Normal 12.0-16.0 [facility] Comment on above: Performed By: #### C BC #### [facility] [address] [place] [address] Dr. Katty Gutierrez IG # 0.04 10e3/ul Critically high 0.00-0.03 [facility] Comment on above: Performed By: #### C BC #### [facility] [address] [place] [address] Dr. Katty Gutierrez IG % 0.4 % Normal 0.0-0.5 [facility] Comment on above: Performed By: #### C BC #### [facility] [address] [place] [address] Dr. Katty Gutierrez LYMPH # 2.5 103/ul Normal 1.2-3.8 [facility] Comment on above: Performed By: #### C BC #### [facility] [address] [place] [address] Dr. Katty Gutierrez Lymphocytes/100 WBC (Bld) 24.7 % Normal 20.5-60.0 [facility] Comment on above: Performed By: #### C BC #### [facility] [address] [place] [address] Dr. Katty Gutierrez MANUAL DIFF REQ NO Normal [facility] Comment on above: Performed By: #### C BC #### [facility] [address] [place] [address] Dr. Katty Gutierrez MCH (RBC) [Entitic mass] 30.0 pg Normal 26.7-34.0 [facility] Comment on above: Performed By: #### C BC #### [facility] [address] [place] [address] Dr. Katty Gutierrez MCHC (RBC) [Mass/Vol] 33.5 g/dL Normal 29.9-35.2 [facility] Comment on above: Performed By: #### C BC #### [facility] [address] [place] [address] Dr. Katty Gutierrez MCV (RBC) [Entitic vol] 89.7 fL Normal 81.0-99.0 [facility] Comment on above: Performed By: #### C BC #### [facility] [address] [place] [address] Dr. Katty Gutierrez MONO # 0.7 103/ul Normal 0.3-0.8 [facility] Comment on above: Performed By: #### C BC #### [facility] [address] [place] [address] Dr. Katty Gutierrez Monocytes/100 WBC (Bld) 7.0 % Normal 1.7-12.0 [facility] Comment on above: Performed By: #### C BC #### [facility] [address] [place] [address] Dr. Katty Gutierrez NEUT # 6.5 103/ul Normal 1.4-6.5 [facility] Comment on above: Performed By: #### C BC #### [facility] [address] [place] [address] Dr. Katty Gutierrez Neutrophils/100 WBC (Bld) 64.0 % Normal 43.0-75.0 [facility] Comment on above: Performed By: #### C BC #### [facility] [address] [place] [address] Dr. Katty Gutierrez Platelet mean volume (Bld) [Entitic vol] 9.5 fL Normal 9.5-13.5 [facility] Comment on above: Performed By: #### C BC #### [facility] [address] [place] [address] Dr. Katty Gutierrez PLT 363 103/ul Normal 150-450 [facility] Comment on above: Performed By: #### C BC #### [facility] [address] [place] [address] Dr. Katty Gutierrez RBC 4.76 106/ul Normal 4.20-5.40 [facility] Comment on above: Performed By: #### C BC #### [facility] [address] [place] [address] Dr. Katty Gutierrez WBC 10.1 103/ul Normal 4.0-11.0 [facility] Comment on above: Performed By: #### C BC #### [facility] [address] [place] [address] Dr. Katty Gutierrez FREE T4on 10-29-2022 Free T4 [Mass/Vol] 1.04 ng/dL Normal 0.76-1.46 [facility] Comment on above: Performed By: #### P REGQNT #### [facility] [address] [place] [address] Dr. Katty Gutierrez PREG QUANT HCGon 10-29-2022 HCG QUANT <1 Normal [facility] Comment on above: Performed By: #### P REGQNT, TSH #### [facility] [address] [place] [address] Dr. Katty Gutierrez HCG RANGE SEE BELOW Normal [facility] Comment on above: Result Comment: 5-50 0.2-1 WEEK 50-500 1-2 WEEKS 100-5,000 2-3 WEEKS 500-10,000 3-4 WEEKS 1,000-50,000 4-5 WEEKS 10,000-100,000 5-6 WEEKS 15,000-200,000 6-8 WEEKS 10,000-100,000 2-3 MONTHS Performed By: #### P REGQNT, TSH #### [facility] [address] [place] [address] Dr. Katty Gutierrez PROTIMEon 10-29-2022 INR Coag (PPP) [Relative time] 0.97 {INR} Normal [facility] Comment on above: Performed By: #### P REGQNT #### [facility] [address] [place] [address] Dr. Katty Gutierrez INR GUIDELINES SEE BELOW Normal [facility] Comment on above: Result Comment: RICARDA RED INR: 2.0 - 3.0 CONDITIONS NOT LISTED BELOW 2.5 - 3.5 FOR PROSTHETIC HEART VALVE REPLACEMENT 2.5 - 3.5 RECURRENT THROMBOSIS Performed By: #### P REGQNT #### [facility] [address] [place] [address] Dr. Katty Gutierrez PT Coag (PPP) [Time] 10.5 s Normal 9.0-11.6 [facility] Comment on above: Performed By: #### P REGQNT #### [facility] [address] [place] [address] Dr. Katty Gutierrez PTTon 10-29-2022 aPTT Coag (Bld) [Time] 26.7 s Normal 22.3-36.2 [facility] Comment on above: Performed By: #### P REGQNT #### [facility] [address] [place] [address] Dr. Katty Gutierrez TSHon 10-29-2022 TSH 1.956 uIU/mL Normal 0.358-3.740 [facility] Comment on above: Performed By: #### P REGQNT, TSH #### [facility] [address] [place] [address] Dr. Katty Gutierrez US PELVIS AND TRANSVAGon [...] YAMILET SHAH Date: 2022-10-29 17:23 Normal [facility] BNPon 05-07-2022 Natriuretic peptide B (Bld) [Mass/Vol] 12.0 pg/mL Normal <=450.0 [facility] Comment on above: Performed By: #### P REGQNT #### [facility] [address] [place] [address] Dr. Katty Gutierrez CBC AUTO DIFFon 05-07-2022 BASO # 0.1 103/ul Normal 0.0-0.1 [facility] Comment on above: Performed By: #### P REGQNT #### [facility] [address] [place] [address] Dr. Katty Gutierrez Basophils/100 WBC (Bld) 0.6 % Normal 0.2-2.0 [facility] Comment on above: Performed By: #### P REGQNT #### [facility] [address] [place] [address] Dr. Katty Gutierrez EO # 0.3 103/ul Normal 0.0-0.7 [facility] Comment on above: Performed By: #### P REGQNT #### [facility] [address] [address] [address] Katty Gutierrez Eosinophils/100 WBC (Bld) 4.0 % Normal 0.9-7.0 [facility] Comment on above: Performed By: #### P REGQNT #### [facility] [address] [place] [address] Dr. Katty Gutierrez Erythrocyte distribution width (RBC) [Ratio] 12.7 % Normal 11.0-15.0 [facility] Comment on above: Performed By: #### P REGQNT #### [facility] [address] [place] [address] Dr. Katty Gutierrez Hematocrit (Bld) [Volume fraction] 40.6 % Normal 36.0-48.0 [facility] Comment on above: Performed By: #### P REGQNT #### [facility] [address] [place] [address] Dr. Katty Gutierrez Hemoglobin (Bld) [Mass/Vol] 13.5 g/dL Normal 12.0-16.0 [facility] Comment on above: Performed By: #### P REGQNT #### [facility] [address] [place] [address] Dr. Katty Gutierrez IG # 0.03 10e3/ul Normal 0.00-0.03 [facility] Comment on above: Performed By: #### P REGQNT #### [facility] [address] [place] [address] Dr. Katty Gutierrez IG % 0.4 % Normal 0.0-0.5 [facility] Comment on above: Performed By: #### P REGQNT #### [facility] [address] [place] [address] Dr. Katty Gutierrez LYMPH # 2.3 103/ul Normal 1.2-3.8 [facility] Comment on above: Performed By: #### P REGQNT #### [facility] [address] [place] [address] Dr. Katty Gutierrez Lymphocytes/100 WBC (Bld) 27.4 % Normal 20.5-60.0 [facility] Comment on above: Performed By: #### P REGQNT #### [facility] [address] [place] [address] Dr. Katty Gutierrez MANUAL DIFF REQ NO Normal [facility] Comment on above: Performed By: #### P REGQNT #### [facility] [address] [place] [address] Dr. Katty Gutierrez MCH (RBC) [Entitic mass] 29.9 pg Normal 26.7-34.0 [facility] Comment on above: Performed By: #### P REGQNT #### [facility] [address] [place] [address] Dr. Katty Gutierrez MCHC (RBC) [Mass/Vol] 33.3 g/dL Normal 29.9-35.2 [facility] Comment on above: Performed By: #### P REGQNT #### [facility] [address] [place] [address] Dr. Katty Gutierrez MCV (RBC) [Entitic vol] 90.0 fL Normal 81.0-99.0 [facility] Comment on above: Performed By: #### P REGQNT #### [facility] [address] [place] [address] Dr. Katty Gutierrez MONO # 0.6 103/ul Normal 0.3-0.8 [facility] Comment on above: Performed By: #### P REGQNT #### [facility] [address] [place] [address] Dr. Katty Gutierrez Monocytes/100 WBC (Bld) 7.2 % Normal 1.7-12.0 [facility] Comment on above: Performed By: #### P REGQNT #### [facility] [address] [place] [address] Dr. Katty Gutierrez NEUT # 5.1 103/ul Normal 1.4-6.5 [facility] Comment on above: Performed By: #### P REGQNT #### [facility] [address] [place] [address] Dr. Katty Gutierrez Neutrophils/100 WBC (Bld) 60.4 % Normal 43.0-75.0 [facility] Comment on above: Performed By: #### P REGQNT #### [facility] [address] [place] [address] Dr. Katty Gutierrez Platelet mean volume (Bld) [Entitic vol] 10.0 fL Normal 9.5-13.5 [facility] Comment on above: Performed By: #### P REGQNT #### [facility] [address] [place] [address] Dr. Katty Gutierrez PLT 319 103/ul Normal 150-450 [facility] Comment on above: Performed By: #### P REGQNT #### [facility] [address] [place] [address] Dr. Katty Gutierrez RBC 4.51 106/ul Normal 4.20-5.40 [facility] Comment on above: Performed By: #### P REGQNT #### [facility] [address] [place] [address] Dr. Katty Gutierrez WBC 8.5 103/ul Normal 4.0-11.0 [facility] Comment on above: Performed By: #### P REGQNT #### [facility] [address] [place] [address] Dr. Katty Gutierrez CTA CHEST WO W CONon 022 CTA CHEST WO W CON EXAMINATION: [...] CHAVEZ DAMIAN Date: 2022-05-07 12:19 Normal [facility] PROF CHEM 8 (BAS METB)on Anion gap [Moles/Vol] 14.9 mmol/L Normal [facility] Comment on above: Performed By: #### P REGQNT #### [facility] [address] [address] [address] Katty Gutierrez Calcium [Mass/Vol] 9.4 mg/dL Normal 8.5-10.1 [facility] Comment on above: Performed By: #### P REGQNT #### [facility] [address] [address] [address] Katty Gutierrez Chloride [Moles/Vol] 104 mmol/L Normal 98-107 [facility] Comment on above: Performed By: #### P REGQNT #### [facility] [address] [place] [address] Dr. Katty Gutierrez CO2 [Moles/Vol] 26.1 mmol/L Normal 21.0-32.0 [facility] Comment on above: Performed By: #### P REGQNT #### [facility] [address] [place] [address] Dr. Katty Gutierrez Creatinine [Mass/Vol] 0.96 mg/dL Normal 0.55-1.02 [facility] Comment on above: Performed By: #### P REGQNT #### [facility] [address] [place] [address] Dr. Katty Gutierrez EGFR-AF MONGOLIAN >60 Normal >=60 [facility] Comment on above: Performed By: #### P REGQNT #### [facility] [address] [place] [address] Dr. Katty Gutierrez EGFR-NON AF MONGOLIAN >60 Normal >=60 [facility] Comment on above: Performed By: #### P REGQNT #### [facility] [address] [address] [address] Katty Gutierrez Glucose [Mass/Vol] 104 mg/dL Normal 74-106 [facility] Comment on above: Performed By: #### P REGQNT #### [facility] [address] [place] [address] Dr. Katty Gutierrez Potassium [Moles/Vol] 4.0 mmol/L Normal 3.5-5.1 [facility] Comment on above: Performed By: #### P REGQNT #### [facility] [address] [address] [address] Katty Gutierrez Sodium [Moles/Vol] 141 mmol/L Normal 136-145 [facility] Comment on above: Performed By: #### P REGQNT #### [facility] [address] [address] [address] Katty Gutierrez Urea nitrogen [Mass/Vol] 8.0 mg/dL Normal 7.0-18.0 [facility] Comment on above: Performed By: #### P REGQNT #### [facility] [address] [address] [address] Katty Gutierrez Urea nitrogen/Creatinine [Mass ratio] 8.3 mg/mg Normal [facility] Comment on above: Performed By: #### P REGQNT #### [facility] [address] [address] [address] Katty Gutierrez TROPONIN, HIGH SENSITIVITYon 05-07-2022 HSTROP <4.0 Normal 4.0-51.3 [facility] Comment on above: Result Comment: CUT- OFF POINTS HAVE BEEN ESTABLISHED BASED ON THE FOURTH UNIVERSAL DEFINITIONS OF MYOCARDIAL INFARCTION. THE UPPER REFERENCE LIMIT (URL) OF TROPONIN, DEFINED THE 99TH PERCENTILE OF cTnI DISTRIBUTION IN A REFERENCE POPULATION, HAS BEEN CONFIRMED THE DECISION THRESHOLD FOR [place] DIAGNOSIS. Performed By: #### P REGQNT #### [facility] [address] [address] [address] Katty Gutierrez Vital Signs Date Time Vital Sign Value Performing Clinician Lisseth العليy 06-12-2025 12:59-0400 Body mass index (BMI) [Ratio] 41.96 kg/m2 [place] Work Phone: [facility] 06-12-2025 12:59-0400 Body weight 140.34 kg [place] Work Phone: [facility] 06-12-2025 12:59-0400 Diastolic blood pressure 70 mm[Hg] [place] Work Phone: [facility] 06-12-2025 12:59-0400 Systolic blood pressure 112 mm[Hg] Viraj Adriana DO Work Phone: [facility] 05-15-2025 11:10-0400 Body mass index (BMI) [Ratio] 42.42 kg/m2 Viraj Adriana DO Work Phone: [facility] 05-15-2025 11:10-0400 Body weight 141.86 kg Viraj Adriana DO Work Phone: [facility] 05-15-2025 11:10-0400 Diastolic blood pressure 86 mm[Hg] Viraj Adriana DO Work Phone: [facility] 05-15-2025 11:10-0400 Systolic blood pressure 128 mm[Hg] Viraj Adriana DO Work Phone: [facility] Encounters Encounter Date Encounter Type Care Provider Facility Start: 06-12-2025 End: 06-12-2025 Bamboo flowsheet Viraj Adriana DO Work Phone: [facility] Start: 06-12-2025 End: 06-12-2025 Bamboo flowsheet Viraj Adriana DO Work Phone: [facility] Start: 06-12-2025 End: 06-12-2025 Patient encounter procedure Viraj Adriana DO Work Phone: [facility] Work Phone: Start: 06-12-2025 End: 06-12-2025 Periodic preventive med est patient 18-39 yrs Viraj Adriana DO Work Phone: [facility] Comment on above: Well woman exam with routine gynecological exam Start: 05-15-2025 End: 05-15-2025 Bamboo flowsheet Viraj Adriana DO Work Phone: [facility] Start: 05-15-2025 End: 05-15-2025 Bamboo flowsheet Viraj Adriana DO Work Phone: [facility] Start: 05-15-2025 End: 05-15-2025 Office outpatient visit 15 minutes Viraj Wright DO Work Phone: [facility] Comment on above: Hormone imbalance (P rimary Dx); Postoperative follow-up Start: 05-15-2025 End: 05-15-2025 ambulatory VIRAJ ADRIANA Not Available Start: 01-12-2023 [facility]: 01-08-2023 End: 01-09-2023 ambulatory VIRAJ ZALDIVARO Facility:[facility] Start: 01-05-2023 End: 01-06-2023 ambulatory VIRAJ SWENSONZIO Facility:[facility] Start: 01-05-2023 End: 01-06-2023 Encounter for preprocedural cardiovascular examination VIRAJ SWENSONZIO Facility:[facility] Start: 12-29-2022 Encounter for other preprocedural examination VIRAJ [facility] Start: 12-26-2022 End: 12-27-2022 ambulatory VIRAJ SWENSONZIO Facility:[facility] Start: 12-26-2022 End: 12-27-2022 Encounter for other preprocedural examination VIRAJ ZALDIVARO Facility:[facility] Start: 10-29-2022 End: 10-30-2022 ambulatory VIRAJ SWENSONZIO Facility:[facility] Start: 05-29-2022 ambulatory VIRAJ SWENSONZIO Facility:[facility] Start: 05-07-2022 End: 05-07-[address] TERRIE BE . Facility:[facility] Procedures Date Procedure Procedure Detail Performing Clinician Start: 01-20-2024 Microscopic observat ion [Identifier] in Cervix by Cyto stain Viraj Wright DO Work Phone: Plan of Treatment Date Care Activity Detail Author Start: 01-19-2027 Screening for malign ant neoplasm of cervix [facility] Start: 06-13-2026 End: 06-13-2026 Patient encounter procedure 06/13/2026 1:00 PM EDT Procedure Visit [facility] [address] [place] [id number] Viraj Wright DO [address] [place] [address] [facility] Start: 06-26-2025 Influenza vaccination Influenza Vacc ine (#1) [facility] Start: 06-12-2025 End: 06-12-2025 Patient encounter procedure [facility] Comment on above: Arrived Start: 05-15-2025 End: 05-15-2025 Patient encounter procedure 05/15/2025 11:30 AM EDT Office Visit [facility] [address] [address] Viraj Wright, [address] [place] [address] Arrived [facility] Comment on above: Arrived Start: 02-29-2020 Screening for malign ant neoplasm of cervix HPV/Cotest [facility] Cytology Cervical or vaginal smear or scraping study Pap Smear Pathology and Cytology Routine Well woman exam with routine gynecological exam Ordered: 06/12/2025 [facility] Work Phone: Comment on above: Ordered: 06/12/2025 Human papilloma viru s DNA [Presence] in Unspecified specimen by Probe with amplification HPV DNA probe, amplified Microbiology Routine Well woman exam with routine gynecological exam Ordered: 06/12/2025 [facility] Comment on above: Ordered: 06/12/2025 Payers Date Payer Category Payer Private Health Insurance HEYDI arnetter [id number] 1987 Unknown [id number] 1987 Unknown [id number] 1987 Unknown [id number] 1987 Unknown [id number] 1987 Unknown [id number] 1987 Unknown [id number] 1987 Unknown [id number] 1959 Private Health Insurance [id number] 1957 Self-pay Social History Date Type Detail Facility Start: 12-22-2023 Tobacco smoking stat [facility] Never smoked tobacco [facility] Start: 01-20-2024 End: 06-12-2025 Alcoholic beverage intake Lifetime non-drinker (finding) [facility] Start: 12-22-2023 End: 06-12-2025 History of Social function [facility] Start: 12-22-2023 End: 06-12-2025 Tobacco use panel [facility] Start: 12-22-2023 Alcohol Comment caffeine: 1 ca n pop occasionally [facility] Start: 1985 Sex assigned at Not on file [facility] History of Present illness Narrative 06-12-2025 Alexa Gonzales LPN - 06/12/2025 1:10 PM EDT Note Date & Type Note Facility 06-12-2025 History of Presen t illness Narrative Reason for Appointment: Patient ID: Amy Cannon is a 40 y.o. female who presents for Well Women Visit Patient presents today for Annual Exam. MEDICATIONS Current Outpatient Medications Medication Instructions estradiol (Climara) 0.025 MG/24HR 1 patch, Transdermal, Weekly progesterone (PROMETRIUM) 100 mg, Oral, Daily Ubrogepant (Ubrelvy) 100 MG tablet 1 tablet, Oral, Every other day ALLERGIES No Known Allergies PROBLEMS Active Ambulatory Problems Diagnosis Date Noted No Active Ambulatory Problems Resolved Ambulatory Problems Diagnosis Date Noted No Resolved Ambulatory Problems Past Medical History: Diagnosis Date Irregular periods Morbid obesity with BMI of 40.0-44.9, adult ([facility]) HISTORY PAST MEDICAL HISTORY SOCIAL HISTORY Past Medical History: Diagnosis Date Irregular periods Morbid obesity with BMI of 40.0-44.9, adult ([facility]) Social History Tobacco Use Smoking status: Never Smokeless tobacco: Not on file Substance Use Topics Alcohol use: Never Comment: caffeine: 1 can pop occasionally Drug use: Never FAMILY HISTORY Family History Problem Relation Name Age of Onset Melanoma Mother Hypertension Father Heart disease Father Heart disease Maternal Grandmother Hypertension Maternal Grandmother Hypertension Maternal Grandfather Hypertension Paternal Grandmother Hypertension Paternal Grandfather SURGICAL HISTORY Past Surgical History: Procedure Laterality Date SECTION, LOW TRANSVERSE x2 CHOLECYSTECTOMY HYSTERECTOMY 01/08/2023 robotic hysterectomy w/right oophorectomy TUBAL LIGATION 2010 REVIEW OF SYSTEMS Review of Systems: Review of Systems Constitutional: Negative. HENT: Negative. Eyes: Negative. Respiratory: Negative. Cardiovascular: Negative. Gastrointestinal: Negative. Genitourinary: Negative. Musculoskeletal: Negative. Skin: Negative. Neurological: Negative. All other systems reviewed and are negative. Hematological: Negative. Endocrine: Negative. Allergic/Immunologic: Negative. OBJECTIVE Objective: Physical Exam Constitutional: Appearance: Normal appearance. She is well-developed. Genitourinary: Vulva normal. Vaginal cuff intact. Cervix is absent. Uterus is absent. Breasts: Breasts are soft. Right: Normal. Left: Normal. Cardiovascular: Rate and Rhythm: Normal rate and regular rhythm. Abdominal: General: Bowel sounds are normal. There is no distension. Palpations: Abdomen is soft. Tenderness: There is no abdominal tenderness. There is no guarding or rebound. Musculoskeletal: General: No swelling. Normal range of motion. Right lower leg: No edema. Left lower leg: No edema. Neurological: Mental Status: She is alert and oriented to person, place, and time. Skin: General: Skin is warm and dry. Psychiatric: Mood and Affect: Mood normal. Behavior: Behavior normal. Vitals and nursing note reviewed. Exam conducted with a tavern keeper present. Vitals: Estimated body mass index is 41.96 kg/m as calculated from the following: Height as of 01/11/24: 6'. Weight as of this encounter: 309 lb 6.4 oz. BP: 112/70 No LMP recorded. Patient has had a hysterectomy. ASSESSMENT & PLAN ICD-10-CM 1. Well woman exam with routine gynecological exam Z01.419 Pap Smear HPV DNA probe, amplified Annual Exam: Patient presents today for an annual exam. Patient states she is doing well and has no complaints. Pap was obtained without difficulty. Patient voiced that Prometrium and Climara patch are helping with symptoms. Patient will call when she needs more refills. Orders Placed This Encounter Procedures HPV DNA probe, amplified Follow Up: Patient is to return in one year for annual unless needed otherwise. Documented by Alexa Gonzales LPN on behalf of: Viraj Wright DO documented in this encounter [facility] History of Present illness Narrative 05-15-2025 Jerilyn Coleman NP - 05/15/2025 11:30 AM EDT Note Date & Type Note Facility 05-15-2025 History of Presen t illness Narrative Reason for Appointment: Patient ID: Amy Cannon is a 40 y.o. female who presents for Post-op Visit Patient presents today for Post op /acute visit MEDICATIONS Current Outpatient Medications Medication Instructions Ubrogepant (Ubrelvy) 100 MG tablet 1 tablet, Oral, Every other day ALLERGIES No Known Allergies PROBLEMS Active Ambulatory Problems Diagnosis Date Noted No Active Ambulatory Problems Resolved Ambulatory Problems Diagnosis Date Noted No Resolved Ambulatory Problems Past Medical History: Diagnosis Date Irregular periods Morbid obesity with BMI of 40.0-44.9, adult ([facility]) HISTORY PAST MEDICAL HISTORY SOCIAL HISTORY Past Medical History: Diagnosis Date Irregular periods Morbid obesity with BMI of 40.0-44.9, adult ([facility]) Social History Tobacco Use Smoking status: Never Smokeless tobacco: Not on file Substance Use Topics Alcohol use: Never Comment: caffeine: 1 can pop occasionally Drug use: Never FAMILY HISTORY Family History Problem Relation Name Age of Onset Melanoma Mother Hypertension Father Heart disease Father Heart disease Maternal Grandmother Hypertension Maternal Grandmother Hypertension Maternal Grandfather Hypertension Paternal Grandmother Hypertension Paternal Grandfather SURGICAL HISTORY Past Surgical History: Procedure Laterality Date SECTION, LOW TRANSVERSE x2 CHOLECYSTECTOMY HYSTERECTOMY 01/08/2023 robotic hysterectomy w/right oophorectomy TUBAL LIGATION 2010 REVIEW OF SYSTEMS Review of Systems: Review of Systems Constitutional: Positive for fatigue. Aching joints HENT: Negative. Eyes: Negative. Respiratory: Negative. Cardiovascular: Negative. Gastrointestinal: Negative. Genitourinary: Negative. Musculoskeletal: Negative. Skin: Negative. Neurological: Negative. Psychiatric/Behavioral: Anxiety All other systems reviewed and are negative. Hematological: Negative. Endocrine: Negative. Allergic/Immunologic: Negative. OBJECTIVE Objective: Physical Exam Constitutional: Appearance: Normal appearance. She is well-developed. Cardiovascular: Rate and Rhythm: Normal rate and regular rhythm. Pulmonary: Effort: Pulmonary effort is normal. Breath sounds: Normal breath sounds. Abdominal: General: Bowel sounds are normal. There is no distension. Palpations: Abdomen is soft. Tenderness: There is no abdominal tenderness. There is no guarding or rebound. Musculoskeletal: General: No swelling. Normal range of motion. Right lower leg: No edema. Left lower leg: No edema. Neurological: Mental Status: She is alert and oriented to person, place, and time. Skin: General: Skin is warm and dry. Psychiatric: Mood and Affect: Mood normal. Behavior: Behavior normal. Vitals and nursing note reviewed. Exam conducted with a tavern keeper present. Vitals: Estimated body mass index is 42.42 kg/m as calculated from the following: Height as of 01/11/24: 6'. Weight as of this encounter: 312 lb 12 oz. BP: 128/86 No LMP recorded. Patient has had a hysterectomy. ASSESSMENT & PLAN ICD-10-CM 1. Hormone imbalance E34.9 2. Postoperative follow-up Z09 Patient presents 6 months post hysterectomy. She reports continued hormonal complaints including joint pain, fatigue and anxiety. She also has had complaints of heaviness in her chest . She reports complete cardiac work up and recent Emergency Department visit. She reports no CP or SOB today and reports ED visit with negative cardiac work up. She reports oral estrogen does not seem to help her symptoms. Discussed Micronized progesterone and Climara patch with patient today and she would like to proceed with this treatment plan and will follow up with our office in 4 weeks. She is to discontinue oral estrogen at this time. Documented by Jerilyn Coleman NP on behalf of: Viraj Wright DO documented in this encounter [facility] Clinical Note 01-08-2023 Note Date & Type Note Facility 01-08-2023 Note OPERATIVE NOTE OPERATION DATE: 01/08/2023 PROCEDURE: Robotic assisted laparoscopic hysterectomy with bilateral salpingectomy with right oophorectomy. PREOPERATIVE DIAGNOSIS: Menorrhagia, dysmenorrhea, dyspareunia, pelvic pain. POSTOPERATIVE DIAGNOSIS: Menorrhagia, dysmenorrhea, dyspareunia, pelvic pain. ANESTHESIA: General. SURGEON: Viraj Wright D.O. HARBOR MASTER: AVTAR Gilbert URINE OUTPUT: Yellow and clear. [...] Anesthesia first. Patient tolerated procedure well [facility] Clinical Note 01-08-2023 Note Date & Type Note Facility 01-08-2023 Note OP Note OPERATION DATE: 01/08/2023 ADDENDUM: Please note that the patient had her right ovary removed. Please note that the vessel sealer was used to come across the infundibulopelvic ligament, down to the broad ligament. Otherwise, the note can stay the same. [facility] Evaluation note Note Date & Type Note Facility Evaluation note Diagnosis Hormone imbalance- Primary Postoperative follow-up Follow-up examination, following unspecified surgery documented in this encounter [facility] Evaluation note Note Date & Type Note Facility Evaluation note Diagnosis Well woman exam with routine gynecological exam Routine gynecological examination documented in this encounter [facility] Summary Purpose Family History No Family History Records FoundNo Family History Records Found Advance Directives No Advanced Directives Records FoundNo Advanced Directives Records Found Additional Source Comments INFORMATION SOURCE (unrecogn ized section and content) DATE CREATED AUTHOR [facility]/18/2023 [facility] DATE CREATED AUTHOR AUTHOR'S ORGANIZ ATION 05/16/[address] [facility] EPIC Reason for Visit (unrecogniz ed section and content) Reason Comments Post-op Visit Reason Comments Well Women Visit FOR RECORDS PERTAINING TO PATIENTS WHO ARE [...] BE BASED ON THE PRIMARY CLINICAL RECORDS. [facility] [employer] provides no warranty or guarantee of the accuracy or completeness of information in this document.
[2025-06-14 15:08] LABS: Age Gdln ACOG Testing Note (.); IGP, Aptima HPV, rfx 16/18,45 Note (.)
== END 2025-06-12 15:44 | disposition home or self-care (01) ==
LOC: LAB 15:43
PROVIDERS: PCP Family Medicine; Visit Provider Obstetrics & Gynecology
DX: Z01.419 Encounter for gynecological examination (general) (routine) without abnormal findings (principal)
CPT/HCPCS: 87624; 88175